=== PATIENT | female | born 1945 | race Two or more races ===

== ENCOUNTER → 2016-09-15 | Outpatient (CLI) | payer MEDICARE, OTHER ==
[2016-09-15 13:07] LABS: PROTHROMBIN TIME 25.9 SEC (11.4-15.4)
[2016-09-15 13:17] LABS: ALANINE AMINOTRANSFERASE 22 U/L (9-52); ALBUMIN 3.5 g/dL (3.5-5.0); ALKALINE PHOSPHATASE 72 U/L (38-126); ANION GAP 9 (5-19); ASPARTATE AMINO TRANSFERASE 18 U/L (14-36); BILIRUBIN,TOTAL 0.6 mg/dL (0.2-1.3); BLOOD UREA NITROGEN 13 mg/dL (7-20); CALCIUM 9.3 mg/dL (8.4-10.2); CARBON DIOXIDE 32 mmol/L (22-30); CHLORIDE 103 mmol/L (98-107); CHOLESTEROL 169.16 mg/dL (0-200); CREATININE RESULT 0.78 mg/dL (0.52-1.25); Direct HDL 58 mg/dL (>40); GLUCOSE 94 mg/dL (75-110); POTASSIUM 4.3 mmol/L (3.6-5.0); SODIUM 143.5 mmol/L (137-145); TOTAL PROTEIN 6.6 g/dL (6.3-8.2); TRIGLYCERIDES 85 mg/dL (<150)
[2016-09-15 13:29] LABS: DIRECT LDL 88 mg/dL (<100)
== END ==
LOC: OD 11:41
PROVIDERS: ATTEND Specialist
DX: Z79.01 Long term (current) use of anticoagulants (principal); E78.4 Other hyperlipidemia; Z79.899 Other long term (current) drug therapy
CPT/HCPCS: 36415; 80053; 80061; 85610

== ENCOUNTER → 2016-09-22 | Outpatient (CLI) | payer MEDICARE, OTHER | LOC: OD 16:51 | PROVIDERS: ATTEND Family Medicine | DX: M25.572 Pain in left ankle and joints of left foot (principal) ==

== ENCOUNTER → 2016-09-22 | Outpatient (CLI) | payer MEDICARE, OTHER ==
[2016-09-22 18:02] LABS: PROTHROMBIN TIME 31.8 SEC (11.4-15.4)
[2016-09-22 18:03] LABS: PARTIAL THROMBOPLASTIN TIME 45.9 SEC (23.5-35.8)
== END ==
LOC: OD 17:03
PROVIDERS: ATTEND Family Medicine
DX: Z79.01 Long term (current) use of anticoagulants (principal)
CPT/HCPCS: 36415; 85610; 85730

== ENCOUNTER 2016-09-26 12:17 | Emergency (ER) | payer MEDICARE, OTHER ==
--- NOTE | 2016-09-26 12:29 | ER Document Report ---
ED Medical Screen (RME) - General Stated Complaint: WEAKNESS Time seen by provider: 12:24 Mode of Arrival: Wheelchair Information source: Patient Notes: 71-year-old female complaining of swelling and pain to her left ankle that started Wednesday evening. She saw Dr. Wick who told her to go home and elevate and put ice on it. The pain then spread to her whole left side including her leg in the left side of her neck. Her left arm does not hurt. She is complaining of weakness all over her whole body not just the left side. The drooping of her right eyelid is normal. 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 TRAVEL OUTSIDE OF THE [place] IN LAST 30 DAYS: No - Related Data Allergies/Adverse Reactions: captopril [Captopril] Allergy (Severe, Verified 09/26/16 12:23) cough thimerosal [From Merthiolate] Allergy (Severe, Verified 09/26/16 12:23) severe rash Past Medical History - Past Medical History Cardiac Medical History: Reports: Hx Atrial Fibrillation - A flutter, Hx Congestive Heart Failure, Hx Hypercholesterolemia, Hx Heart Murmur - req SBE prophylaxis Denies: Hx Coronary Artery Disease, Hx Heart Attack, Hx Hypertension Pulmonary Medical History: Reports: Hx Asthma - COPD, Hx Bronchitis, Hx COPD Denies: Hx Pneumonia, Hx Tuberculosis Neurological Medical History: Denies: Hx Cerebrovascular Accident - QUESTIONABLE FOR STROKE, NEG CT SCAN 2009, Hx Seizures Endocrine Medical History: Reports: Hx Diabetes Mellitus Type 1, Hx Diabetes Mellitus Type 2 GI Medical History: Reports: Hx Hiatal Hernia. Denies: Hx Hepatitis, Hx Ulcer Musculoskeltal Medical History: Reports Hx Arthritis, Reports Hx Muscle Weakness - L. upper Skin Medical History: Reports Hx Cellulitis - (neck and shoulder) Infectious Medical History: Denies: Hx Hepatitis Past Surgical History: Reports: Hx Abdominal Surgery - hernia, bowel obstruction , Hx Bowel Surgery, Hx Breast Surgery, Hx Cardiac Catheterization, Hx Gynecologic Surgery - D&C, Hx Herniorrhaphy, Hx Hysterectomy, Hx Open Heart Surgery - CATHS, ABLATION, Hx Oral Surgery, Hx Orthopedic Surgery - R knee, R toe,R knee, Hx Tonsillectomy, Hx Tubal Ligation. Denies: Hx Mastectomy, Hx Pacemaker - Immunizations Hx Diphtheria, Pertussis, Tetanus Vaccination: Yes
[2016-09-26 13:41] LABS: ABSOLUTE EOSINOPHILS # (AUTO) 0.1 10^3/uL (0.0-0.6); ABSOLUTE LYMPHOCYTES (AUTO) 1.2 10^3/uL (0.5-4.7); ABSOLUTE MONOCYTES (AUTO) 0.7 10^3/uL (0.1-1.4); ABSOLUTE NEUT (AUTO) 3.9 10^3/uL (1.7-8.2); BASOPHILS % (AUTO) 0.8 % (0-2); HEMATOCRIT 37.2 % (36.0-47.0); HGB HCT DIFFERENCE -1.2; LYMPHOCYTES % (AUTO) 20.3 % (13-45); MEAN CORPUSCULAR HEMOGLOBIN 28.6 pg (27.0-33.4); MEAN CORPUSCULAR HGB CONC 32.4 g/dL (32.0-36.0); MEAN CORPUSCULAR VOLUME 88 fl (80-97); MONOCYTES % (AUTO) 11.4 % (3-13); RED BLOOD COUNT 4.22 10^6/uL (3.72-5.28); SEGMENTED NEUTROPHILS % (AUTO) 65.5 % (42-78); WHITE BLOOD COUNT 5.9 10^3/uL (4.0-10.5)
[2016-09-26 13:44] LABS: ALANINE AMINOTRANSFERASE 16 U/L (9-52); ALBUMIN 3.7 g/dL (3.5-5.0); ALKALINE PHOSPHATASE 82 U/L (38-126); ANION GAP 12 (5-19); ASPARTATE AMINO TRANSFERASE 23 U/L (14-36); BILIRUBIN,TOTAL 0.8 mg/dL (0.2-1.3); BLOOD UREA NITROGEN 10 mg/dL (7-20); CALCIUM 9.4 mg/dL (8.4-10.2); CARBON DIOXIDE 29 mmol/L (22-30); CHLORIDE 97 mmol/L (98-107); CREATININE RESULT 0.83 mg/dL (0.52-1.25); GLUCOSE 124 mg/dL (75-110); POTASSIUM 3.8 mmol/L (3.6-5.0); TOTAL PROTEIN 7.6 g/dL (6.3-8.2)
[2016-09-26 15:27] LABS: PROTHROMBIN TIME 42.3 SEC (11.4-15.4)
[2016-09-26 15:28] LABS: PARTIAL THROMBOPLASTIN TIME 70.5 SEC (23.5-35.8)
[2016-09-26 17:00] LABS: APPEARANCE,URINE CLEAR; BILIRUBIN,URINE NEGATIVE (NEGATIVE); GLUCOSE, URINE NEGATIVE (NEGATIVE); KETONES,URINE NEGATIVE (NEGATIVE); LEUKOCYTE ESTERASE,URINE NEGATIVE (NEGATIVE); NITRITE,URINE NEGATIVE (NEGATIVE); PROTEIN,URINE NEGATIVE (NEGATIVE); URINE SPECIFIC GRAVITY 1.009; UROBILINOGEN,URINE NEGATIVE mg/dL (<2.0)
--- NOTE | 2016-09-26 17:48 | ER Document Report ---
ED General - General Chief Complaint: Weakness Stated Complaint: WEAKNESS Mode of Arrival: Wheelchair TRAVEL OUTSIDE OF THE [place] IN LAST 30 DAYS: No - HPI Patient complains to provider of: left foot pain and swelling left-sided weakness Notes: Patient with left foot pain and swelling left-sided weakness ongoing for the last 2-4 days. Patient did recently see her PCP for these symptoms without any clear etiology. Patient denies any trauma or injury to her lower extremity patient states mostly the weakness seems to be and the whole entire's left side of her body and in her throat. Denies any nausea vomiting fevers chills painful swallowing difficulty swallowing. Patient does ambulated with a walker patient states no change in her ambulation denies any falls. 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 - Related Data Allergies/Adverse Reactions: captopril [Captopril] Allergy (Severe, Verified 09/26/16 12:23) cough thimerosal [From Merthiolate] Allergy (Severe, Verified 09/26/16 12:23) severe rash Past Medical History - General Information source: Patient - Social History Smoking Status: Never Smoker Chew tobacco use (# tins/day): No Frequency of alcohol use: None Drug Abuse: None Family History: Reviewed & Not Pertinent, Other Patient has suicidal ideation: No Patient has homicidal ideation: No - Past Medical History Cardiac Medical History: Reports: Hx Atrial Fibrillation - A flutter, Hx Congestive Heart Failure, Hx Hypercholesterolemia, Hx Heart Murmur - req SBE prophylaxis Denies: Hx Coronary Artery Disease, Hx Heart Attack, Hx Hypertension Pulmonary Medical History: Reports: Hx Asthma - COPD, Hx Bronchitis, Hx COPD Denies: Hx Pneumonia, Hx Tuberculosis Neurological Medical History: Denies: Hx Cerebrovascular Accident - QUESTIONABLE FOR STROKE, NEG CT SCAN 2009, Hx Seizures Endocrine Medical History: Reports: Hx Diabetes Mellitus Type 1, Hx Diabetes Mellitus Type 2 Renal/ Medical History: Denies: Hx Peritoneal Dialysis GI Medical History: Reports: Hx Hiatal Hernia. Denies: Hx Hepatitis, Hx Ulcer Musculoskeltal Medical History: Reports Hx Arthritis, Reports Hx Muscle Weakness - L. upper Skin Medical History: Reports Hx Cellulitis - (neck and shoulder) Infectious Medical History: Denies: Hx Hepatitis Past Surgical History: Reports: Hx Abdominal Surgery - hernia, bowel obstruction , Hx Bowel Surgery, Hx Breast Surgery, Hx Cardiac Catheterization, Hx Gynecologic Surgery - D&C, Hx Herniorrhaphy, Hx Hysterectomy, Hx Open Heart Surgery - CATHS, ABLATION, Hx Oral Surgery, Hx Orthopedic Surgery - R knee, R toe,R knee, Hx Tonsillectomy, Hx Tubal Ligation. Denies: Hx Mastectomy, Hx Pacemaker - Immunizations Hx Diphtheria, Pertussis, Tetanus Vaccination: Yes Hx Pneumococcal Vaccination: 09/06/10 Review of Systems - Review of Systems Constitutional: No symptoms reported EENT: No symptoms reported Cardiovascular: No symptoms reported Respiratory: No symptoms reported Gastrointestinal: No symptoms reported Genitourinary: No symptoms reported Female Genitourinary: No symptoms reported Musculoskeletal: Leg swelling, Other - Weakness Skin: No symptoms reported Hematologic/Lymphatic: No symptoms reported Neurological/Psychological: Other - Weakness Physical Exam - Vital signs Vitals: Temp Pulse Resp BP Pulse Ox 98.5 F 77 24 H 116/54 L 98 09/26/16 12:24 09/26/16 12:24 09/26/16 12:24 09/26/16 12:24 09/26/16 12:24 Interpretation: Normal - General General appearance: Appears well, Alert - HEENT Head: Normocephalic, Atraumatic Eyes: Normal Pupils: PERRL - Respiratory Respiratory status: No respiratory distress Chest status: Nontender Breath sounds: Normal Chest palpation: Normal - Cardiovascular Rhythm: Regular Heart sounds: Normal auscultation Murmur: No - Abdominal Inspection: Normal Distension: No distension Bowel sounds: Normal Tenderness: Nontender Organomegaly: No organomegaly - Back Back: Normal, Nontender - Extremities General upper extremity: Normal inspection, Nontender, Normal color, Normal ROM , Normal temperature General lower extremity: Nontender, Normal color, Normal ROM, Normal temperature , Normal weight bearing. No: Normal inspection - Patient has swelling left foot left leg greater than right pulses intact there is tenderness to palpation of the midfoot there is ecchymosis to the left lateral malleolus. Swelling does go to the calf there is some erythema but leg is not excessively warm not consistent with cellulitis, Onesimo's sign - Neurological Neuro grossly intact: Yes Cognition: Normal Orientation: AAOx4 Kim Coma Scale Eye Opening: Spontaneous [place] Coma Scale Verbal: Oriented [place] Coma Scale Motor: Obeys Commands [place] Coma Scale Total: 15 Speech: Normal Cranial nerves: Normal Motor strength normal: LUE, RUE, LLE, RLE Sensory: Normal - Psychological Associated symptoms: Normal affect, Normal mood - Skin Skin Temperature: Warm Skin Moisture: Dry Skin Color: Normal Course - Re-evaluation Re-evalutation: 09/26/16 22:33 X-ray shows possible cuboid fracture. This is consistent with the patient's tenderness on examination. Examination of the leg does not show signs of cellulitis. Unclear etiology is patient does have some ecchymosis to the lateral malleolus unaware of any trauma though. Patient's weakness that she is complaining about is inconsistent reexamination continuity director strength equal patient is able ambulate patient has no difficulty in swallowing there is no facial drooping. CT scan was performed as patient is on anticoagulation there is no signs of stroke or bleed. Discussed with family at length. Patient's lab work shows supratherapeutic Coumadin with no bleeding recommend patient hold her next Coumadin dose and resume regular dosing. Recommended patient follow-up with her PCP. Patient was placed in a postop shoe and discharged home. - Vital Signs Vital signs: Temp Pulse Resp BP Pulse Ox 98.2 F 78 22 H 126/60 H 99 09/26/16 18:10 09/26/16 18:10 09/26/16 18:10 09/26/16 18:10 09/26/16 18:10 - Laboratory Result Diagrams: 09/26/16 12:42 09/26/16 12:42 Laboratory results interpreted by me: 09/26/16 09/26/16 09/26/16 12:42 15:04 16:40 PT 42.3 H APTT 70.5 H Chloride 97 L Glucose 124 H Urine Blood SMALL H Procedures - Immobilization Left Foot Immobilizer type: Post-op shoe Performed by: PCT Post-Proc Neuro Vasc Exam: Normal Alignment checked and good: No Discharge - Discharge Clinical Impression: Weakness, Elevated INR Closed left cuboid fracture Qualifiers: Encounter type: initial encounter Fracture alignment: nondisplaced Qualified Code(s): S92.215A - Nondisplaced fracture of cuboid bone of left foot, initial encounter for closed fracture Condition: Good Disposition: HOME, SELF-CARE Instructions: Foot Fracture ([facility]), Post-Op Shoe ([facility]), Weakness ([facility]) Additional Instructions: Your CT of your head lab work showed no critical findings to explain her weakness. Elaborate does show that your INR is elevated. Please hold her dose of Coumadin tonight resume your regular Coumadin dosing tomorrow. I recommend following up with your physician in 3-5 days for repeat INR testing. Your x-ray her foot does show a cuboid fracture. Treatment at this time will involve placing you in a postop shoe or a hard sole shoe. Continue to take your Percocet pain medication at home as patient prescribed. Elevate your leg and place ice to aid in the swelling. Prescriptions: Oxycodone HCl/Acetaminophen [Percocet 5-325 mg Tablet] 1 - 2 tab PO Q4H PRN #15 tablet PRN Reason: Referrals: THONG HARRIS MD [Primary Care Provider] - Follow up in 3-5 days
[2016-09-26 19:02] VITALS: BP 126/60
== END 2016-09-26 18:10 | disposition home or self-care (01) ==
LOC: ER 12:17
DX: S92.215A Nondisplaced fracture of cuboid bone of left foot, initial encounter for closed fracture (principal); R53.1 Weakness; X58.XXXA Exposure to other specified factors, initial encounter
CPT/HCPCS: 36415; 70450; 80053; 81001; 84550; 85025; 85610; 85730; 99285

== ENCOUNTER → 2016-10-02 | Outpatient (CLI) | payer MEDICARE, OTHER ==
[2016-10-02 15:36] LABS: PROTHROMBIN TIME 35.9 SEC (11.4-15.4)
== END ==
LOC: OD 14:51
PROVIDERS: ATTEND Specialist
DX: I48.0 Paroxysmal atrial fibrillation (principal); Z79.01 Long term (current) use of anticoagulants
CPT/HCPCS: 36415; 85610

== ENCOUNTER → 2016-11-18 | Outpatient (CLI) | payer MEDICARE, OTHER ==
[2016-11-18 19:02] LABS: PROTHROMBIN TIME 37.5 SEC (11.4-15.4)
== END ==
LOC: OD 17:44
PROVIDERS: ATTEND Specialist
DX: I48.0 Paroxysmal atrial fibrillation (principal); Z79.01 Long term (current) use of anticoagulants
CPT/HCPCS: 36415; 85610

== ENCOUNTER → 2016-11-30 | Outpatient (CLI) | payer MEDICARE, OTHER | LOC: RAD 13:15 | PROVIDERS: ATTEND Surgery | DX: R22.2 Localized swelling, mass and lump, trunk (principal); L02.211 Cutaneous abscess of abdominal wall | CPT/HCPCS: 74177; 82565 ==

== ENCOUNTER → 2016-12-02 | Outpatient (CLI) | payer MEDICARE, OTHER ==
[2016-12-02 14:35] LABS: PARTIAL THROMBOPLASTIN TIME 30.2 SEC (23.5-35.8); PROTHROMBIN TIME 15.6 SEC (11.4-15.4)
== END ==
LOC: OD 13:56
PROVIDERS: ATTEND Physician Assistant
DX: Z79.01 Long term (current) use of anticoagulants (principal)
CPT/HCPCS: 36415; 85610; 85730

== ENCOUNTER 2016-12-17 21:22 | Observation (INO) | payer MEDICARE, OTHER ==
--- NOTE | 2016-12-17 21:38 | ER Document Report ---
ED Medical Screen (RME) - General Chief Complaint: General Weakness Stated Complaint: WEAKNESS Notes: 71-year-old female, reports reduced appetite, feeling dehydrated, lightheaded when she stands, intermittent abdominal pains, frequency of urination and feels like she cannot control when she is urinating. Denies back injury, fever, she states she feels generally weak but denies any new focal weaknesses. TRAVEL OUTSIDE OF THE [place] IN LAST 30 DAYS: No - Related Data Allergies/Adverse Reactions: captopril [Captopril] Allergy (Severe, Verified 09/26/16 12:23) cough thimerosal [From Merthiolate] Allergy (Severe, Verified 09/26/16 12:23) severe rash Past Medical History - Past Medical History Cardiac Medical History: Reports: Hx Atrial Fibrillation - A flutter, Hx Congestive Heart Failure, Hx Hypercholesterolemia, Hx Heart Murmur - req SBE prophylaxis Denies: Hx Coronary Artery Disease, Hx Heart Attack, Hx Hypertension Pulmonary Medical History: Reports: Hx Asthma - COPD, Hx Bronchitis, Hx COPD Denies: Hx Pneumonia, Hx Tuberculosis Neurological Medical History: Denies: Hx Cerebrovascular Accident - QUESTIONABLE FOR STROKE, NEG CT SCAN 2009, Hx Seizures Endocrine Medical History: Reports: Hx Diabetes Mellitus Type 1, Hx Diabetes Mellitus Type 2 Renal/ Medical History: Denies: Hx Peritoneal Dialysis GI Medical History: Reports: Hx Hiatal Hernia. Denies: Hx Hepatitis, Hx Ulcer Musculoskeltal Medical History: Reports Hx Arthritis, Reports Hx Muscle Weakness - L. upper Skin Medical History: Reports Hx Cellulitis - (neck and shoulder) Infectious Medical History: Denies: Hx Hepatitis Past Surgical History: Reports: Hx Abdominal Surgery - hernia, bowel obstruction , Hx Bowel Surgery, Hx Breast Surgery, Hx Cardiac Catheterization, Hx Gynecologic Surgery - D&C, Hx Herniorrhaphy, Hx Hysterectomy, Hx Open Heart Surgery - CATHS, ABLATION, Hx Oral Surgery, Hx Orthopedic Surgery - R knee, R toe,R knee, Hx Tonsillectomy, Hx Tubal Ligation. Denies: Hx Mastectomy, Hx Pacemaker - Immunizations Hx Diphtheria, Pertussis, Tetanus Vaccination: Yes Physical Exam - Abdominal Tenderness: Tender - Very mild generalized tenderness with no guarding or rigidity
[2016-12-17 22:44] LABS: APPEARANCE,URINE CLOUDY; BILIRUBIN,URINE NEGATIVE (NEGATIVE); GLUCOSE, URINE NEGATIVE (NEGATIVE); KETONES,URINE NEGATIVE (NEGATIVE); LEUKOCYTE ESTERASE,URINE LARGE (NEGATIVE); NITRITE,URINE NEGATIVE (NEGATIVE); PROTEIN,URINE 30 mg/dL (NEGATIVE); URINE SPECIFIC GRAVITY 1.006; UROBILINOGEN,URINE NEGATIVE mg/dL (<2.0)
[2016-12-17 22:55] LABS: ALANINE AMINOTRANSFERASE 32 U/L (9-52); ALBUMIN 3.5 g/dL (3.5-5.0); ALKALINE PHOSPHATASE 101 U/L (38-126); ANION GAP 15 (5-19); ASPARTATE AMINO TRANSFERASE 23 U/L (14-36); BILIRUBIN,DIRECT 0.3 mg/dL (0.0-0.4); BILIRUBIN,TOTAL 0.9 mg/dL (0.2-1.3); BLOOD UREA NITROGEN 23 mg/dL (7-20); CALCIUM 8.8 mg/dL (8.4-10.2); CARBON DIOXIDE 24 mmol/L (22-30); CHLORIDE 98 mmol/L (98-107); CREATINE KINASE 115 U/L (30-135); CREATININE RESULT 1.15 mg/dL (0.52-1.25); GLUCOSE 149 mg/dL (75-110); POTASSIUM 3.3 mmol/L (3.6-5.0); SODIUM 137.1 mmol/L (137-145); TOTAL PROTEIN 6.9 g/dL (6.3-8.2)
[2016-12-17] MEDS ORDERED: NORMAL SALINE 1000 ML 500 ML IV ONE (22:56)
--- NOTE | 2016-12-17 22:59 | ER Document Report ---
ED General - General Chief Complaint: General Weakness Stated Complaint: WEAKNESS Time seen by provider: 22:50 Notes: Patient is a 71-year-old female that comes emergency department for chief complaint of several days of worsening weakness, reduced appetite, intermittent abdominal pains, urinary frequency, and feeling weak and lightheaded when she stands. She denies headache. She denies fever, chest pain, shortness of breath. She denies any focal new weakness. Past medical history multiple comorbidities including CVA with right-sided deficit, hypertension, CHF, atrial fibrillation with Coumadin use, type II diabetes. TRAVEL OUTSIDE OF THE [place] IN LAST 30 DAYS: No - Related Data Allergies/Adverse Reactions: captopril [Captopril] Allergy (Severe, Verified 09/26/16 12:23) cough thimerosal [From Merthiolate] Allergy (Severe, Verified 09/26/16 12:23) severe rash Past Medical History - General Information source: Patient - Social History Smoking Status: Never Smoker Frequency of alcohol use: None Drug Abuse: None Lives with: Alone Family History: Reviewed & Not Pertinent, Other Patient has suicidal ideation: No Patient has homicidal ideation: No - Past Medical History Cardiac Medical History: Reports: Hx Atrial Fibrillation - A flutter, Hx Congestive Heart Failure, Hx Hypercholesterolemia, Hx Heart Murmur - req SBE prophylaxis Denies: Hx Coronary Artery Disease, Hx Heart Attack, Hx Hypertension Pulmonary Medical History: Reports: Hx Asthma - COPD, Hx Bronchitis, Hx COPD Denies: Hx Pneumonia, Hx Tuberculosis Neurological Medical History: Denies: Hx Cerebrovascular Accident - QUESTIONABLE FOR STROKE, NEG CT SCAN 2009, Hx Seizures Endocrine Medical History: Reports: Hx Diabetes Mellitus Type 2 Renal/ Medical History: Denies: Hx Peritoneal Dialysis GI Medical History: Reports: Hx Hiatal Hernia. Denies: Hx Hepatitis, Hx Ulcer Musculoskeltal Medical History: Reports Hx Arthritis, Reports Hx Muscle Weakness - L. upper Skin Medical History: Reports Hx Cellulitis - (neck and shoulder) Infectious Medical History: Denies: Hx Hepatitis Past Surgical History: Reports: Hx Abdominal Surgery - hernia, bowel obstruction , Hx Bowel Surgery, Hx Breast Surgery, Hx Cardiac Catheterization, Hx Gynecologic Surgery - D&C, Hx Herniorrhaphy, Hx Hysterectomy, Hx Open Heart Surgery - CATHS, ABLATION, Hx Oral Surgery, Hx Orthopedic Surgery - R knee, R toe,R knee, Hx Tonsillectomy, Hx Tubal Ligation. Denies: Hx Mastectomy, Hx Pacemaker - Immunizations Hx Diphtheria, Pertussis, Tetanus Vaccination: Yes Hx Pneumococcal Vaccination: 09/06/10 Review of Systems - Review of Systems Constitutional: See HPI EENT: No symptoms reported Cardiovascular: See HPI Respiratory: No symptoms reported Gastrointestinal: No symptoms reported Genitourinary: See HPI Female Genitourinary: No symptoms reported Musculoskeletal: No symptoms reported Skin: No symptoms reported Hematologic/Lymphatic: No symptoms reported Neurological/Psychological: No symptoms reported Physical Exam - Vital signs Vitals: Temp Pulse BP 99.7 F 78 139/64 H 12/17/16 21:28 12/17/16 21:28 12/17/16 21:28 Interpretation: Normal - General General appearance: Other - patient appears to be tired, but is not in distress. Patient ambulates with a cane slowly - HEENT Head: Normocephalic, Atraumatic Eyes: Normal Conjunctiva: Normal Extraocular movements intact: Yes Eyelashes: Normal Pupils: PERRL Sinus: Normal Nasal: Normal Mouth/Lips: Normal Mucous membranes: Normal Pharynx: Normal Neck: Normal - Respiratory Respiratory status: No respiratory distress Chest status: Nontender Breath sounds: Normal. No: Decreased air movement, Wheezing Chest palpation: Normal - Cardiovascular Rhythm: Regular Heart sounds: Normal auscultation Murmur: No - Abdominal Inspection: Normal Distension: No distension Bowel sounds: Normal Tenderness: Nontender. No: Tender, Guarding Organomegaly: No organomegaly - Back Back: Normal, Nontender - Extremities General upper extremity: Normal inspection, Nontender, Normal color, Normal ROM , Normal temperature General lower extremity: Normal inspection, Nontender, Normal color, Normal ROM , Normal temperature, Normal weight bearing. No: Onesimo's sign - Neurological Neuro grossly intact: Yes Cognition: Normal Orientation: AAOx4 [place] Coma Scale Eye Opening: Spontaneous [place] Coma Scale Verbal: Oriented [place] Coma Scale Motor: Obeys Commands Kim Coma Scale Total: 15 Speech: Normal Cranial nerves: Normal. 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 Urine culture placed, patient given a dose of Rocephin. No fever, no hypotension or tachycardia. No CVA tenderness or noted abdominal tenderness on examination. On reevaluation patient states that she told me incorrectly, she states that she actually has been having chest pain, she states that specifically today when she was getting up and moving around she would have a discomfort across the front of her chest which would then resolve when she rested. Patient denies any current chest pain or chest pain within the last several hours. Aspirin was given additionally. Patient had a negative cardiac catheterization 2 years ago, denies having a heart attack. EKG showing sinus rhythm with no T- wave inversions or ST segment changes in consecutive leads. No acute abnormalities noted. Cardiac enzymes initially negative. Patient discussed with Dr. Max. Discussed with Dr. Wick, patient will be admitted to the hospital, patient is very agreeable with this and states that she definitely did not want to go home. - Vital Signs Vital signs: Temp Pulse Resp BP Pulse Ox 99.7 F 78 22 H 114/41 L 97 12/17/16 21:28 12/17/16 21:28 12/18/16 04:01 12/18/16 04:01 12/18/16 04:01 - Laboratory Result Diagrams: 12/18/16 00:21 12/17/16 22:14 Laboratory results interpreted by me: 12/17/16 12/17/16 12/18/16 22:14 22:14 00:21 Hgb 11.2 L Hct 32.8 L RDW 14.8 H Seg Neutrophils % 80.7 H Lymphocytes % 10.4 L PT Potassium 3.3 L BUN 23 H Est GFR ( Amer) 57 L Est GFR (Non-Af Amer) 47 L Glucose 149 H Urine Protein 30 H Urine Blood MODERATE H Ur Leukocyte Esterase LARGE H 12/18/16 00:21 Hgb Hct RDW Seg Neutrophils % Lymphocytes % PT 36.5 H Potassium BUN Est GFR ( Amer) Est GFR (Non-Af Amer) Glucose Urine Protein Urine Blood Ur Leukocyte Esterase Discharge - Discharge Clinical Impression: Generalized weakness Chest pain Qualifiers: Chest pain type: unspecified Qualified Code(s): R07.9 - Chest pain, unspecified Urinary tract infection Qualifiers: Urinary tract infection type: site unspecified Hematuria presence: without hematuria Qualified Code(s): N39.0 - Urinary tract infection, site not specified Condition: Stable Disposition: ADMITTED INPATIENT Admitting Provider: Wick Unit Admitted: Telemetry
[2016-12-17] MEDS ORDERED: CEFTRIAXONE 1 GM/D5W RTU 50 ML IV ONE (23:28)
[2016-12-18 00:39] LABS: ABSOLUTE MONOCYTES (AUTO) 0.8 10^3/uL (0.1-1.4); ABSOLUTE NEUT (AUTO) 7.8 10^3/uL (1.7-8.2); BASOPHILS % (AUTO) 0.4 % (0-2); EOSINOPHILS % (AUTO) 0.3 % (0-6); HEMATOCRIT 32.8 % (36.0-47.0); HEMOGLOBIN 11.2 g/dL (12.0-15.5); HGB HCT DIFFERENCE 0.8; LYMPHOCYTES % (AUTO) 10.4 % (13-45); MEAN CORPUSCULAR HEMOGLOBIN 29.2 pg (27.0-33.4); MEAN CORPUSCULAR HGB CONC 34.2 g/dL (32.0-36.0); MEAN CORPUSCULAR VOLUME 85 fl (80-97); MONOCYTES % (AUTO) 8.2 % (3-13); RED BLOOD COUNT 3.84 10^6/uL (3.72-5.28); RED CELL DISTRIBUTION WIDTH 14.8 % (11.5-14.0); SEGMENTED NEUTROPHILS % (AUTO) 80.7 % (42-78); WHITE BLOOD COUNT 9.7 10^3/uL (4.0-10.5)
[2016-12-18 00:43] LABS: PROTHROMBIN TIME 36.5 SEC (11.4-15.4)
[2016-12-18 01:13] LABS: CREATINE KINASE MB 1.36 ng/mL (<4.55); TROPONIN I < 0.012 ng/mL
[2016-12-18] MEDS ORDERED: ASPIRIN 81 MG TABLET, CHEWABLE PO ONE (01:50)
[2016-12-18] MEDS ORDERED: POTASSIUM CHLORIDE 10 MEQ TABLET.SA PO ONE (03:01)
[2016-12-18] MEDS ORDERED: DEXTROSE 50%-WATER SYRINGE 25 GM/50 ML DOSE IV PRN (05:54)
[2016-12-18] MEDS ORDERED: DEXTROSE 40% GEL 15 GM TUBE PO PRN ×3 (05:54→07:36)
[2016-12-18] MEDS ORDERED: DEXTROSE 40% GEL 15 GM TUBE X 2 PO PRN (05:54)
[2016-12-18] MEDS ORDERED: INSULIN LISPRO 100 UNIT/ML 3 ML VIAL SUBCUT PRN (05:54)
[2016-12-18] MEDS ORDERED: DEXTROSE 50%-WATER SYRINGE 12.5 GM/25 ML DOSE IV PRN (05:54)
[2016-12-18] MEDS ORDERED: GLUCAGON,HUMAN RECOMB 1 MG INJ IM PRN ×2 (05:54→07:36)
[2016-12-18] MEDS ORDERED: DEXTROSE 50%-WATER 25 GM/50 ML DISP.SYRIN IV PRN ×2 (07:36)
--- NOTE | 2016-12-18 07:39 | EKG REPORT ---
SEVERITY:- BORDERLINE ECG - SINUS RHYTHM BORDERLINE T ABNORMALITIES, ANTERIOR LEADS : Confirmed by: Srikanth Valencia MD 18-Dec-2016 07:39:07
[2016-12-18 10:25] LABS: CREATINE KINASE MB 1.32 ng/mL (<4.55)
[2016-12-18 10:28] LABS: TROPONIN I < 0.012 ng/mL
--- NOTE | 2016-12-18 11:19 | PDOC H&P ---
History of Present Illness Admission Date/PCP: 12/18/16 05:33 THONG HARRIS MD Patient complains of: Weakness and the chest pain History of Present Illness: LAM PETIT is a 71 year old female This is a 71-year-old female with a multiple medical problems including the history of the hypertension hyperlipidemia type 2 diabetes mellitus and history of the coronary artery disease and history of the cerebrovascular accident with the history of the fibromyalgia the patient's and the multiple other abdominal wall issues with a chronic wound came to the emergency department with the complaint of generalized weakness and not feeling well. Patient also complains of chest pain which is ongoing problems more left and right both side. Patient have a cardiac cath was done 2 years back and was stable and patient also see her Dr. Bernal for his coronary artery disease and A. fib. Patient also noticed that her Coumadin level is very up and down since last several months and so many dose was changed her Dr. gonzalez office In the ER workup patient's EKG and a cardiac enzyme was all stable and patient' s potassium was low and possible urinary tract infections Patient was given IV Rocephin 1 g and replace the potassiums Patient's currently denied any chest pain denied any shortness of breath. Patient INR is 3.47 Past Medical History Cardiac Medical History: Reports: Atrial Fibrillation - A flutter, Congestive Heart Failure, Hyperlipidema, Heart Murmur - req SBE prophylaxis Denies: Coronary Artery Disease, Myocardial Infarction, Hypertension Pulmonary Medical History: Reports: Asthma - COPD, Bronchitis, Chronic Obstructive Pulmonary Disease (COPD), Sleep Apnea Denies: Pneumonia, Tuberculosis Neurological Medical History: Reports: Ischemic CVA Denies: Seizures Endocrine Medical History: Reports: Diabetes Mellitus Type 2 Renal/ Medical History: Reports: Chronic Kidney Disease Malignancy Medical History: Reports: Cervical Cancer GI Medical History: Reports: Hiatal Hernia Denies: Hepatitis GI History Note: Anemia and currently see a Dr. Pierce for that Musculoskeltal Medical History: Reports: Arthritis Psychiatric Medical History: Reports: Depression, General Anxiety Disorder Psychiatric History Note: Fibromyalgia Hematology: Reports: Anemia - hx of Denies: Hemophilia, Sickle Cell Disease Past Surgical History Past Surgical History: Reports: 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, Cardiac Catheterization, Herniorrhaphy, Hysterectomy, Orthopedic Surgery - R knee, R toe ,R knee, Tonsillectomy, Tubal Ligation Denies: Mastectomy, Pacemaker Social History Lives with: Alone Smoking Status: Former Smoker Number of Years Smokin Last Time Smoked: 1991 Frequency of Alcohol Use: None Hx Recreational Drug Use: No Hx Prescription Drug Abuse: No - Advance Directive Resuscitation Status: Full Code Family History Family History: Reviewed & Not Pertinent, Other Parental Family History Reviewed: Yes Children Family History Reviewed: Yes Sibling(s) Family History Reviewed.: Yes Medication/Allergy Home Medications: Albuterol Sulfate [Proair HFA] 1 puff IH Q4HP PRN 12/18/16 Alprazolam [Xanax 0.25 mg Tablet] 0.25 mg PO DAILYP PRN 12/18/16 Atorvastatin Calcium [Lipitor 10 mg Tablet] 10 mg PO DAILY 12/18/16 Benazepril HCl [Lotensin 10 mg Tablet] 10 mg PO DAILY 12/18/16 Duloxetine HCl [Cymbalta] 60 mg PO DAILY 12/18/16 Escitalopram Oxalate [Lexapro] 5 mg PO QHS 12/18/16 Fluticasone Propionate [Flonase Nasal [place] 50 Mcg/[place] 16 gm] 2 spray NASL BID 12/18/16 Fluticasone/Salmeterol [Advair 250-50 Diskus 14 Dose/Diskus] 1 puff IH BID 12/18 Furosemide [Lasix] 20 mg PO DAILY 12/18/16 Hydrochlorothiazide 25 mg PO DAILY 12/18/16 Levothyroxine Sodium [Synthroid] 125 mcg PO DAILY 12/18/16 Lubiprostone [Amitiza 24 Mcg Capsule] 24 mcg PO BIDBS 12/18/16 Metoprolol Succinate [Toprol Xl 25 mg Tab.sr] 37.5 mg PO DAILY 12/18/16 Montelukast Sodium [Singulair 10 mg Tablet] 10 mg PO QPM 12/18/16 Oxycodone HCl/Acetaminophen [Percocet 5-325 mg Tablet] 1 tab PO BIDP PRN Polyethylene Glycol 3350 [Miralax Powder 17 gm/Packet] 17 gm PO QHS 12/18/16 Sitagliptin Phosphate [Januvia] 100 mg PO DAILY 12/18/16 Tiotropium [place] [Spiriva Handihaler 18 mcg/dose (30 Dose)] 1 cap IH DAILY Warfarin Sodium [Coumadin 5 mg Tablet] 5 mg PO QHS 12/18/16 Allergies/Adverse Reactions: captopril [Captopril] Allergy (Severe, Verified 09/26/16 12:23) cough thimerosal [From Merthiolate] Allergy (Severe, Verified 09/26/16 12:23) severe rash Review of Systems Constitutional: PRESENT: anorexia, fatigue, weakness. ABSENT: chills, fever(s) , headache(s), weight gain, weight loss Eyes: ABSENT: visual disturbances Ears: ABSENT: hearing changes Cardiovascular: PRESENT: chest pain. ABSENT: dyspnea on exertion, edema, orthropnea, palpitations Respiratory: ABSENT: cough, hemoptysis Gastrointestinal: PRESENT: abdominal pain. ABSENT: constipation, diarrhea, hematemesis, hematochezia, nausea, vomiting Genitourinary: ABSENT: dysuria, hematuria Musculoskeletal: ABSENT: joint swelling Integumentary: ABSENT: rash, wounds Neurological: ABSENT: abnormal gait, abnormal speech, confusion, dizziness, focal weakness, syncope Psychiatric: ABSENT: anxiety, depression, homidical ideation, suicidal ideation Endocrine: ABSENT: cold intolerance, heat intolerance, menstrual abnormalities, polydipsia, polyuria Hematologic/Lymphatic: ABSENT: easy bleeding, easy bruising, lymphadenopathy Physical Exam Vital Signs: Temp Pulse Resp BP Pulse Ox 99.8 F 85 18 135/56 H 100 12/18/16 08:22 12/18/16 08:22 12/18/16 08:22 12/18/16 08:22 12/18/16 08:22 Intake & Output 12/17/16 12/18/16 12/19/16 06:59 06:59 06:59 Intake Total 120 Balance 120 Weight 88.6 kg General appearance: PRESENT: no acute distress, well-developed, well-nourished Head exam: PRESENT: atraumatic, normocephalic Eye exam: PRESENT: conjunctiva pink, EOMI, PERRLA. ABSENT: scleral icterus Ear exam: PRESENT: normal external ear exam Mouth exam: PRESENT: moist, tongue midline Neck exam: PRESENT: full ROM. ABSENT: carotid bruit, JVD, lymphadenopathy, thyromegaly Respiratory exam: PRESENT: clear to auscultation michele Cardiovascular exam: PRESENT: RRR. ABSENT: diastolic murmur, rubs, systolic murmur Pulses: PRESENT: normal dorsalis pedis pul, +2 pedal pulses bilateral Vascular exam: PRESENT: normal capillary refill GI/Abdominal exam: PRESENT: normal bowel sounds, soft. ABSENT: distended, guarding, mass, organolmegaly, rebound, tenderness Rectal exam: PRESENT: deferred Neurological exam: PRESENT: alert, awake, oriented to person, oriented to place , oriented to time, oriented to situation, CN II-XII grossly intact. ABSENT: motor sensory deficit Psychiatric exam: PRESENT: appropriate affect, normal mood. ABSENT: homicidal ideation, suicidal ideation Skin exam: PRESENT: dry, intact, warm. ABSENT: cyanosis, rash Results Laboratory Results: 12/18/16 12/18/16 09:30 09:30 Creatine Kinase 91 CK-MB (CK-2) 1.32 Troponin I < 0.012 Impressions: Chest X-Ray 12/17/16 21:40 IMPRESSION: HEART ENLARGED WITHOUT FAILURE. NO OTHER SIGNIFICANT RADIOGRAPHIC FINDING IN THE CHEST. Assessment & Plan - Diagnosis (1) Chest pain Qualifiers: Chest pain type: unspecified Qualified Code(s): R07.9 - Chest pain, unspecified Is this a current diagnosis for this admission?: YesPlan: Patient initial EKG and cardiac enzyme is negative most likely a noncardiac but with the significant comorbidity will check the patient's undercar specialist for further evaluations (2) Urinary tract infection Qualifiers: Urinary tract infection type: site unspecified Hematuria presence: without hematuria Qualified Code(s): N39.0 - Urinary tract infection, site not specified Is this a current diagnosis for this admission?: YesPlan: Start the patient on IV Rocephin patient also have a history of the urinary incontinent and patient used to see the Dr. Lowe the urologist regularly (3) Coronary artery disease Qualifiers: Coronary Disease-Associated Artery/Lesion type: unspecified vessel or lesion type Is this a current diagnosis for this admission?: YesPlan: Follow with the cardiology (4) Hyperlipidemia Qualifiers: Hyperlipidemia type: unspecified Qualified Code(s): E78.5 - Hyperlipidemia, unspecified Is this a current diagnosis for this admission?: YesPlan: Stable (5) Sleep apnea Qualifiers: Sleep apnea type: unspecified type Qualified Code(s): G47.30 - Sleep apnea, unspecified Is this a current diagnosis for this admission?: YesPlan: Uses CPAP machine daily (6) Depression Qualifiers: Depression Type: other depression Qualified Code(s): F32.89 - Other specified depressive episodes Is this a current diagnosis for this admission?: YesPlan: Continues to current medications (7) Generalized weakness Is this a current diagnosis for this admission?: YesPlan: With multifactorial will get the CT of the head and continues to current other medications replace the potassium and continues to IV antibiotic until the cultures come back (8) Hypertension Qualifiers: Hypertension type: unspecified secondary hypertension Qualified Code (s): I15.9 - Secondary hypertension, unspecified; I15 - Secondary hypertension Is this a current diagnosis for this admission?: YesPlan: Currently stable (9) Chronic atrial fibrillation Is this a current diagnosis for this admission?: YesPlan: Check the PT/INR daily while in the hospital and patients follow Dr. Alexander's office regularly - Time Time Spent: 50 to 70 Minutes Medications reviewed and adjusted accordingly: Yes Anticipated discharge: Home Within: within 48 hours - Inpatient Certification Medical Necessity: Need Close Monitoring Due to Risk of Patient Decompensation, Need for IV Antibiotics Post Hospital Care: [employer] Director Documentation - Plan Summary Plan Summary: We will get the CT of the head and continues to current other medications consult the cardiology and the physical therapy. If everything looks stable patients can discharge home with the p.o. antibiotic
[2016-12-18] MEDS ORDERED: ALBUTEROL SULFATE HFA (90 MCG/PUFF) 8 GM MDI (1 MDI/ER DISP) IH PRN (11:20)
[2016-12-18] MEDS ORDERED: OXYCODONE-ACETAMINOPHEN 5-325 MG TABLET PO PRN (11:20)
[2016-12-18] MEDS ORDERED: ALPRAZOLAM 0.25 MG TABLET PO PRN (11:20)
[2016-12-18] MEDS ORDERED: ALBUTEROL SULFATE HFA (90 MCG/PUFF) 200 PUFF/8.5 GM MDI IH PRN (11:32)
[2016-12-18] MEDS: INSULIN REG, HUMAN 100 UNIT/ML 3 ML VIAL (PYX) SUBCUT PRN ×2 (12:57→21:27)
[2016-12-18] MEDS ORDERED: LEVOTHYROXINE SODIUM 0.025 MG TABLET PO ONE (13:00)
[2016-12-18] MEDS ORDERED: LEVOTHYROXINE SODIUM 0.1 MG TABLET PO ONE (13:00)
[2016-12-18 16:52] LABS: CREATINE KINASE MB 0.74 ng/mL (<4.55)
[2016-12-18 16:58] LABS: TROPONIN I < 0.012 ng/mL
[2016-12-18] MEDS ORDERED: ACETAMINOPHEN 325 MG TABLET PO PRN (17:04)
[2016-12-18] MEDS: FLUTICASONE NASAL SPRAY 50 MCG/SPRY 120 SPRAY/16 GM NASL SCH (17:12)
[2016-12-18] MEDS: FLUTICASONE/SALMETEROL DISKUS 250-50 MCG/DOSE IH SCH (17:12)
[2016-12-18] MEDS: LUBIPROSTONE 24 MCG CAPSULE PO SCH (17:12)
[2016-12-18] MEDS: MONTELUKAST SODIUM 10 MG TABLET PO SCH (17:12)
[2016-12-18] MEDS: ESCITALOPRAM OXALATE 10 MG TABLET PO SCH (21:28)
[2016-12-18] MEDS: CEFTRIAXONE 1 GM/D5W RTU 1 GM/50 ML RTUPB IV SCH (21:28)
[2016-12-18] MEDS: POLYETHYLENE GLYCOL 3350 POWDER 17 GM/1 PACKET PO SCH (21:28)
[2016-12-18] MEDS ORDERED: (PENDING PHARMACY ID) (Warfarin Sodium 5 MG) PO SCH (22:00)
[2016-12-18] MEDS ORDERED: (PENDING PHARMACY ID) (Escitalopram Oxalate [Lexapro] 5 MG) PO SCH (22:00)
[2016-12-18 23:27] LABS: CREATINE KINASE MB 0.57 ng/mL (<4.55)
[2016-12-18 23:31] LABS: TROPONIN I < 0.012 ng/mL
[2016-12-19] MEDS: FLUTICASONE/SALMETEROL DISKUS 250-50 MCG/DOSE IH SCH ×2 (06:04→17:36)
[2016-12-19 06:53] LABS: ANION GAP 11 (5-19); BLOOD UREA NITROGEN 17 mg/dL (7-20); CALCIUM 8.7 mg/dL (8.4-10.2); CARBON DIOXIDE 25 mmol/L (22-30); CHLORIDE 106 mmol/L (98-107); CREATININE RESULT 0.98 mg/dL (0.52-1.25); GLUCOSE 153 mg/dL (75-110); POTASSIUM 3.7 mmol/L (3.6-5.0); PROTHROMBIN TIME 32.2 SEC (11.4-15.4); SODIUM 142.2 mmol/L (137-145)
[2016-12-19 07:19] LABS: ABSOLUTE BASOPHILS # (AUTO) 0.1 10^3/uL (0.0-0.2); ABSOLUTE EOSINOPHILS # (AUTO) 0.1 10^3/uL (0.0-0.6); ABSOLUTE MONOCYTES (AUTO) 0.4 10^3/uL (0.1-1.4); ABSOLUTE NEUT (AUTO) 3.5 10^3/uL (1.7-8.2); BASOPHILS % (AUTO) 1.1 % (0-2); EOSINOPHILS % (AUTO) 1.8 % (0-6); HEMATOCRIT 32.5 % (36.0-47.0); HGB HCT DIFFERENCE 0.5; LYMPHOCYTES % (AUTO) 19.6 % (13-45); MEAN CORPUSCULAR HEMOGLOBIN 28.7 pg (27.0-33.4); MEAN CORPUSCULAR HGB CONC 33.8 g/dL (32.0-36.0); MEAN CORPUSCULAR VOLUME 85 fl (80-97); MONOCYTES % (AUTO) 8.6 % (3-13); RED BLOOD COUNT 3.84 10^6/uL (3.72-5.28); RED CELL DISTRIBUTION WIDTH 14.9 % (11.5-14.0); SEGMENTED NEUTROPHILS % (AUTO) 68.9 % (42-78)
[2016-12-19] MEDS ORDERED: (PENDING PHARMACY ID) (Levothyroxine Sodium [Synthroid] 125 MCG) PO SCH (10:00)
[2016-12-19] MEDS: SITAGLIPTIN PHOSPHATE 50 MG TABLET PO SCH (10:06)
[2016-12-19] MEDS: ATORVASTATIN CALCIUM 10 MG TABLET PO SCH (10:07)
[2016-12-19] MEDS: FUROSEMIDE 20 MG TABLET PO SCH (10:07)
[2016-12-19] MEDS: LEVOTHYROXINE SODIUM 0.025 MG TABLET PO SCH (10:07)
[2016-12-19] MEDS: BENAZEPRIL HCL 10 MG TABLET PO SCH (10:08)
[2016-12-19] MEDS: LEVOTHYROXINE SODIUM 0.1 MG TABLET PO SCH (10:08)
[2016-12-19] MEDS: DULOXETINE HCL 30 MG CAPSULE.DR PO SCH (10:08)
[2016-12-19] MEDS: FLUTICASONE NASAL SPRAY 50 MCG/SPRY 120 SPRAY/16 GM NASL SCH ×2 (10:08→17:37)
[2016-12-19] MEDS: LUBIPROSTONE 24 MCG CAPSULE PO SCH ×2 (10:09→16:35)
[2016-12-19] MEDS: TIOTROPIUM BROMIDE DPI 5 CAP/KIT (18 MCG/CAP) IH SCH (10:09)
[2016-12-19] MEDS: METOPROLOL SUCCINATE 25 MG TAB.SR.24H PO SCH (10:10)
[2016-12-19] MEDS: INSULIN REG, HUMAN 100 UNIT/ML 3 ML VIAL (PYX) SUBCUT PRN (16:37)
--- NOTE | 2016-12-19 16:58 | PDOC PROGRESS REPORT ---
Subjective Progress Note for:: 12/19/16 Subjective:: Patient was admitted yesterday by Dr. Wick because of chest pain, UTI and generalized fatigue. He was seen by the bedside Physical Exam Vital Signs: Temp Pulse Resp BP Pulse Ox 95.8 F L 67 18 124/55 L 98 12/19/16 11:48 12/19/16 14:00 12/19/16 11:48 12/19/16 11:48 12/19/16 11:48 Intake & Output 12/18/16 12/19/16 12/20/16 06:59 06:59 06:59 Intake Total 120 1160 Output Total 200 Balance 120 960 Weight 88.6 kg General appearance: PRESENT: no acute distress, well-developed, well-nourished Head exam: PRESENT: atraumatic, normocephalic Eye exam: PRESENT: conjunctiva pink, EOMI, PERRLA Ear exam: PRESENT: normal external ear exam Mouth exam: PRESENT: moist, tongue midline Neck exam: PRESENT: full ROM Respiratory exam: PRESENT: clear to auscultation michele Cardiovascular exam: PRESENT: RRR, +S1, +S2 Vascular exam: PRESENT: normal capillary refill GI/Abdominal exam: PRESENT: normal bowel sounds, soft Rectal exam: PRESENT: deferred Neurological exam: PRESENT: alert, awake, oriented to person, oriented to place , oriented to time, oriented to situation, CN II-XII grossly intact Psychiatric exam: PRESENT: appropriate affect, normal mood Skin exam: PRESENT: dry, intact, warm Results Laboratory Results: 12/19/16 06:10 12/19/16 06:10 12/19/16 12/19/16 06:10 06:10 WBC 5.0 RBC 3.84 Hgb 11.0 L Hct 32.5 L MCV 85 MCH 28.7 MCHC 33.8 RDW 14.9 H Plt Count 259 Seg Neutrophils % 68.9 Lymphocytes % 19.6 Monocytes % 8.6 Eosinophils % 1.8 Basophils % 1.1 Absolute Neutrophils 3.5 Absolute Lymphocytes 1.0 Absolute Monocytes 0.4 Absolute Eosinophils 0.1 Absolute Basophils 0.1 Sodium 142.2 Potassium 3.7 Chloride 106 Carbon Dioxide 25 Anion Gap 11 BUN 17 Creatinine 0.98 Est GFR ( Amer) > 60 Est GFR (Non-Af Amer) 56 L Glucose 153 H Calcium 8.7 12/18/16 12/18/16 12/18/16 09:30 09:30 16:00 Creatine Kinase 91 66 CK-MB (CK-2) 1.32 Troponin I < 0.012 12/18/16 12/18/16 12/18/16 16:00 22:51 22:51 Creatine Kinase 56 CK-MB (CK-2) 0.74 0.57 Troponin I < 0.012 < 0.012 Impressions: Chest X-Ray 12/17/16 21:40 IMPRESSION: HEART ENLARGED WITHOUT FAILURE. NO OTHER SIGNIFICANT RADIOGRAPHIC FINDING IN THE CHEST. Head CT 12/18/16 00:00 IMPRESSION: NO ACUTE INTRACRANIAL PROCESS. NO SIGNIFICANT CHANGE FROM PRIOR STUDY. Assessment & Plan - Diagnosis (1) Chest pain Qualifiers: Chest pain type: unspecified Qualified Code(s): R07.9 - Chest pain, unspecified Is this a current diagnosis for this admission?: Yes (2) Chronic atrial fibrillation Is this a current diagnosis for this admission?: Yes (3) Coronary artery disease Qualifiers: Coronary Disease-Associated Artery/Lesion type: unspecified vessel or lesion type Is this a current diagnosis for this admission?: Yes (4) Depression Qualifiers: Depression Type: other depression Qualified Code(s): F32.89 - Other specified depressive episodes Is this a current diagnosis for this admission?: Yes (5) Generalized weakness Is this a current diagnosis for this admission?: Yes (6) Hyperlipidemia Qualifiers: Hyperlipidemia type: unspecified Qualified Code(s): E78.5 - Hyperlipidemia, unspecified Is this a current diagnosis for this admission?: Yes (7) Hypertension Qualifiers: Hypertension type: unspecified secondary hypertension Qualified Code (s): I15.9 - Secondary hypertension, unspecified; I15 - Secondary hypertension Is this a current diagnosis for this admission?: Yes (8) Sleep apnea Qualifiers: Sleep apnea type: unspecified type Qualified Code(s): G47.30 - Sleep apnea, unspecified Is this a current diagnosis for this admission?: Yes
[2016-12-19] MEDS: MONTELUKAST SODIUM 10 MG TABLET PO SCH (17:36)
[2016-12-19] MEDS: WARFARIN SODIUM 5 MG TABLET PO SCH (21:58)
[2016-12-19] MEDS: CEFTRIAXONE 1 GM/D5W RTU 1 GM/50 ML RTUPB IV SCH (21:59)
[2016-12-19] MEDS: ESCITALOPRAM OXALATE 10 MG TABLET PO SCH (21:59)
[2016-12-19] MEDS ORDERED: (PENDING PHARMACY ID) (Warfarin Sodium 5 MG) PO SCH (22:00)
[2016-12-19] MEDS: POLYETHYLENE GLYCOL 3350 POWDER 17 GM/1 PACKET PO SCH (22:16)
[2016-12-20 05:07] LABS: PROTHROMBIN TIME 28.8 SEC (11.4-15.4)
[2016-12-20] MEDS: FLUTICASONE/SALMETEROL DISKUS 250-50 MCG/DOSE IH SCH ×2 (05:27→17:38)
[2016-12-20 05:31] LABS: ANION GAP 13 (5-19); BLOOD UREA NITROGEN 19 mg/dL (7-20); CALCIUM 8.5 mg/dL (8.4-10.2); CARBON DIOXIDE 24 mmol/L (22-30); CHLORIDE 103 mmol/L (98-107); CREATININE RESULT 1.02 mg/dL (0.52-1.25); GLUCOSE 125 mg/dL (75-110); POTASSIUM 3.5 mmol/L (3.6-5.0); SODIUM 139.9 mmol/L (137-145)
[2016-12-20] MEDS: METOPROLOL SUCCINATE 25 MG TAB.SR.24H PO SCH (10:19)
[2016-12-20] MEDS: TIOTROPIUM BROMIDE DPI 5 CAP/KIT (18 MCG/CAP) IH SCH (10:19)
[2016-12-20] MEDS: LUBIPROSTONE 24 MCG CAPSULE PO SCH ×2 (10:19→17:38)
[2016-12-20] MEDS: BENAZEPRIL HCL 10 MG TABLET PO SCH (10:20)
[2016-12-20] MEDS: DULOXETINE HCL 30 MG CAPSULE.DR PO SCH (10:20)
[2016-12-20] MEDS: LEVOTHYROXINE SODIUM 0.025 MG TABLET PO SCH (10:20)
[2016-12-20] MEDS: FUROSEMIDE 20 MG TABLET PO SCH (10:20)
[2016-12-20] MEDS: LEVOTHYROXINE SODIUM 0.1 MG TABLET PO SCH (10:20)
[2016-12-20] MEDS: SITAGLIPTIN PHOSPHATE 50 MG TABLET PO SCH (10:20)
[2016-12-20] MEDS: ATORVASTATIN CALCIUM 10 MG TABLET PO SCH (10:20)
[2016-12-20] MEDS: FLUTICASONE NASAL SPRAY 50 MCG/SPRY 120 SPRAY/16 GM NASL SCH ×2 (10:21→17:38)
[2016-12-20] MEDS: MONTELUKAST SODIUM 10 MG TABLET PO SCH (17:38)
[2016-12-20] MEDS: CEFTRIAXONE 1 GM/D5W RTU 1 GM/50 ML RTUPB IV SCH (22:29)
[2016-12-20] MEDS: ESCITALOPRAM OXALATE 10 MG TABLET PO SCH (22:29)
[2016-12-20] MEDS: WARFARIN SODIUM 5 MG TABLET PO SCH (22:42)
[2016-12-20] MEDS: POLYETHYLENE GLYCOL 3350 POWDER 17 GM/1 PACKET PO SCH (22:42)
[2016-12-21] MEDS: FLUTICASONE/SALMETEROL DISKUS 250-50 MCG/DOSE IH SCH (05:35)
[2016-12-21 06:23] LABS: PROTHROMBIN TIME 37.3 SEC (11.4-15.4)
[2016-12-21 06:40] LABS: ANION GAP 11 (5-19); BLOOD UREA NITROGEN 15 mg/dL (7-20); CALCIUM 8.6 mg/dL (8.4-10.2); CARBON DIOXIDE 26 mmol/L (22-30); CHLORIDE 107 mmol/L (98-107); CREATININE RESULT 0.97 mg/dL (0.52-1.25); GLUCOSE 143 mg/dL (75-110); POTASSIUM 3.6 mmol/L (3.6-5.0); SODIUM 144.2 mmol/L (137-145)
--- NOTE | 2016-12-21 08:01 | PDOC DISCHARGE SUMMARY ---
General - Admit/Disc Date/PCP Admission Date/Primary Care Provider: 12/18/16 05:33 THONG HARRIS MD Discharge Date: 12/21/16 - Discharge Diagnosis (1) Chest pain Is this a current diagnosis for this admission?: YesSummary: Assessment discussed with the Dr. Gama and seen by Dr. Gama suggest is a noncardiac chest pain and follow as outpatient (2) Urinary tract infection Is this a current diagnosis for this admission?: YesSummary: Start the patient on by mouth Keflex (3) Coronary artery disease Is this a current diagnosis for this admission?: YesSummary: Currently stable (4) Hyperlipidemia Is this a current diagnosis for this admission?: YesSummary: Continues the current medications (5) Sleep apnea Is this a current diagnosis for this admission?: YesSummary: Continues to use a CPAP machine (6) Depression Is this a current diagnosis for this admission?: YesSummary: Follow with the psych (7) Generalized weakness Is this a current diagnosis for this admission?: YesSummary: Is likely from underlying urinary tract infections currently all stable (8) Hypertension Is this a current diagnosis for this admission?: YesSummary: Is currently running low and we'll hold the hydrochlorothiazide and the lisinopril (9) Chronic atrial fibrillation Is this a current diagnosis for this admission?: YesSummary: Patient's follow with the Dr. Gama the Coumadin and discuss the patient and Dr. Gama about the INR level in the dose - Additional Information Resuscitation Status: Full Code Discharge Diet: Diabetic Discharge Activity: Activity As Tolerated Home Medications: Albuterol Sulfate [Proair HFA] 1 puff IH Q4HP PRN 12/18/16 Alprazolam [Xanax 0.25 mg Tablet] 0.25 mg PO DAILYP PRN 12/18/16 Atorvastatin Calcium [Lipitor 10 mg Tablet] 10 mg PO DAILY 12/18/16 Duloxetine HCl [Cymbalta] 60 mg PO DAILY 12/18/16 Escitalopram Oxalate [Lexapro] 5 mg PO QHS 12/18/16 Fluticasone Propionate [Flonase Nasal [place] 50 Mcg/[place] 16 gm] 2 spray NASL BID 12/18/16 Fluticasone/Salmeterol [Advair 250-50 Diskus 14 Dose/Diskus] 1 puff IH BID 12/18 Furosemide [Lasix] 20 mg PO DAILY 12/18/16 Levothyroxine Sodium [Synthroid] 125 mcg PO DAILY 12/18/16 Lubiprostone [Amitiza 24 Mcg Capsule] 24 mcg PO BIDBS 12/18/16 Metoprolol Succinate [Toprol Xl 25 mg Tab.sr] 37.5 mg PO DAILY 12/18/16 Montelukast Sodium [Singulair 10 mg Tablet] 10 mg PO QPM 12/18/16 Oxycodone HCl/Acetaminophen [Percocet 5-325 mg Tablet] 1 tab PO BIDP PRN Polyethylene Glycol 3350 [Miralax Powder 17 gm/Packet] 17 gm PO QHS 12/18/16 Sitagliptin Phosphate [Januvia] 100 mg PO DAILY 12/18/16 Tiotropium [place] [Spiriva [place] 18 mcg/dose (30 Dose)] 1 cap IH DAILY Warfarin Sodium [Coumadin 5 mg Tablet] 5 mg PO QHS 12/18/16 Cephalexin Monohydrate [Keflex 500 mg Capsule] 500 mg PO BID #14 capsule History of Present Illness History of Present Illness: LAM PETIT is a 71 year old female This is a 71-year-old female with a multiple medical problems including the history of the hypertension hyperlipidemia type 2 diabetes mellitus and history of the coronary artery disease and history of the cerebrovascular accident with the history of the fibromyalgia the patient's and the multiple other abdominal wall issues with a chronic wound came to the emergency department with the complaint of generalized weakness and not feeling well. Patient also complains of chest pain which is ongoing problems more left and right both side. Patient have a cardiac cath was done 2 years back and was stable and patient also see her Dr. Persaud for his coronary artery disease and A. fib. Patient also noticed that her Coumadin level is very up and down since last several months and so many dose was changed her Dr. gonzalez office In the ER workup patient's EKG and a cardiac enzyme was all stable and patient' s potassium was low and possible urinary tract infections Patient was given IV Rocephin 1 g and replace the potassiums Patient's currently denied any chest pain denied any shortness of breath. Patient INR is 3.47 Hospital Course Hospital Course: This is a 71-year-old female with the morning comorbidity presents in the emergency department of the generalized weakness and the chest pain and patient initial workup was all stable except patient was hypokalemic and the patient's had uti. Patient will start on IV Rocephin replace potassium Patient is doing very well in physical therapy was also ordered Since walk with the walker without any problems pain the patient's all culture sensitivity back insensate with the Rocephin and patient was put on Keflex on discharge Patient's blood pressure was running in the lower site and we'll hold the hydrochlorothiazide and benazepril discharge Patient seen by Dr. Gama and suggest a noncardiac chest pain Patient also see Dr. PERSAUD for the Coumadin and discuss with pain follow out patient's adjust the dose Discussed with the patient about the physical therapy and home health Physical Exam Vital Signs: Temp Pulse Resp BP Pulse Ox 98.4 F 90 19 100/45 L 98 12/20/16 23:12 12/21/16 02:00 12/20/16 23:12 12/20/16 23:12 12/20/16 23:12 Intake & Output 12/20/16 12/21/16 12/22/16 06:59 06:59 06:59 Intake Total 1150 1530 Output Total 600 Balance 1150 930 Weight 91.8 kg General appearance: PRESENT: no acute distress, well-developed, well-nourished Head exam: PRESENT: atraumatic, normocephalic Eye exam: PRESENT: conjunctiva pink, EOMI, PERRLA. ABSENT: scleral icterus Ear exam: PRESENT: normal external ear exam Mouth exam: PRESENT: moist, tongue midline Neck exam: PRESENT: full ROM. ABSENT: carotid bruit, JVD, lymphadenopathy, thyromegaly Respiratory exam: PRESENT: clear to auscultation michele Cardiovascular exam: PRESENT: RRR. ABSENT: diastolic murmur, rubs, systolic murmur Pulses: PRESENT: normal dorsalis pedis pul, +2 pedal pulses bilateral Vascular exam: PRESENT: normal capillary refill GI/Abdominal exam: PRESENT: normal bowel sounds, soft. ABSENT: distended, guarding, mass, organolmegaly, rebound, tenderness Rectal exam: PRESENT: deferred Neurological exam: PRESENT: alert, awake, oriented to person, oriented to place , oriented to time, oriented to situation, CN II-XII grossly intact. ABSENT: motor sensory deficit Psychiatric exam: PRESENT: appropriate affect, normal mood. ABSENT: homicidal ideation, suicidal ideation Skin exam: PRESENT: dry, intact, warm. ABSENT: cyanosis, rash Results Laboratory Results: 12/19/16 06:10 12/21/16 06:05 12/21/16 06:05 Sodium 144.2 Potassium 3.6 Chloride 107 Carbon Dioxide 26 Anion Gap 11 BUN 15 Creatinine 0.97 Est GFR ( Amer) > 60 Est GFR (Non-Af Amer) 57 L Glucose 143 H Calcium 8.6 12/18/16 12/18/16 12/18/16 09:30 09:30 16:00 Creatine Kinase 91 66 CK-MB (CK-2) 1.32 Troponin I < 0.012 12/18/16 12/18/16 12/18/16 16:00 22:51 22:51 Creatine Kinase 56 CK-MB (CK-2) 0.74 0.57 Troponin I < 0.012 < 0.012 Impressions: Chest X-Ray 12/17/16 21:40 IMPRESSION: HEART ENLARGED WITHOUT FAILURE. NO OTHER SIGNIFICANT RADIOGRAPHIC FINDING IN THE CHEST. Head CT 12/18/16 00:00 IMPRESSION: NO ACUTE INTRACRANIAL PROCESS. NO SIGNIFICANT CHANGE FROM PRIOR STUDY. Plan Time Spent: Less than 30 Minutes - Discussed with the patient about the or the CT report and ordered other tests reports and the patient is feeling much better. Patient's cleared by Dr. Gama and patient's walk with the walker and doing much better Patient's desire to go home and was discharged home with the home health Discuss about changing the medications
[2016-12-21 08:15] VITALS: BP 107/51
[2016-12-21] MEDS: LUBIPROSTONE 24 MCG CAPSULE PO SCH (09:58)
[2016-12-21] MEDS: SITAGLIPTIN PHOSPHATE 50 MG TABLET PO SCH (09:58)
[2016-12-21] MEDS: LEVOTHYROXINE SODIUM 0.025 MG TABLET PO SCH (09:58)
[2016-12-21] MEDS: FLUTICASONE NASAL SPRAY 50 MCG/SPRY 120 SPRAY/16 GM NASL SCH (09:59)
[2016-12-21] MEDS: ATORVASTATIN CALCIUM 10 MG TABLET PO SCH (09:59)
[2016-12-21] MEDS: LEVOTHYROXINE SODIUM 0.1 MG TABLET PO SCH (09:59)
[2016-12-21] MEDS: DULOXETINE HCL 30 MG CAPSULE.DR PO SCH (09:59)
[2016-12-21] MEDS: TIOTROPIUM BROMIDE DPI 5 CAP/KIT (18 MCG/CAP) IH SCH (10:04)
[2016-12-21] MEDS: BENAZEPRIL HCL 10 MG TABLET PO SCH (10:04)
[2016-12-21] MEDS: METOPROLOL SUCCINATE 25 MG TAB.SR.24H PO SCH (10:04)
[2016-12-21] MEDS: FUROSEMIDE 20 MG TABLET PO SCH (10:04)
== END 2016-12-21 14:08 | disposition home health service (06) ==
LOC: ER 21:22 → EH 12-18 03:22 → UNDOADMIN 12-18 03:22 → 5 12-18 05:30 → EH 12-18 05:30 → 5 12-18 05:33 → INTOOBSV 12-18 05:33 → EH 12-18 05:33
PROVIDERS: ADMIT Family Medicine; ATTEND Family Medicine
DX: R07.89 Other chest pain (principal); N39.0 Urinary tract infection, site not specified; I25.10 Atherosclerotic heart disease of native coronary artery without angina pectoris; E78.5 Hyperlipidemia, unspecified; G47.30 Sleep apnea, unspecified; R53.1 Weakness; I48.2 Chronic atrial fibrillation; E87.6 Hypokalemia; I48.91 Unspecified atrial fibrillation; J44.9 Chronic obstructive pulmonary disease, unspecified; E11.22 Type 2 diabetes mellitus with diabetic chronic kidney disease; N18.9 Chronic kidney disease, unspecified; M79.7 Fibromyalgia; I15.9 Secondary hypertension, unspecified; F32.89 Other specified depressive episodes; I69.398 Other sequelae of cerebral infarction; I50.9 Heart failure, unspecified; Z79.899 Other long term (current) drug therapy; Z79.51 Long term (current) use of inhaled steroids; Z79.891 Long term (current) use of opiate analgesic; Z79.01 Long term (current) use of anticoagulants; Z85.41 Personal history of malignant neoplasm of cervix uteri; Z89.422 Acquired absence of other left toe(s); Z87.891 Personal history of nicotine dependence
CPT/HCPCS: 93005; 99285; 96365; 36415 ×4; 87086; 82553; 82962 ×4; 82550 ×2; 83735; 84443; 85025 ×2; 85610 ×4; 87088; 80048 ×3; 80053; 81001; 84484; 87186; 71010; 70450; 93010; 97162; G0378 ×4; A9270 ×39; J3490 ×4; J7030; J0696 ×3; G8978; G8979; J1815

== ENCOUNTER → 2016-12-31 | Outpatient (CLI) | payer MEDICARE, OTHER ==
[2016-12-31 13:14] LABS: PROTHROMBIN TIME 31.9 SEC (11.4-15.4)
== END ==
LOC: OD 12:04
PROVIDERS: ATTEND Specialist
DX: I48.0 Paroxysmal atrial fibrillation (principal); Z79.01 Long term (current) use of anticoagulants
CPT/HCPCS: 36415; 85610

== ENCOUNTER → 2017-01-12 | Outpatient (CLI) | payer MEDICARE, OTHER ==
[2017-01-12 16:55] LABS: ALANINE AMINOTRANSFERASE 17 U/L (9-52); ALBUMIN 3.7 g/dL (3.5-5.0); ALKALINE PHOSPHATASE 77 U/L (38-126); ANION GAP 10 (5-19); ASPARTATE AMINO TRANSFERASE 25 U/L (14-36); BILIRUBIN,DIRECT 0.5 mg/dL (0.0-0.4); BILIRUBIN,TOTAL 0.6 mg/dL (0.2-1.3); BLOOD UREA NITROGEN 14 mg/dL (7-20); CALCIUM 9.4 mg/dL (8.4-10.2); CARBON DIOXIDE 29 mmol/L (22-30); CHLORIDE 104 mmol/L (98-107); CREATININE RESULT 1.07 mg/dL (0.52-1.25); GLUCOSE 92 mg/dL (75-110); POTASSIUM 4.3 mmol/L (3.6-5.0); SODIUM 142.9 mmol/L (137-145); TOTAL PROTEIN 7.9 g/dL (6.3-8.2)
[2017-01-12 16:58] LABS: PROTHROMBIN TIME 29.4 SEC (11.4-15.4)
== END ==
LOC: OD 15:00
PROVIDERS: ATTEND Internal Medicine
DX: I25.118 Atherosclerotic heart disease of native coronary artery with other forms of angina pectoris (principal); I10 Essential (primary) hypertension; I35.0 Nonrheumatic aortic (valve) stenosis; I48.0 Paroxysmal atrial fibrillation; Z79.01 Long term (current) use of anticoagulants; E11.9 Type 2 diabetes mellitus without complications; G45.9 Transient cerebral ischemic attack, unspecified; R07.2 Precordial pain; Z79.899 Other long term (current) drug therapy
CPT/HCPCS: 36415; 80053; 85610

== ENCOUNTER → 2017-01-28 | Outpatient (CLI) | payer MEDICARE, OTHER ==
[2017-01-28 12:49] LABS: PROTHROMBIN TIME 30.6 SEC (11.4-15.4)
== END ==
LOC: OD 12:00
PROVIDERS: ATTEND Specialist
DX: I48.0 Paroxysmal atrial fibrillation (principal); Z79.01 Long term (current) use of anticoagulants
CPT/HCPCS: 36415; 85610

== ENCOUNTER → 2017-03-02 | Outpatient (CLI) | payer MEDICARE, OTHER ==
[2017-03-02 13:43] LABS: PROTHROMBIN TIME 30.2 SEC (11.4-15.4)
[2017-03-02 14:04] LABS: CHOLESTEROL 215.24 mg/dL (0-200); Direct HDL 57 mg/dL (>40); TRIGLYCERIDES 126 mg/dL (<150)
[2017-03-02 14:18] LABS: DIRECT LDL 116 mg/dL (<100)
== END ==
LOC: OD 12:17
PROVIDERS: ATTEND Internal Medicine
DX: Z79.01 Long term (current) use of anticoagulants (principal); I48.0 Paroxysmal atrial fibrillation; E11.9 Type 2 diabetes mellitus without complications; E78.4 Other hyperlipidemia; I35.0 Nonrheumatic aortic (valve) stenosis; I10 Essential (primary) hypertension; R07.2 Precordial pain; E78.5 Hyperlipidemia, unspecified; Z86.73 Personal history of transient ischemic attack (TIA), and cerebral infarction without residual deficits
CPT/HCPCS: 36415; 80061; 85610

== ENCOUNTER → 2017-03-25 | Outpatient (CLI) | payer MEDICARE, OTHER ==
[2017-03-25 18:39] LABS: PROTHROMBIN TIME 16.3 SEC (11.4-15.4)
[2017-03-25 18:40] LABS: PARTIAL THROMBOPLASTIN TIME 37.9 SEC (23.5-35.8)
== END ==
LOC: OD 17:47
PROVIDERS: ATTEND Physician Assistant
DX: Z79.01 Long term (current) use of anticoagulants (principal)
CPT/HCPCS: 85610; 85730

== ENCOUNTER → 2017-03-29 | Outpatient (CLI) | payer MEDICARE, OTHER ==
[2017-03-29 10:50] LABS: PARTIAL THROMBOPLASTIN TIME 33.4 SEC (23.5-35.8); PROTHROMBIN TIME 15.6 SEC (11.4-15.4)
== END ==
LOC: OD 09:43
PROVIDERS: ATTEND Student in an Organized Health Care Education/Training Program
DX: Z51.81 Encounter for therapeutic drug level monitoring (principal); Z79.01 Long term (current) use of anticoagulants
CPT/HCPCS: 36415; 85610; 85730

== ENCOUNTER → 2017-04-06 | Outpatient (CLI) | payer MEDICARE, OTHER ==
--- NOTE | 2017-04-06 14:02 | RADIOLOGY REPORT (SQ) ---
EXAM DESCRIPTION: U/S ABDOMEN LIMITED W/O DOP COMPLETED DATE/TIME: 04/06/2017 1:27 pm REASON FOR STUDY: LOCALIZED SWELLING, MASS AND LUMP, TRUNK COMPARISON: None. TECHNIQUE: Sonographic images of the soft tissues of the abdominal wall. LIMITATIONS: None. FINDINGS: Complex fluid collection in the soft tissues measuring 1.8 x 3.3 x 3 3.3 cm. IMPRESSION: COMPLEX FLUID COLLECTION IN THE SOFT TISSUES OF THE ABDOMINAL WALL. THIS CORRESPONDS WI TH A KNOWN HEMATOMA. COMMENT: The patient was scheduled for ultrasound-guided aspiration but is currently taking aspirin and Coumadin which were not discontinued. The patient will be rescheduled after the medications have been withheld for an appropriate time. TECHNICAL DOCUMENTATION: JOB ID: [id number] [employer]- All Rights Reserved
== END ==
LOC: RAD 09:23 → EDSTATUS 14:07
PROVIDERS: ATTEND Surgery
DX: R22.2 Localized swelling, mass and lump, trunk (principal)
CPT/HCPCS: 76705

== ENCOUNTER → 2017-04-12 | Day surgery (SDC) | payer MEDICARE, OTHER ==
--- NOTE | 2017-04-12 12:44 | RADIOLOGY REPORT (SQ) ---
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 TECHNIQUE: CT scan of the abdomen performed without intravenous contrast and without oral contrast. Images reviewed with lung, soft tissue, and bone windows. Reconstructed coronal and sagittal MPR im ages reviewed. All images stored on PACS. All CT scanners at this facility use dose modulation, iterative reconstruction, and/or weight based d osing when appropriate to reduce radiation dose to as low as reasonably achievable (ALARA). [facility]: Dose Right [facility]: CareDose [facility]: Dose Right [facility]: Teradose 4D [facility]: Smart [employer] RADIATION DOSE: Up-to-date CT equipment and radiation dose reduction techniques were employed. CTDIv ol: 17.3 mGy. DLP: 543 mGy-cm.mGy. LIMITATIONS: None. FINDINGS: LOWER CHEST: No significant findings. Calcified granuloma in the left lung. No nodules o r infiltrates. NONCONTRASTED LIVER, SPLEEN, ADRENALS: Evaluation limited by lack of IV contrast. No identified sign ificant masses. PANCREAS: No masses. No peripancreatic inflammatory changes. GALLBLADDER: Gallstones. No inflammatory changes to suggest cholecystitis. RIGHT KIDNEY AND URETER: No suspicious masses. Assessment limited by lack of IV contrast. No signif icant calcifications. No hydronephrosis or hydroureter. LEFT KIDNEY AND URETER: No suspicious masses. Assessment limited by lack of IV contrast. No signifi cant calcifications. No hydronephrosis or hydroureter. AORTA AND RETROPERITONEUM: No aneurysm. No retroperitoneal masses or adenopathy. BOWEL AND PERITONEAL CAVITY: No obvious masses or inflammatory changes. No free fluid. APPENDIX: Not visualized. ABDOMINAL WALL: Surgical changes in the anterior abdominal wall. Again seen is increased irregular d ensity in the abdominal wall mesh as well is in the anterior subcutaneous tissues. No discrete fluid collections to be amenable to percutaneous drainage. BONES: No significant findings. OTHER: No other significant finding. IMPRESSION: 1. SURGICAL CHANGES IN THE ANTERIOR ABDOMINAL WALL. IRREGULAR INCREASED DENSITY SECONDARY TO CHRONIC HEMATOMA WITH NO DISCRETE FLUID COLLECTION AMENABLE TO PERCUTANEOUS DRAINAGE. 2. GALLSTONES. 3. NO OTHER SIGNIFICANT OR ACUTE ABDOMINAL PROCESS. TECHNICAL DOCUMENTATION: JOB ID: [id number] Quality ID # [id number]: Final reports with documentation of one or more dose reduction techniques (e.g., Au tomated exposure control, adjustment of the mA and/or kV according to patient size, use of iterative reconstruction technique) 2010 [employer]- All Rights Reserved
--- NOTE | 2017-04-12 14:24 | RADIOLOGY REPORT (SQ) ---
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 LIMITATIONS: none PROCEDURE: The procedure was explained to the patient. Possible complications include bleeding and infection. The patient asked that we proceed with the procedure. Initial ultrasound scanning demonstrated a large predominantly hypoechoic and anechoic fluid collecti on in the subcutaneous tissues of the anterior abdominal wall. This contains scattered internal echo es. Using appropriate sterile technique and lidocaine as local anesthesia, the aspiration needle was adva nced into the apparent fluid collection. Numerous attempts at aspiration were unsuccessful. Only a few mL of thin bloody fluid could be aspirated. The needle was positioned in multiple areas, confirm ed on sonography to be within what appears to be fluid collection, but no fluid could be aspirated. IMPRESSION: Unable to aspirate fluid from the hypoechoic area in the anterior abdominal wall. This suggests that this is a large hematoma containing thick internal clot without sufficient liquefaction for successful aspiration. COMMENT: Patient medication list reviewed:Yes- Quality ID# [id number]:Eligible professional attests to docu menting in the medical record they obtained, updated, or reviewed the patient's current medications. TECHNICAL DOCUMENTATION: JOB ID: [id number] [employer]- All Rights Reserved
== END ==
LOC: EDSTATUS 10:30 → RAD 10:35
PROVIDERS: ATTEND Surgery
DX: R22.2 Localized swelling, mass and lump, trunk (principal); C53.9 Malignant neoplasm of cervix uteri, unspecified; L02.211 Cutaneous abscess of abdominal wall
CPT/HCPCS: 10022; 74150

== ENCOUNTER → 2017-04-27 | Outpatient (CLI) | payer MEDICARE, OTHER ==
[2017-04-27 16:20] LABS: PROTHROMBIN TIME 19.8 SEC (11.4-15.4)
== END ==
LOC: OD 15:25
PROVIDERS: ATTEND Specialist
DX: I48.0 Paroxysmal atrial fibrillation (principal); Z79.01 Long term (current) use of anticoagulants
CPT/HCPCS: 36415; 85610

== ENCOUNTER → 2017-04-27 | Outpatient (CLI) | payer MEDICARE, OTHER ==
--- NOTE | 2017-04-28 22:00 | WOMENS IMAGING REPORT ---
EXAM DESCRIPTION: 3D SCREENING MAMMO BILAT COMPLETED DATE/TIME: 04/27/2017 3:15 pm REASON FOR STUDY: ROUTINE SCREENING; Z12.31 COMPARISON: Multiple since 2008 TECHNIQUE: Standard craniocaudal and mediolateral oblique views of each breast recorded using digita l acquisition and breast tomosynthesis. LIMITATIONS: None. FINDINGS: Findings present which are benign by mammographic criteria. No suspicious masses, calcifi cations or architectural distortion. Pertinent benign findings: Stable benign calcifications bilaterally Read with the assistance of CAD. .[facility] - R2 Cenova Version 1.3 .[facility] - R2 Cenova Version 1.3 .[facility] - R2 Cenova Version 2.4 .[facility] - R2 Cenova Version 2.4 .[facility] - R2 Bro[employer] Version 9.2 Benign mammographic findings may include one or more of the following: Smooth masses, popcorn/rim/co arse calcifications, asymmetries, post-procedure changes, and lesions with long-standing stability. IMPRESSION: BENIGN MAMMOGRAPHIC FINDINGS. BIRADS 2 BREAST DENSITY: b. There are scattered areas of fibroglandular density. BIRAD: 2 BENIGN FINDING(S) RECOMMENDATION: RECOMMENDATION: ROUTINE SCREENING Please continue yearly bilateral screening tomosynthesis in April 2018 COMMENT: The patient has been notified of the results by letter per SA requirements. Additional no tification policies are in place for contacting patient with suspicious or incomplete findings. Quality ID #[id number]: The [employer] recommends an annual screening mammogram for women aged 40 years or over. This facility utilizes a reminder system to ensure that all patients receive reminder letters, and/or direct phone calls for appointments. This includes reminders for routine scr eening mammograms, diagnostic mammograms, or other Breast Imaging Interventions when appropriate. Th is patient will be placed in the appropriate reminder system. The [employer] (ACR) has developed recommendations for screening MRI of the breast s in certain patient populations, to be used in conjunction with mammography. Breast MRI surveillanc e may be appropriate for women with more than 20% lifetime risk of developing breast cancer as deter mined by genetic testing, significant family history of the disease, or history of mantle radiation f or Hodgkins Disease. ACR Practice Guidelines 2008. DBT Technology DBT is a type of tomographic mammography. With conventional mammography, overlapping breast tissue ma y make lesions difficult to detect, even with good compression. DBT uses an x-ray tube that rotates a round the breast, taking images at different angles. These images are then combined to create thin sl ices of the breast that the radiologist can view as a 3D reconstruction. The Hologic unit can perform full-field digital mammograms (2D imaging); or DBT (3D imaging); or both, in a combination mode that quickly performs both the mammogram and the tomosynthesis scan while the breast is still compressed. PQRS 6045F: Fluoroscopic imaging is not utilized for breast tomosynthesis. TECHNICAL DOCUMENTATION: FINDING NUMBER: (1) ASSESSMENT: (1) JOB ID: [id number] [employer]- All Rights Reserved
== END ==
LOC: WI 14:49
PROVIDERS: ATTEND Family Medicine
DX: Z12.31 Encounter for screening mammogram for malignant neoplasm of breast (principal)
CPT/HCPCS: 77063; G0202; 77067

== ENCOUNTER → 2017-05-12 | Outpatient (CLI) | payer MEDICARE, OTHER | LOC: OD 15:45 | PROVIDERS: ATTEND Specialist | DX: I48.0 Paroxysmal atrial fibrillation (principal); Z79.01 Long term (current) use of anticoagulants | CPT/HCPCS: 36415; 85610 ==

== ENCOUNTER 2017-05-13 19:04 | Inpatient (IN) | payer MEDICARE, OTHER ==
--- NOTE | 2017-05-13 20:30 | ER Document Report ---
ED Medical Screen (RME) - General Chief Complaint: Abdominal Swelling Stated Complaint: ABDOMINAL WALL PAIN Time Seen by Provider: 05/13/17 20:28 Notes: Patient states she has had multiple abdominal surgeries secondary to ventral wall hernias and bowel obstructions. She states that they have been complicated by seromas. She states roughly 4 days ago, on Wednesday, she noticed that her abdomen began swelling. It is now painful and red. She states she has been nauseous but not vomited. She has had bowel movements. She states she has had decreased appetite. But no fevers. TRAVEL OUTSIDE OF THE [place] IN LAST 30 DAYS: No - Related Data Allergies/Adverse Reactions: captopril [Captopril] Allergy (Severe, Verified 09/26/16 12:23) cough thimerosal [From Merthiolate] Allergy (Severe, Verified 09/26/16 12:23) severe rash Past Medical History - Past Medical History Cardiac Medical History: Reports: Hx Atrial Fibrillation - A flutter, Hx Congestive Heart Failure, Hx Hypercholesterolemia, Hx Heart Murmur - req SBE prophylaxis Denies: Hx Coronary Artery Disease, Hx Heart Attack, Hx Hypertension Pulmonary Medical History: Reports: Hx Asthma - COPD, Hx Bronchitis, Hx COPD, Hx Sleep Apnea Denies: Hx Pneumonia, Hx Tuberculosis Neurological Medical History: Denies: Hx Cerebrovascular Accident - QUESTIONABLE FOR STROKE, NEG CT SCAN 2009, Hx Seizures Endocrine Medical History: Reports: Hx Diabetes Mellitus Type 1, Hx Diabetes Mellitus Type 2 Renal/ Medical History: Denies: Hx Peritoneal Dialysis Malignancy Medical History: Reports: Hx Cervical Cancer GI Medical History: Reports: Hx Hiatal Hernia. Denies: Hx Hepatitis, Hx Ulcer Musculoskeltal Medical History: Reports Hx Arthritis, Reports Hx Muscle Weakness - L. upper Skin Medical History: Reports Hx Cellulitis - (neck and shoulder) Psychiatric Medical History: Reports: Hx Depression Infectious Medical History: Denies: Hx Hepatitis Past Surgical History: Reports: Hx Abdominal Surgery - hernia, bowel obstruction , Hx Bowel Surgery, Hx Breast Surgery, Hx Cardiac Catheterization, Hx Gynecologic Surgery - D&C, Hx Herniorrhaphy, Hx Hysterectomy, Hx Open Heart Surgery - CATHS, ABLATION, Hx Oral Surgery, Hx Orthopedic Surgery - R knee, R toe,R knee, Hx Tonsillectomy, Hx Tubal Ligation. Denies: Hx Mastectomy, Hx Pacemaker - Immunizations Hx Diphtheria, Pertussis, Tetanus Vaccination: Yes Physical Exam - Vital signs Vitals: Temp Pulse Resp BP Pulse Ox 99.7 F 77 20 127/53 H 96 05/13/17 19:58 05/13/17 19:58 05/13/17 19:58 05/13/17 19:58 05/13/17 19:58 Course - Vital Signs Vital signs: Temp Pulse Resp BP Pulse Ox 99.7 F 77 20 127/53 H 96 05/13/17 19:58 05/13/17 19:58 05/13/17 19:58 05/13/17 19:58 05/13/17 19:58
[2017-05-13 21:16] LABS: ABSOLUTE EOSINOPHILS # (AUTO) 0.2 10^3/uL (0.0-0.6); ABSOLUTE LYMPHOCYTES (AUTO) 1.3 10^3/uL (0.5-4.7); ABSOLUTE MONOCYTES (AUTO) 0.5 10^3/uL (0.1-1.4); ABSOLUTE NEUT (AUTO) 4.7 10^3/uL (1.7-8.2); BASOPHILS % (AUTO) 0.6 % (0-2); EOSINOPHILS % (AUTO) 2.8 % (0-6); HEMATOCRIT 32.5 % (36.0-47.0); HEMOGLOBIN 10.6 g/dL (12.0-15.5); HGB HCT DIFFERENCE -0.7; LYMPHOCYTES % (AUTO) 19.3 % (13-45); MEAN CORPUSCULAR HEMOGLOBIN 28.4 pg (27.0-33.4); MEAN CORPUSCULAR HGB CONC 32.5 g/dL (32.0-36.0); MEAN CORPUSCULAR VOLUME 87 fl (80-97); MONOCYTES % (AUTO) 7.7 % (3-13); RED BLOOD COUNT 3.73 10^6/uL (3.72-5.28); RED CELL DISTRIBUTION WIDTH 15.9 % (11.5-14.0); SEGMENTED NEUTROPHILS % (AUTO) 69.6 % (42-78); WHITE BLOOD COUNT 6.8 10^3/uL (4.0-10.5)
[2017-05-13 21:37] LABS: ALANINE AMINOTRANSFERASE 27 U/L (9-52); ALBUMIN 3.9 g/dL (3.5-5.0); ALKALINE PHOSPHATASE 78 U/L (38-126); ANION GAP 12 (5-19); ASPARTATE AMINO TRANSFERASE 18 U/L (14-36); BILIRUBIN,DIRECT 0.5 mg/dL (0.0-0.4); BILIRUBIN,TOTAL 0.6 mg/dL (0.2-1.3); BLOOD UREA NITROGEN 16 mg/dL (7-20); CALCIUM 9.5 mg/dL (8.4-10.2); CARBON DIOXIDE 27 mmol/L (22-30); CHLORIDE 100 mmol/L (98-107); CREATININE RESULT 1.02 mg/dL (0.52-1.25); GLUCOSE 116 mg/dL (75-110); POTASSIUM 3.9 mmol/L (3.6-5.0); SODIUM 139.1 mmol/L (137-145); TOTAL PROTEIN 7.5 g/dL (6.3-8.2)
[2017-05-13 21:41] LABS: APPEARANCE,URINE CLOUDY; BILIRUBIN,URINE NEGATIVE (NEGATIVE); GLUCOSE, URINE NEGATIVE (NEGATIVE); KETONES,URINE NEGATIVE (NEGATIVE); LEUKOCYTE ESTERASE,URINE NEGATIVE (NEGATIVE); NITRITE,URINE NEGATIVE (NEGATIVE); PROTEIN,URINE NEGATIVE (NEGATIVE); URINE SPECIFIC GRAVITY 1.013; UROBILINOGEN,URINE NEGATIVE mg/dL (<2.0)
--- NOTE | 2017-05-13 22:45 | RADIOLOGY REPORT (SQ) ---
"EXAM DESCRIPTION: CT ABD/PELVIS WITH IV ONLY COMPLETED DATE/TIME: 05/13/2017 10:30 pm REASON FOR STUDY: Hx SBO, tender red swelling suprapubic area COMPARISON: 04/12/2017. TECHNIQUE: CT scan of the abdomen and pelvis performed using helical scanning technique with dynamic intravenous contrast injection. No oral contrast. Images reviewed with lung, soft tissue, and bone windows. Reconstructed coronal and sagittal MPR images reviewed. Delayed images for evaluation of the urinary system also acquired. All images stored on PACS. All CT scanners at this facility use dose modulation, iterative reconstruction, and/or weight based d osing when appropriate to reduce radiation dose to as low as reasonably achievable (ALARA). [facility]: Dose Right [facility]: CareDose [facility]: Dose Right [facility]: Teradose 4D [facility]: [employer] | [employer]pay CONTRAST TYPE AND DOSE: contrast/concentration: Isovue 370.00 mg/ml; Total Contrast Delivered: 100.0 ml; Total Saline Delivered: 40.0 ml RENAL FUNCTION: BUN 16 creatinine 1.02. RADIATION DOSE: Up-to-date CT equipment and radiation dose reduction techniques were employed. CTDIv ol: 19.1 - 20.0 mGy. DLP: 1872 mGy-cm.. LIMITATIONS: None. FINDINGS: LOWER CHEST: No significant findings. No nodules or infiltrates. LIVER: Normal size. No masses. No dilated ducts. SPLEEN: Normal size. No focal lesions. PANCREAS: No masses. No significant calcifications. No adjacent inflammation or peripancreatic fluid collections. Pancreatic duct not dilated. GALLBLADDER: Gallstones. No inflammatory changes to suggest cholecystitis. ADRENAL GLANDS: No significant masses or asymmetry. RIGHT KIDNEY AND URETER: No solid masses. No significant calcifications. No hydronephrosis or hyd roureter. LEFT KIDNEY AND URETER: No solid masses. No significant calcifications. No hydronephrosis or hydr oureter. AORTA AND VESSELS: No aneurysm. No dissection. Renal arteries, SMA, celiac without stenosis. RETROPERITONEUM: No retroperitoneal adenopathy, hemorrhage or masses. BOWEL AND PERITONEAL CAVITY: No masses or inflammatory changes. No free fluid or peritoneal masses. APPENDIX: Surgically absent. PELVIS: No mass. No free fluid. Normal bladder. ABDOMINAL WALL: Mesh in the anterior abdominal wall. Chronic inflammatory changes. Developing fluid collection in the subcutaneous tissues external to the mesh, measuring 1-2 cm in thickness. BONES: No significant or acute findings. OTHER: No other significant finding. IMPRESSION: 1. MESH IN THE ANTERIOR ABDOMINAL WALL WITH CHRONIC INFLAMMATORY CHANGES. DEVELOPING FLUID COLLECTIO N IN THE SUBCUTANEOUS TISSUES EXTERNAL TO THE MESH, POSSIBLY DEVELOPING ABSCESS. 2. GALLSTONES. 3. NO OTHER SIGNIFICANT OR ACUTE FINDING IN THE ABDOMEN OR PELVIS ON CT SCAN WITH IV CONTRAST. TECHNICAL DOCUMENTATION: JOB ID: [id number] Quality ID # [id number]: Final reports with documentation of one or more dose reduction techniques (e.g., Au tomated exposure control, adjustment of the mA and/or kV according to patient size, use of iterative reconstruction technique) 2010 [employer]- All Rights Reserved"
--- NOTE | 2017-05-13 23:36 | ER Document Report ---
ED GI/ - General TRAVEL OUTSIDE OF THE [place]. IN LAST 30 DAYS: No <ИВАН BUCK - Last Filed: 05/13/17 23:30> <ANDREI TURNER - Last Filed: 05/14/17 01:50> - General Chief Complaint: Abdominal Swelling Stated Complaint: ABDOMINAL WALL PAIN Time Seen by Provider: 05/13/17 20:28 Notes: Patient is complaining of pain in the lower mid abdomen, suprapubic region that began Wednesday. Also began developing redness in this area on Wednesday as well. Patient is concerned she may have a bowel obstruction and she has had several of them in the past. She has had ventral wall hernias that were repaired and mesh was inserted. Her most recent surgery was in the year 2009. She has had 4 surgeries with 3 of them including insertion of the mesh. Her history is also complicated by the fact that she has had the development of the seromas several times. Patient has had a lot of problems with her abdominal wall and pain since she fell back in the spring and landed on her arm between her body and the ground. She ended up with a hematoma at one time. She thinks she has been running a low-grade fever. Her appetite has been decreased. Past medical history: Appendectomy, hysterectomy, bowel obstruction and hernia repair. She has gallstones but is not had her gallbladder removed. (ИВАН BUCK) - Related Data Allergies/Adverse Reactions: captopril [Captopril] Allergy (Severe, Verified 09/26/16 12:23) cough thimerosal [From Merthiolate] Allergy (Severe, Verified 09/26/16 12:23) severe rash Past Medical History - Social History Smoking Status: Never Smoker Chew tobacco use (# tins/day): No Frequency of alcohol use: None Drug Abuse: None Family History: Reviewed & Not Pertinent, Other Patient has suicidal ideation: No Patient has homicidal ideation: No - Past Medical History Cardiac Medical History: Reports: Hx Atrial Fibrillation - A flutter, Hx Congestive Heart Failure, Hx Hypercholesterolemia, Hx Heart Murmur - req SBE prophylaxis Pulmonary Medical History: Reports: Hx Asthma - COPD, Hx Bronchitis, Hx COPD, Hx Sleep Apnea Endocrine Medical History: Reports: Hx Diabetes Mellitus Type 1, Hx Diabetes Mellitus Type 2 Malignancy Medical History: Reports: Hx Cervical Cancer GI Medical History: Reports: Hx Hiatal Hernia Musculoskeltal Medical History: Reports Hx Arthritis, Reports Hx Muscle Weakness - L. upper Skin Medical History: Reports Hx Cellulitis - (neck and shoulder) Psychiatric Medical History: Reports: Hx Depression Infectious Medical History: Denies: Hx Hepatitis Past Surgical History: Reports: Hx Abdominal Surgery - hernia, bowel obstruction , Hx Bowel Surgery, Hx Breast Surgery, Hx Cardiac Catheterization, Hx Gynecologic Surgery - D&C, Hx Herniorrhaphy, Hx Hysterectomy, Hx Open Heart Surgery - CATHS, ABLATION, Hx Oral Surgery, Hx Orthopedic Surgery - R knee, R toe,R knee, Hx Tonsillectomy, Hx Tubal Ligation - Immunizations Hx Diphtheria, Pertussis, Tetanus Vaccination: Yes Hx Pneumococcal Vaccination: 09/06/10 <ИВАН BUCK - Last Filed: 05/13/17 23:30> Review of Systems <ИВАН BUCK - Last Filed: 05/13/17 23:30> <ANDREI TURNER - Last Filed: 05/14/17 01:50> - Review of Systems Notes: REVIEW OF SYSTEMS: CONSTITUTIONAL : Think she may have had some fever. EENT: Denies eye, ear, nose or mouth or throat pain or other symptoms. CARDIOVASCULAR: Denies chest pain. RESPIRATORY: Denies cough, chest congestion, or shortness of breath. GASTROINTESTINAL: See HPI. GENITOURINARY: Denies difficulty or painful urinating, urinary frequency, blood in urine. MUSCULOSKELETAL: Denies back or neck pain. Denies joint pain or swelling. SKIN: Denies rash or skin lesions. NEUROLOGICAL: Denies LOC or altered mental status. Denies headache. Denies sensory loss or motor deficits. ALL OTHER SYSTEMS REVIEWED AND NEGATIVE. (ИВАН BUCK) Physical Exam - Vital signs Interpretation: Normal <ИВАН BUCK - Last Filed: 05/13/17 23:30> <ANDREI TURNER - Last Filed: 05/14/17 01:50> - Vital signs Vitals: Temp Pulse Resp BP Pulse Ox 99.7 F 77 20 127/53 H 96 05/13/17 19:58 05/13/17 19:58 05/13/17 19:58 05/13/17 19:58 05/13/17 19:58 - Notes Notes: PHYSICAL EXAMINATION: GENERAL: Well-appearing, in no acute distress. Vital signs are normal. HEAD: Atraumatic, normocephalic. ENT: oropharynx clear without exudates. Moist mucous membranes. NECK: Normal range of motion, supple. LUNGS: Breath sounds clear and equal bilaterally. HEART: Regular rate and rhythm without murmurs. ABDOMEN: Soft, nontender above the umbilicus. No guarding or rebound. In the lower portion of the abdomen, in the suprapubic region, there is soft tissue swelling with very firm hard tender erythematous enlargement covering the entire suprapubic region. I do not feel any actual fluctuance. BACK: No tenderness throughout entire back. EXTREMITIES: Normal range of motion without pain. NEUROLOGICAL: Normal speech, normal gait. Normal sensory, motor, and reflex exams. Awake, alert, and oriented x3. Cranial nerves normal. PSYCH: Normal mood, normal affect. SKIN: Warm, dry, no rashes. (ИВАН BUCK) Course - Laboratory Result Diagrams: 05/13/17 20:43 05/13/17 20:43 - Diagnostic Test Radiology reviewed: Image reviewed, Reports reviewed - CT scan shows developing fluid in the swollen area suggesting accumulating abscess. - EKG Interpretation by Fl EKG shows normal: Sinus rhythm Rate: Normal Rhythm: NSR <ИВАН BUCK - Last Filed: 05/13/17 23:30> - Laboratory Result Diagrams: 05/13/17 20:43 05/13/17 20:43 <ANDREI TURNER - Last Filed: 05/14/17 01:50> - Re-evaluation Re-evalutation: 05/13/17 23:[address] Sherman, surgeon refrigeration tech to evaluate the patient. (ИВАН BUCK) - Vital Signs Vital signs: Temp Pulse Resp BP Pulse Ox 99.7 F 77 20 127/53 H 96 05/13/17 19:58 05/13/17 19:58 05/13/17 19:58 05/13/17 19:58 05/13/17 19:58 - Laboratory Laboratory results interpreted by me: 05/13/17 05/13/17 05/13/17 20:43 20:43 20:43 Hgb 10.6 L Hct 32.5 L RDW 15.9 H Est GFR (Non-Af Amer) 54 L Glucose 116 H Direct Bilirubin 0.5 H Urine Blood SMALL H - EKG Interpretation by Me Additional EKG results interpreted by me: 05/13/17 23:[address] changes. (ИВАН BUCK) Discharge <ИВАН BUCK - Last Filed: 05/13/17 23:30> - Discharge Admitting Provider: Surgicalist Unit Admitted: [facility] <ANDREI TURNER - Last Filed: 05/14/17 01:50> - Discharge Clinical Impression: Abdominal wall abscess Condition: Stable Disposition: ADMITTED INPATIENT
[2017-05-14 02:06] LABS: PROTHROMBIN TIME 27.9 SEC (11.4-15.4)
[2017-05-14] MEDS ORDERED: ONDANSETRON HCL INJ/PF 4 MG/2 ML SDV IV PRN ×2 (02:51→17:57)
[2017-05-14] MEDS: CLINDAMYCIN 900 MG/D5W RTU 50 ML IV SCH ×4 (03:29→20:36)
[2017-05-14] MEDS: DEXTROSE 5%-NORMAL SALINE 1,000 ML IV PRN (03:30)
[2017-05-14] MEDS: MORPHINE SULFATE 10 MG/ML INJ IV PRN ×2 (04:38→20:34)
--- NOTE | 2017-05-14 07:58 | EKG REPORT ---
SEVERITY:- BORDERLINE ECG - SINUS RHYTHM BORDERLINE T ABNORMALITIES, ANTERIOR LEADS : Confirmed by: Srikanth Valencia MD 14-May-2017 07:57:35
--- NOTE | 2017-05-14 09:01 | PDOC PROGRESS REPORT ---
Subjective Progress Note for:: 05/14/17 Subjective:: Patient was admitted overnight for infection involving abdominal wall, specifically cellulitis possible subcutaneous abscess. 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 She has had multiple abdominal wall repairs with mesh. She was using BiPAP we entered the room Physical Exam Vital Signs: Temp Pulse Resp BP Pulse Ox 98.2 F 73 20 95/43 L 96 05/14/17 07:28 05/14/17 07:28 05/14/17 07:28 05/14/17 07:28 05/14/17 07:28 Intake & Output 05/13/17 05/14/17 05/15/17 06:59 06:59 06:59 Intake Total 250 Output Total 0 Balance 250 Weight 94.3 kg General appearance: PRESENT: no acute distress Cardiovascular exam: PRESENT: other - Multiple scars consistent with previous surgery. No open wounds. There is a large irregular geographic region of erythema and edema involving the anterior abdominal wall primarily to the right of the umbilicus. It is tender and appears hostile Results Impressions: Abdomen/Pelvis CT 05/13/17 21:30 IMPRESSION: 1. MESH IN THE ANTERIOR ABDOMINAL WALL WITH CHRONIC INFLAMMATORY CHANGES. DEVELOPING FLUID COLLECTION IN THE SUBCUTANEOUS TISSUES EXTERNAL TO THE MESH, POSSIBLY DEVELOPING ABSCESS. 2. GALLSTONES. 3. NO OTHER SIGNIFICANT OR ACUTE FINDING IN THE ABDOMEN OR PELVIS ON CT SCAN WITH IV CONTRAST. Assessment & Plan - Diagnosis (1) Abdominal wall abscess Is this a current diagnosis for this admission?: Yes Plan: Chronic persistent, but worsening abdominal wall infection based on clinical history. No evidence of sepsis clinically. CT scan findings consistent with increased inflammation compared to last month. Plan: 1. I reviewed the imaging studies with Dr. De Los Santos, radiologist. We feel that a limited, intraoperative abdominal wall drainage procedure would provide more control, and more effectiveness in terms of breaking up loculations, and directed drain placement. I do not believe this involves the peritoneal cavity. 2. Naturally patient has multiple comorbidities including a very strong cardiac history. Cardiology has been consulted. 3. We will continue to hold Coumadin; check coags this morning.
[2017-05-14] MEDS ORDERED: NORMAL SALINE 250 ML IV PRN ×2 (09:06)
[2017-05-14] MEDS ORDERED: LIDOCAINE 1% INJ-PF (10 MG/ML) 30 ML SDV ONE (09:30)
[2017-05-14 09:41] LABS: PROTHROMBIN TIME 28.2 SEC (11.4-15.4)
--- NOTE | 2017-05-14 11:08 | PDOC CONSULTATION ---
Consultation Consult Date: 05/14/17 Attending physician:: BRITTNEY SHABAZZ Consult reason:: Preop clearance History of Present Illness Admission Date/PCP: 05/14/17 03:16 Patient complains of: Abdominal discomfort History of Present Illness: LAM PETIT is a 71 year old female with complaints of pain in the lower mid abdomen, suprapubic region that began Wednesday. Also began developing redness in this area on Wednesday as well. Patient is concerned she may have a bowel obstruction and she has had several of them in the past. She has had ventral wall hernias that were repaired and mesh was inserted. Her most recent surgery was in the year 2009. She has had 4 surgeries with 3 of them including insertion of the mesh. Her history is also complicated by the fact that she has had the development of the seromas several times. Patient has had a lot of problems with her abdominal wall and pain since she fell back in the spring and landed on her arm between her body and the ground. She ended up with a hematoma at one time. She thinks she has been running a low-grade fever. Her appetite has been decreased. Patient was evaluated by surgeon today and she is in need for surgery. Patient did admit to having some chest pains over the weekend. She did have a stress test last year which was negative. Patient describes having multiple previous heart catheterization with last one approximately 8 years ago without any significant finding or stent placement. Patient also describes history of atrial fibrillation with ablation in the past. Currently she is on chronic anticoagulation with chronic Coumadin therapy. Past Medical History Cardiac Medical History: Reports: Atrial Fibrillation - A flutter, Congestive Heart Failure, Hyperlipidema, Heart Murmur - req SBE prophylaxis Denies: Coronary Artery Disease, Myocardial Infarction, Hypertension Pulmonary Medical History: Reports: Asthma - COPD, Bronchitis, Chronic Obstructive Pulmonary Disease (COPD), Sleep Apnea Denies: Pneumonia, Tuberculosis Neurological Medical History: Denies: Seizures Endocrine Medical History: Reports: Diabetes Mellitus Type 1, Diabetes Mellitus Type 2 Malignancy Medical History: Reports: Cervical Cancer GI Medical History: Reports: Hiatal Hernia Denies: Hepatitis Musculoskeltal Medical History: Reports: Arthritis Psychiatric Medical History: Reports: Depression Hematology: Reports: Anemia - hx of Denies: Hemophilia, Sickle Cell Disease Past Surgical History Past Surgical History: Reports: 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, Cardiac Catheterization, Herniorrhaphy, Hysterectomy, Orthopedic Surgery - R knee, R toe ,R knee, Tonsillectomy, Tubal Ligation, Other - Ablation for atrial fibrillation Denies: Mastectomy, Pacemaker Social History Information Source: Patient Smoking Status: Former Smoker Number of Years Smokin Last Time Smoked: 09/06/1991 Frequency of Alcohol Use: Rare Hx Recreational Drug Use: No Hx Prescription Drug Abuse: No - Advance Directive Resuscitation Status: Full Code Surrogate healthcare decision maker:: is the surrogate decision-maker Family History Family History: Hypertension, Other Parental Family History Reviewed: Yes Children Family History Reviewed: Yes Sibling(s) Family History Reviewed.: Yes Medication/Allergy Home Medications: Benazepril HCl [Lotensin 10 Mg Tablet] 10 mg PO DAILY 05/14/17 Cyclosporine [Restasis Droperette] 1 each OU Q12 05/14/17 Duloxetine HCl [Cymbalta] 60 mg PO DAILY 05/14/17 Escitalopram Oxalate [Lexapro] 5 mg PO QHS 05/14/17 Furosemide [Lasix 20 mg Tablet] 20 mg PO DAILY 05/14/17 Levothyroxine Sodium [Synthroid] 125 mcg PO QAM 05/14/17 Lubiprostone [Amitiza 24 Mcg Capsule] 24 mcg PO BID 05/14/17 Metoprolol Succinate [Toprol Xl 25 mg Tab.sr] 37.5 mg PO DAILY 05/14/17 Montelukast Sodium [Singulair 10 mg Tablet] 10 mg PO QPM 05/14/17 Oxycodone HCl/Acetaminophen [Percocet 5-325 mg Tablet] 1 tab PO BIDP PRN Potassium Chloride 20 meq PO DAILY 05/14/17 Sitagliptin Phosphate [Januvia] 100 mg PO DAILY 05/14/17 Trazodone HCl [Desyrel 50 mg Tablet] 25 mg PO HSP PRN 05/14/17 Warfarin Sodium [Coumadin] 5 mg PO QHS 05/14/17 Allergies/Adverse Reactions: captopril [Captopril] Allergy (Severe, Verified 09/26/16 12:23) cough thimerosal [From Merthiolate] Allergy (Severe, Verified 09/26/16 12:23) severe rash Physical Exam Vital Signs: Temp Pulse Resp BP Pulse Ox 98.2 F 73 20 95/43 L 96 05/14/17 07:28 05/14/17 07:28 05/14/17 07:28 05/14/17 07:28 05/14/17 07:28 Intake & Output 05/13/17 05/14/17 05/15/17 06:59 06:59 06:59 Intake Total 250 Output Total 0 Balance 250 Weight 94.3 kg Exam: GENERAL: well-nourished and in no acute distress. Alert and oriented x3 HEAD: Atraumatic, normocephalic. EYES: Pupils equal round and reactive to light, extraocular movements intact, sclera anicteric, conjunctiva are normal. ENT: TMs normal, nares patent, oropharynx clear without exudates. Moist mucous membranes. No oral ulcerations or bleeding gums noted NECK: supple without lymphadenopathy. Trachea is central. No cervical or axillary lymphadenopathy noted. Carotids are 2+, JVD WNL LUNGS: Respiration seems nonlabored, no significant accessory muscle action noted. Breath sounds clear to auscultation bilaterally and equal noted. No wheezes rales or rhonchi noted. No significant dullness noted on percussion. CHEST: Palpation of the chest wall shows no significant chest wall tenderness. No other significant abnormalities noted. HEART: [place] [employer], No PSH, 1/6 EZ aortic area, 1/6 mackenzie systolic murmur mitral area, no rubs, no gallops. ABDOMEN: Multiple scars consistent with previous surgery. No open wounds. There is a large irregular geographic region of erythema and edema involving the anterior abdominal wall primarily to the right of the umbilicus. normoactive bowel sounds. No guarding, no rebound. No rigidity noted . No masses appreciated. EXTREMITIES: Pedal pulses are 1-2+, no calf tenderness noted. No clubbing or cyanosis.trace to 1+ pedal edema noted NEUROLOGICAL: Focused neurological exam showed no significant neurologic deficit. Normal speech, no focal weakness appreciated. PSYCH: Normal mood, normal affect. Judgment and insight within normal limits. SKIN: No significant ecchymosis, rash, ulcerations or signs of pruritus noted. MUSCULOSKELETAL EXAM: No significant joint swelling noted. Results EKG Comments: NSR, No acute no ST-T wave changes noted. Impressions: Abdomen/Pelvis CT 05/13/17 21:30 IMPRESSION: 1. MESH IN THE ANTERIOR ABDOMINAL WALL WITH CHRONIC INFLAMMATORY CHANGES. DEVELOPING FLUID COLLECTION IN THE SUBCUTANEOUS TISSUES EXTERNAL TO THE MESH, POSSIBLY DEVELOPING ABSCESS. 2. GALLSTONES. 3. NO OTHER SIGNIFICANT OR ACUTE FINDING IN THE ABDOMEN OR PELVIS ON CT SCAN WITH IV CONTRAST. Assessment & Plan - Diagnosis (1) Preoperative cardiovascular examination Is this a current diagnosis for this admission?: Yes (2) Abdominal wall abscess Is this a current diagnosis for this admission?: Yes (3) Coronary artery disease Qualifiers: Coronary Disease-Associated Artery/Lesion type: unspecified vessel or lesion type Is this a current diagnosis for this admission?: Yes (4) Hypertension Qualifiers: Hypertension type: unspecified secondary hypertension Qualified Code(s): I15.9 - Secondary hypertension, unspecified Is this a current diagnosis for this admission?: Yes (5) Sleep apnea Qualifiers: Sleep apnea type: unspecified type Qualified Code(s): G47.30 - Sleep apnea , unspecified Is this a current diagnosis for this admission?: Yes (6) Paroxysmal atrial fibrillation Is this a current diagnosis for this admission?: Yes Plan: Patient currently in sinus rhythm. Agree with reversing Coumadin with FFP. Coumadin can be resumed whenever feasible from surgical standpoint. - Notes Notes: Preop cardiovascular examination. Patient currently in sinus rhythm, no clinical CHF. Patient cleared for surgery which seems needed. Agree with reversing Coumadin effect with FFP. Restart chronic Coumadin therapy when feasible. Abdominal wall abscess: Agree with surgeon's approach. Coronary artery disease: Symptomatically stable. Last stress test was negative. 2D echo shows normal LVEF. Hypertension: Currently stable. Sleep apnea syndrome: Recommend nightly CPAP therapy or whenever taking naps. - Time Time Spent: 30 to 50 Minutes - CODE STATUS was discussed, patient remains full code. Surrogate decision-maker unchanged. Multiple medical problems were addressed. More than 50% of the time spent coordinating care, discussing management plans with involved caregivers. Management plans discussed with involved personnels. Medical decision making was of moderate to high complexity , patient's has multiple comorbidities. Medications reviewed and adjusted accordingly: Yes
--- NOTE | 2017-05-14 12:02 | HISTORY AND PHYSICAL E ---
History and Physical NAME: ALM PETIT : 1945 AGE: 71Y ADMITTED: 05/14/2017 ROOM: 305 CONTINUATION: REVIEW OF SYSTEMS: Complaining of neck pains and lumbar pains, and for this he is being given epidural injections under Pain Management. He has a history of shortness of breath and takes Albuterol. Also, has occasional chest pains and takes NitroQuick under the tongue. She has panic situations and takes Xanax. Has inability to control her bladder and stool at times and takes Amitiza for this. Has severe eye syndrome and takes Restasis eye drops. She has insomnia and takes trazodone. She denies any lymph node enlargement. No seizures. Has some cough for the past 2 weeks and recently became productive of whitish phlegm. She also has easy fatigue-ability due to fibromyalgia and takes Cymbalta for this. Abdominal pains since 6 days ago after the trauma. She claims she has chills and fever. The rest of the systems reviewed and are negative. ALLERGIES: CAPTOPRIL. FAMILY HISTORY: Strong for malignancy both parents. PHYSICAL EXAM: GENERAL: Well-developed, slightly overweight 71-year-old female, alert and oriented, complaining of abdominal pain. HEENT: PERRLA. Her mouth has dry mucus. NECK: Quite supple. No adenopathy. LUNGS: Clear. HEART: Regular sinus rhythm. ABDOMEN: Has a prominent swelling with erythema along the right paraumbilical area that is very tender. She has a midline scar. Umbilicus has been removed. EXTREMITIES: No edema. IMAGING STUDIES: CT scan of the abdomen revealed mesh in the anterior abdominal wall with chronic inflammatory changes. Developing fluid collection in the subcutaneous tissues external to the mesh, possibly developing abscess. LABORATORY DATA: Her white count is 6.8, hemoglobin of 10.6. Platelet count is 385. Chemistry: BNP is normal. Glucose is 116. Liver functions tests normal. Urine is normal. IMPRESSION: 1. Diabetes mellitus. 2. Abdominal wall abscess. Abscess appears to be over mesh. 3. Atrial fibrillation and CHF on Coumadin. 4. COPD. 5. Fibromyalgia and hypothyroidism. 6. Arthritis of the spines, cervical and lumbar. 7. Hypertension, on metoprolol and furosemide. PLAN: 1. Correct her coagulation. May need to stop the Coumadin. 2. Keep n.p.o. 3. Hydrate. 4. Will have hospitalist manage her medications. 5. We will ask Dr. Bernal for a Cardiology consultation. 6. Start IV antibiotics. DICTATING PHYSICIAN: PALMIRA ALEGRIA M.D. [id number] PHY#: [id number] ID: [id number] JOB#: [id number] ACCT: [id number] cc:PALMIRA ALEGRIA M.D. >
--- NOTE | 2017-05-14 12:03 | HISTORY AND PHYSICAL E ---
History and Physical NAME: LAM PETIT : 1945 AGE: 71Y ADMITTED: 05/13/2017 ROOM: 305 CHIEF COMPLAINT: Abdominal pains. HISTORY OF PRESENT ILLNESS: This is a 71-year-old female who bumped her abdomen on a chair about 5 days ago. This gradually got bigger and red, and she went to the emergency room on 05/13/17 evening. She had a CT scan of the abdomen which showed mesh in the anterior abdominal wall with chronic inflammatory changes. Developing fluid collection in the subcutaneous tissues external to the mesh, possibly developing abscess. Patient has been on Coumadin for atrial fibrillation. PAST MEDICAL HISTORY: 1. History of diabetes mellitus on Januvia. 2. History of arthritis and gets injection to the back by Pain Management at the [facility]. 3. History of COPD. She used to smoke a pack a day for 30 years but has stopped 25 years ago. 4. History of congestive heart failure in 1999, twice in 2000, and on 09/07/2008. She is under the care of Dr. Bernal, her cra. 5. Atrial fibrillation diagnosed in 2007 and 2008, and takes Coumadin for this. 6. History of hypothyroidism, on levothyroxine. 7. History of hypertension, and takes metoprolol for this. 8. Asthma, COPD, and takes Advair Diskus inhaler. Also takes Singulair. 9. Hypercholesterolemia, and takes Lipitor 10 mg daily. 10. Fibromyalgia and depression, and takes Cymbalta. 11. History of PTSD, and takes Lexapro. 12. Insomnia, and takes trazodone. 13. For her diabetes, she takes Januvia 100 mg in a.m. 14. Inflammatory bowel disease and bladder incontinence, and takes Amitiza. 15. Severe eye syndrome, and puts Restasis eye drops. ALLERGIES: SINUSITIS AND RHINITIS AND TAKES ZYRTEC 10 MG Q.A.M. WELL FLUTICASONE SPRAY PER NOSTRIL ONCE A DAY. INCOMPLETE DICTATION DICTATING PHYSICIAN: PALMIRA ALEGRIA M.D. [id number] PHY#: [id number] ID: [id number] JOB#: [id number] ACCT: [id number] cc:PALMIRA ALEGRIA M.D. >
--- NOTE | 2017-05-14 15:01 | PDOC CONSULTATION ---
Consultation Consult Date: 05/14/17 Attending physician:: PALMIRA ALEGRIA Consult reason:: Medication management and coagulopathy History of Present Illness Admission Date/PCP: 05/14/17 03:16 Patient complains of: Abscess in the abdomen History of Present Illness: LAM PETIT is a 71 year old female with complaints of pain in the lower mid abdomen, suprapubic region that began Wednesday. Also began developing redness in this area on Wednesday as well. Patient is concerned she may have a bowel obstruction and she has had several of them in the past. She has had ventral wall hernias that were repaired and mesh was inserted. Her most recent surgery was in the year 2009. She has had 4 surgeries with 3 of them including insertion of the mesh. Her history is also complicated by the fact that she has had the development of the seromas several times. Patient has had a lot of problems with her abdominal wall and pain since she fell back in the spring and landed on her arm between her body and the ground. She ended up with a hematoma at one time. She thinks she has been running a low-grade fever. Her appetite has been decreased. Patient was evaluated by surgeon today and she is in need for surgery. Patient did admit to having some chest pains over the weekend. She did have a stress test last year which was negative. Patient describes having multiple previous heart catheterization with last one approximately 8 years ago without any significant finding or stent placement. Patient also describes history of atrial fibrillation with ablation in the past. Currently she is on chronic anticoagulation with chronic Coumadin therapy. She has been dealing with serous drainage on the abdominal wall for several years when she had bowel surgery from obstruction. She was at the wound [facility] at one point. This has been recently discontinued but she still have some small drainage up until she started to develop above complaints. Past Medical History Cardiac Medical History: Reports: Atrial Fibrillation - A flutter, Congestive Heart Failure, Hyperlipidema, Heart Murmur - req SBE prophylaxis Denies: Coronary Artery Disease, Myocardial Infarction, Hypertension Pulmonary Medical History: Reports: Asthma - COPD, Bronchitis, Chronic Obstructive Pulmonary Disease (COPD), Sleep Apnea Denies: Pneumonia, Tuberculosis Neurological Medical History: Denies: Seizures Endocrine Medical History: Reports: Diabetes Mellitus Type 1, Diabetes Mellitus Type 2 Malignancy Medical History: Reports: Cervical Cancer GI Medical History: Reports: Hiatal Hernia Denies: Hepatitis Musculoskeltal Medical History: Reports: Arthritis Psychiatric Medical History: Reports: Depression Hematology: Reports: Anemia - hx of Denies: Hemophilia, Sickle Cell Disease Past Surgical History Past Surgical History: Reports: 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, Cardiac Catheterization, Herniorrhaphy, Hysterectomy, Orthopedic Surgery - R knee, R toe ,R knee, Tonsillectomy, Tubal Ligation, Other - Ablation for atrial fibrillation Denies: Mastectomy, Pacemaker Social History Information Source: Patient Smoking Status: Former Smoker Number of Years Smokin Last Time Smoked: 09/06/1991 Frequency of Alcohol Use: Rare Hx Recreational Drug Use: No Drugs: None Hx Prescription Drug Abuse: No - Advance Directive Resuscitation Status: Full Code Family History Family History: Hypertension, Other Parental Family History Reviewed: Yes Children Family History Reviewed: Yes Sibling(s) Family History Reviewed.: Yes Medication/Allergy Home Medications: Benazepril HCl [Lotensin 10 Mg Tablet] 10 mg PO DAILY 05/14/17 Cyclosporine [Restasis Droperette] 1 each OU Q12 05/14/17 Duloxetine HCl [Cymbalta] 60 mg PO DAILY 05/14/17 Escitalopram Oxalate [Lexapro] 5 mg PO QHS 05/14/17 Furosemide [Lasix 20 mg Tablet] 20 mg PO DAILY 05/14/17 Levothyroxine Sodium [Synthroid] 125 mcg PO QAM 05/14/17 Lubiprostone [Amitiza 24 Mcg Capsule] 24 mcg PO BID 05/14/17 Metoprolol Succinate [Toprol Xl 25 mg Tab.sr] 37.5 mg PO DAILY 05/14/17 Montelukast Sodium [Singulair 10 mg Tablet] 10 mg PO QPM 05/14/17 Oxycodone HCl/Acetaminophen [Percocet 5-325 mg Tablet] 1 tab PO BIDP PRN Potassium Chloride 20 meq PO DAILY 05/14/17 Sitagliptin Phosphate [Januvia] 100 mg PO DAILY 05/14/17 Trazodone HCl [Desyrel 50 mg Tablet] 25 mg PO HSP PRN 05/14/17 Warfarin Sodium [Coumadin] 5 mg PO QHS 05/14/17 Allergies/Adverse Reactions: captopril [Captopril] Allergy (Severe, Verified 09/26/16 12:23) cough thimerosal [From Merthiolate] Allergy (Severe, Verified 09/26/16 12:23) severe rash Review of Systems Constitutional: PRESENT: fever(s). ABSENT: chills, headache(s), weight gain, weight loss Eyes: ABSENT: visual disturbances Ears: ABSENT: hearing changes Nose, Mouth, and Throat: ABSENT: mouth pain, sore throat Cardiovascular: PRESENT: edema - Chronic in the lower extremities. ABSENT: chest pain, dyspnea on exertion, orthropnea, palpitations Respiratory: ABSENT: cough, dyspnea, hemoptysis, sputum Gastrointestinal: PRESENT: abdominal pain - Mainly on the lower right, nausea - Occasional, other - Hematoma noted on the lower right. ABSENT: constipation, diarrhea, hematemesis, hematochezia, melena, vomiting Genitourinary: ABSENT: dysuria, hematuria Musculoskeletal: ABSENT: joint swelling Integumentary: PRESENT: rash - Lower abdomen. ABSENT: pruritus, wounds Neurological: ABSENT: abnormal gait, abnormal speech, confusion, dizziness, focal weakness, syncope Psychiatric: ABSENT: anxiety, depression, homidical ideation, suicidal ideation Endocrine: ABSENT: cold intolerance, heat intolerance, polydipsia, polyphagia, polyuria Hematologic/Lymphatic: PRESENT: easy bleeding - Due to warfarin, easy bruising - Due to warfarin Physical Exam Vital Signs: Temp Pulse Resp BP Pulse Ox 98.8 F 65 12 109/53 L 99 05/14/17 14:20 05/14/17 14:20 05/14/17 14:20 05/14/17 14:20 05/14/17 14:20 Intake & Output 05/13/17 05/14/17 05/15/17 06:59 06:59 06:59 Intake Total 250 451 Output Total 0 Balance 250 451 Weight 94.3 kg General appearance: PRESENT: no acute distress, cooperative, morbidly obese Head exam: PRESENT: atraumatic, normocephalic Eye exam: PRESENT: conjunctiva pink, EOMI, PERRLA. ABSENT: scleral icterus Ear exam: PRESENT: normal external ear exam. ABSENT: drainage Mouth exam: PRESENT: moist, neck supple, tongue midline Throat exam: ABSENT: post pharyngeal erythema, tonsillar erythema Neck exam: ABSENT: carotid bruit, JVD, lymphadenopathy, thyromegaly Respiratory exam: PRESENT: clear to auscultation michele. ABSENT: rales, rhonchi, wheezes Cardiovascular exam: PRESENT: RRR, systolic murmur - Left sternal border. ABSENT: diastolic murmur, gallop, rubs Pulses: PRESENT: normal dorsalis pedis pul Vascular exam: PRESENT: normal capillary refill GI/Abdominal exam: PRESENT: guarding - Mild, mass - Abscess and mass with ecchymosis, normal bowel sounds, soft, tenderness - Right lower quadrant. ABSENT: distended - Obese Rectal exam: PRESENT: deferred Extremities exam: PRESENT: full ROM, +1 edema. ABSENT: calf tenderness, clubbing Neurological exam: PRESENT: alert, awake, oriented to person, oriented to place , oriented to time, oriented to situation Psychiatric exam: PRESENT: appropriate affect, normal mood. ABSENT: homicidal ideation, suicidal ideation Skin exam: PRESENT: dry, warm, other - Ecchymosis noted in the lower abdominal wall. ABSENT: cyanosis, rash Results Laboratory Results: 05/14/17 09:30 Blood Type AB POSITIVE Impressions: Abdomen/Pelvis CT 05/13/17 21:30 IMPRESSION: 1. MESH IN THE ANTERIOR ABDOMINAL WALL WITH CHRONIC INFLAMMATORY CHANGES. DEVELOPING FLUID COLLECTION IN THE SUBCUTANEOUS TISSUES EXTERNAL TO THE MESH, POSSIBLY DEVELOPING ABSCESS. 2. GALLSTONES. 3. NO OTHER SIGNIFICANT OR ACUTE FINDING IN THE ABDOMEN OR PELVIS ON CT SCAN WITH IV CONTRAST. Assessment & Plan - Diagnosis (1) Abdominal wall abscess Is this a current diagnosis for this admission?: Yes (2) Chronic atrial fibrillation Is this a current diagnosis for this admission?: Yes (3) Coronary artery disease Qualifiers: Coronary Disease-Associated Artery/Lesion type: unspecified vessel or lesion type [place] vs. transplanted heart: [place] heart Associated angina: without angina Qualified Code(s): I25.10 - Atherosclerotic heart disease of [place] coronary artery without angina pectoris Is this a current diagnosis for this admission?: Yes (4) Depression Qualifiers: Depression Type: other depression Qualified Code(s): F32.89 - Other specified depressive episodes Is this a current diagnosis for this admission?: Yes (5) Hyperlipidemia Qualifiers: Hyperlipidemia type: unspecified Qualified Code(s): E78.5 - Hyperlipidemia , unspecified Is this a current diagnosis for this admission?: Yes (6) Hypertension Qualifiers: Hypertension type: unspecified secondary hypertension Qualified Code(s): I15.9 - Secondary hypertension, unspecified Is this a current diagnosis for this admission?: Yes (7) Sleep apnea Qualifiers: Sleep apnea type: unspecified type Qualified Code(s): G47.30 - Sleep apnea , unspecified Is this a current diagnosis for this admission?: Yes - Time Time Spent: 30 to 50 Minutes - Plan Summary Plan Summary: Agree with administration of FFP. Okay to hold Coumadin, we will resume when okay with surgery postoperatively. We will continue home medications except diuretics and potassium, monitor hematocrit as well as INR and electrolytes. Continue current antibiotics. Thank you so much for this consultation, we will follow the patient with you.
[2017-05-14 16:45] LABS: PROTHROMBIN TIME 22.9 SEC (11.4-15.4)
[2017-05-14 16:46] LABS: PARTIAL THROMBOPLASTIN TIME 55.4 SEC (23.5-35.8)
[2017-05-14] MEDS ORDERED: PROPOFOL INJ 200 MG/20 ML VIAL IV ONE (17:02)
[2017-05-14] MEDS ORDERED: MIDAZOLAM 2 MG/2 ML INJ ONE (17:02)
[2017-05-14] MEDS: MONTELUKAST SODIUM 10 MG TABLET PO SCH (17:46)
[2017-05-14] MEDS: LUBIPROSTONE 24 MCG CAPSULE PO SCH (17:46)
--- NOTE | 2017-05-14 17:49 | Operative Report ---
Operative Report DATE OF SURGERY: 05/14/17 PREOPERATIVE DIAGNOSIS: Abdominal wall abscess POSTOPERATIVE DIAGNOSIS: Same OPERATION: 1. Drainage of abdominal wall abscess with limited debridement. 2. Placement of large Malecot drain into abdominal wall. 3. Use of intraoperative ultrasonography SURGEON: BRITTNEY SHABAZZ ANESTHESIA: LMAC TISSUE REMOVED OR ALTERED: Pus and debris COMPLICATIONS: None ESTIMATED BLOOD LOSS: Minimal 20 cc INTRAOPERATIVE FINDINGS: See below PROCEDURE: Patient was taken to the preop holding her to the main operating room where LMAC anesthesia was induced. Arms were abducted, abdomen exposed, prepped and draped sterile fashion. Surgical plan surgical timeout conducted; appropriate level of LMAC anesthesia was induced. The abdominal wall was scanned with a variable frequency linear transducer. Findings were significant for large areas of hypoechogenicity consistent with fluid. Skin was anesthetized 1% lidocaine with epinephrine. A small 3 cm transverse incision was made thickness through the skin and subcutaneous tissue into the subcutaneous pocket. We immediately got out approximately 200 cc of dorian pus. This was sent for culture and sensitivity. Using my index finger, loculations were broken up in a circumferential fashion from this access point. Of note we did not penetrate the abdominal wall fascia. The patient was anticoagulated, had received 2 units of FFP preop, and felt the safest maneuver was to avoid any further eruption of tissue. The evacuation of the pus was felt to be very. We irrigated the subcutaneous pocket out with multiple liters of saline then placed a large 32 Malecot drain with its nose cut off into the abscess cavity. Is secured to the skin at 2 sites with 2-0 Prolene suture. We experimented with the irrigation and aspiration and it works satisfactorily with some leakage around the tube but we felt that this was acceptable. The drain was hooked to a drainage bag. Hemostasis was excellent throughout the operation. Minimal cautery was used to obtain some subcutaneous bleeders. Estimated blood loss was 20 cc. Patient taught procedure well, taken to recovery room in stable condition.
[2017-05-14] MEDS ORDERED: MEPERIDINE HCL/PF INJ 25 MG/1 ML DISP.SYRIN IV PRN (17:57)
[2017-05-14] MEDS ORDERED: DIPHENHYDRAMINE HCL 50 MG/ML VIAL IV PRN (17:57)
[2017-05-14] MEDS ORDERED: PROMETHAZINE HCL INJ 25 MG/1 ML VIAL IV PRN (17:57)
[2017-05-14] MEDS ORDERED: FENTANYL CITRATE INJ/PF 100 MCG/2 ML AMPUL IV PRN ×3 (17:57)
[2017-05-14] MEDS: FENTANYL CITRATE INJ/PF 100 MCG/2 ML AMPUL ONE ×2 (18:00→18:05)
[2017-05-14] MEDS ORDERED: DEXTROSE 40% GEL 15 GM TUBE PO PRN ×2 (20:51)
[2017-05-14] MEDS ORDERED: GLUCAGON,HUMAN RECOMB 1 MG INJ IM PRN (20:51)
[2017-05-14] MEDS ORDERED: DEXTROSE 50%-WATER 25 GM/50 ML DISP.SYRIN IV PRN ×2 (20:51)
[2017-05-14] MEDS ORDERED: (PENDING PHARMACY ID) (Escitalopram Oxalate [Lexapro] 5 MG) PO SCH (22:00)
[2017-05-14] MEDS: CYCLOSPORINE 0.05% OPH EMULSIO 0.4 ML DROPERETTE OU SCH (22:15)
[2017-05-14] MEDS: ESCITALOPRAM OXALATE 10 MG TABLET PO SCH (22:16)
[2017-05-14] MEDS: OXYCODONE-ACETAMINOPHEN 5-325 MG TABLET PO PRN (22:16)
[2017-05-15] MEDS: CLINDAMYCIN 900 MG/D5W RTU 50 ML IV SCH ×4 (02:33→20:48)
[2017-05-15 06:03] LABS: HEMATOCRIT 28.2 % (36.0-47.0); HEMOGLOBIN 9.3 g/dL (12.0-15.5); HGB HCT DIFFERENCE -0.3; MEAN CORPUSCULAR HEMOGLOBIN 28.5 pg (27.0-33.4); MEAN CORPUSCULAR VOLUME 87 fl (80-97); RED BLOOD COUNT 3.26 10^6/uL (3.72-5.28); RED CELL DISTRIBUTION WIDTH 15.5 % (11.5-14.0); WHITE BLOOD COUNT 5.1 10^3/uL (4.0-10.5)
[2017-05-15 06:09] LABS: PROTHROMBIN TIME 25.3 SEC (11.4-15.4)
[2017-05-15 06:17] LABS: ANION GAP 10 (5-19); BLOOD UREA NITROGEN 12 mg/dL (7-20); CARBON DIOXIDE 28 mmol/L (22-30); CHLORIDE 105 mmol/L (98-107); CREATININE RESULT 1.01 mg/dL (0.52-1.25); GLUCOSE 122 mg/dL (75-110); POTASSIUM 3.6 mmol/L (3.6-5.0); SODIUM 142.8 mmol/L (137-145)
[2017-05-15] MEDS: MORPHINE SULFATE 10 MG/ML INJ IV PRN ×2 (06:45→11:45)
[2017-05-15] MEDS ORDERED: (PENDING PHARMACY ID) (Levothyroxine Sodium [Synthroid] 125 MCG) PO SCH (08:00)
[2017-05-15] MEDS: LEVOTHYROXINE SODIUM 0.025 MG TABLET PO SCH (09:43)
[2017-05-15] MEDS: LEVOTHYROXINE SODIUM 0.1 MG TABLET PO SCH (09:44)
[2017-05-15] MEDS: DULOXETINE HCL 30 MG CAPSULE.DR PO SCH (09:44)
[2017-05-15] MEDS: METOPROLOL SUCCINATE 25 MG TAB.SR.24H PO SCH (09:45)
[2017-05-15] MEDS: LUBIPROSTONE 24 MCG CAPSULE PO SCH ×2 (09:47→19:53)
[2017-05-15] MEDS: BENAZEPRIL HCL 10 MG TABLET PO SCH (09:48)
[2017-05-15] MEDS: CYCLOSPORINE 0.05% OPH EMULSIO 0.4 ML DROPERETTE OU SCH ×2 (09:48→22:59)
--- NOTE | 2017-05-15 10:48 | PDOC PROGRESS REPORT ---
Subjective Progress Note for:: 05/15/17 Subjective:: Patient claims to be doing better from cardiac standpoint. She keeps having some intermittent chest pains but these are sharp and seems atypical. Patient has a chronic history of this. Patient did have surgical procedure on her abdominal wall yesterday and has some problem with drainage this morning but is being addressed by the surgeon. Cardiac gtz she is stable. Telemetry strip shows sinus rhythm without any sustained tachycardia or bradycardia arrhythmias. Physical Exam Vital Signs: Temp Pulse Resp BP Pulse Ox 98.9 F 76 16 129/57 H 95 05/15/17 08:15 05/15/17 08:15 05/15/17 08:15 05/15/17 08:15 05/15/17 08:15 Intake & Output 05/14/17 05/15/17 05/16/17 06:59 06:59 06:59 Intake Total 250 2851 Output Total 0 767 Balance 250 2084 Weight 94.3 kg Exam: GENERAL: well-nourished and in no acute distress. Alert and oriented x3 HEAD: Atraumatic, normocephalic. EYES: Pupils equal round and reactive to light, extraocular movements intact, sclera anicteric, conjunctiva are normal. ENT: TMs normal, nares patent, oropharynx clear without exudates. Moist mucous membranes. No oral ulcerations or bleeding gums noted NECK: supple without lymphadenopathy. Trachea is central. No cervical or axillary lymphadenopathy noted. Carotids are 2+, JVD WNL LUNGS: Respiration seems nonlabored, no significant accessory muscle action noted. Breath sounds clear to auscultation bilaterally and equal noted. No wheezes rales or rhonchi noted. No significant dullness noted on percussion. CHEST: Palpation of the chest wall shows no significant chest wall tenderness. No other significant abnormalities noted. 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 ABDOMEN: Soft, mild ecchymosis, redness and mild tenderness appreciated, normoactive bowel sounds. No guarding, no rebound. No rigidity noted . No masses appreciated. EXTREMITIES: Pedal pulses are 1-2+, no calf tenderness noted. No clubbing or cyanosis.trace to 1+ pedal edema noted NEUROLOGICAL: Focused neurological exam showed no significant neurologic deficit. Normal speech, no focal weakness appreciated. PSYCH: Normal mood, normal affect. Judgment and insight within normal limits. SKIN: No significant ecchymosis, rash, ulcerations or signs of pruritus noted. MUSCULOSKELETAL EXAM: No significant joint swelling noted. Results Laboratory Results: 05/15/17 05:09 05/15/17 05:09 05/14/17 05/15/17 05/15/17 09:30 05:09 05:09 WBC 5.1 RBC 3.26 L Hgb 9.3 L Hct 28.2 L MCV 87 MCH 28.5 MCHC 33.0 RDW 15.5 H Plt Count 325 Sodium 142.8 Potassium 3.6 Chloride 105 Carbon Dioxide 28 Anion Gap 10 BUN 12 Creatinine 1.01 Est GFR ( Amer) > 60 Est GFR (Non-Af Amer) 54 L Glucose 122 H Calcium 9.0 Blood Type AB POSITIVE EKG Comments: Currently maintaining sinus rhythm. Previous echocardiogram and nuclear stress test results were reviewed. Impressions: Abdomen/Pelvis CT 05/13/17 21:30 IMPRESSION: 1. MESH IN THE ANTERIOR ABDOMINAL WALL WITH CHRONIC INFLAMMATORY CHANGES. DEVELOPING FLUID COLLECTION IN THE SUBCUTANEOUS TISSUES EXTERNAL TO THE MESH, POSSIBLY DEVELOPING ABSCESS. 2. GALLSTONES. 3. NO OTHER SIGNIFICANT OR ACUTE FINDING IN THE ABDOMEN OR PELVIS ON CT SCAN WITH IV CONTRAST. Assessment & Plan - Diagnosis (1) Preoperative cardiovascular examination Is this a current diagnosis for this admission?: Yes (2) Abdominal wall abscess Is this a current diagnosis for this admission?: Yes (3) Coronary artery disease Qualifiers: Coronary Disease-Associated Artery/Lesion type: unspecified vessel or lesion type [place] vs. transplanted heart: [place] heart Associated angina: without angina Qualified Code(s): I25.10 - Atherosclerotic heart disease of [place] coronary artery without angina pectoris Is this a current diagnosis for this admission?: Yes (4) Hypertension Qualifiers: Hypertension type: unspecified secondary hypertension Qualified Code(s): I15.9 - Secondary hypertension, unspecified Is this a current diagnosis for this admission?: Yes (5) Sleep apnea Qualifiers: Sleep apnea type: unspecified type Qualified Code(s): G47.30 - Sleep apnea , unspecified Is this a current diagnosis for this admission?: Yes (6) Paroxysmal atrial fibrillation Is this a current diagnosis for this admission?: Yes - Notes Notes: Patient is postop day 1 patient currently in sinus rhythm, no clinical CHF. Consider restarting Coumadin. PT with INR currently in therapeutic range. Paroxysmal atrial fibrillation: Resume Coumadin when feasible from surgical standpoint. May consider a switch to newer oral anticoagulants. Abdominal wall abscess: Status post surgical intervention. Patient being followed by surgeon. Coronary artery disease: Symptomatically stable. Last stress test was negative. 2D echo shows normal LVEF. Patient to report any change in symptoms. Hypertension: Currently stable. Sleep apnea syndrome: Recommend nightly CPAP therapy or whenever taking naps. - Time Time with patient: 15-25 minutes - CODE STATUS was discussed, patient remains full code. Surrogate decision-maker patient spouse. Multiple medical problems were addressed. More than 50% of the time spent coordinating care, discussing management plans with involved caregivers. Management plans discussed with involved personnels. Medical decision making was of moderate to high complexity , patient's has multiple comorbidities. Medications reviewed and adjusted accordingly: Yes
--- NOTE | 2017-05-15 10:48 | PDOC PROGRESS REPORT ---
Subjective Progress Note for:: 05/15/17 Subjective:: The patient tolerated surgery however her drain developed clots and obstruction and has to be taken out and patient placed on dressing changes. She denies chills or fever, diarrhea, nausea or vomiting, shortness of breath. Tolerating oral intake well. Physical Exam Vital Signs: Temp Pulse Resp BP Pulse Ox 98.9 F 76 16 129/57 H 95 05/15/17 08:15 05/15/17 08:15 05/15/17 08:15 05/15/17 08:15 05/15/17 08:15 Intake & Output 05/14/17 05/15/17 05/16/17 06:59 06:59 06:59 Intake Total 250 2851 Output Total 0 767 Balance 250 2084 Weight 94.3 kg General appearance: PRESENT: no acute distress, cooperative Head exam: PRESENT: normocephalic Mouth exam: PRESENT: moist, neck supple Neck exam: ABSENT: JVD Respiratory exam: PRESENT: clear to auscultation michele Cardiovascular exam: PRESENT: irregular rhythm. ABSENT: gallop GI/Abdominal exam: PRESENT: hypoactive bowel sounds, soft Extremities exam: PRESENT: other - Trace edema bilateral Neurological exam: PRESENT: alert, awake, oriented to situation Skin exam: ABSENT: cyanosis Results Laboratory Results: 05/15/17 05:09 05/15/17 05:09 05/14/17 05/15/17 05/15/17 09:30 05:09 05:09 WBC 5.1 RBC 3.26 L Hgb 9.3 L Hct 28.2 L MCV 87 MCH 28.5 MCHC 33.0 RDW 15.5 H Plt Count 325 Sodium 142.8 Potassium 3.6 Chloride 105 Carbon Dioxide 28 Anion Gap 10 BUN 12 Creatinine 1.01 Est GFR ( Amer) > 60 Est GFR (Non-Af Amer) 54 L Glucose 122 H Calcium 9.0 Blood Type AB POSITIVE Impressions: Abdomen/Pelvis CT 05/13/17 21:30 IMPRESSION: 1. MESH IN THE ANTERIOR ABDOMINAL WALL WITH CHRONIC INFLAMMATORY CHANGES. DEVELOPING FLUID COLLECTION IN THE SUBCUTANEOUS TISSUES EXTERNAL TO THE MESH, POSSIBLY DEVELOPING ABSCESS. 2. GALLSTONES. 3. NO OTHER SIGNIFICANT OR ACUTE FINDING IN THE ABDOMEN OR PELVIS ON CT SCAN WITH IV CONTRAST. Assessment & Plan - Diagnosis (1) Abdominal wall abscess Is this a current diagnosis for this admission?: Yes (2) Chronic atrial fibrillation Is this a current diagnosis for this admission?: Yes (3) Coronary artery disease Qualifiers: Coronary Disease-Associated Artery/Lesion type: unspecified vessel or lesion type [place] vs. transplanted heart: [place] heart Associated angina: without angina Qualified Code(s): I25.10 - Atherosclerotic heart disease of [place] coronary artery without angina pectoris Is this a current diagnosis for this admission?: Yes (4) Depression Qualifiers: Depression Type: other depression Qualified Code(s): F32.89 - Other specified depressive episodes Is this a current diagnosis for this admission?: Yes (5) Hyperlipidemia Qualifiers: Hyperlipidemia type: unspecified Qualified Code(s): E78.5 - Hyperlipidemia , unspecified Is this a current diagnosis for this admission?: Yes (6) Hypertension Qualifiers: Hypertension type: unspecified secondary hypertension Qualified Code(s): I15.9 - Secondary hypertension, unspecified Is this a current diagnosis for this admission?: Yes (7) Sleep apnea Qualifiers: Sleep apnea type: unspecified type Qualified Code(s): G47.30 - Sleep apnea , unspecified Is this a current diagnosis for this admission?: Yes - Time Time Spent with patient: 15-24 minutes - Plan Summary Plan Summary: We will resume warfarin tonight. Monitor PT/INR. Monitor hematocrit as well. We will continue to follow. Continue other medications and supportive care.
--- NOTE | 2017-05-15 12:31 | PDOC PROGRESS REPORT ---
Subjective Progress Note for:: 05/15/17 Subjective:: Patient is postoperative day 1 status post limited abdominal wall incision with drainage of 200 cc of dorian pus. Microbiology pending. Patient remains on intravenous antibiotics. She is back on a diet and Coumadin resumed. She had no bleeding problems overnight. Physical Exam Vital Signs: Temp Pulse Resp BP Pulse Ox 98.4 F 66 16 117/46 L 96 05/15/17 11:39 05/15/17 11:39 05/15/17 11:39 05/15/17 11:39 05/15/17 11:39 Intake & Output 05/14/17 05/15/17 05/16/17 06:59 06:59 06:59 Intake Total 250 2851 Output Total 0 767 Balance 250 2084 Weight 94.3 kg GI/Abdominal exam: PRESENT: other - The abdominal wall dressing was removed. We made an attempt to irrigate the large Malecot drain going into the abscess cavity but was unsuccessful. Therefore the Malecot drain was removed. We sedated the patient lightly, irrigated the wound and underlying skin flaps in an attempt to evacuate any clot and this was marginally successful. Wound packed open with a portion of half-inch iodoform packing Results Laboratory Results: 05/15/17 05:09 05/15/17 05:09 05/14/17 05/15/17 05/15/17 09:30 05:09 05:09 WBC 5.1 RBC 3.26 L Hgb 9.3 L Hct 28.2 L MCV 87 MCH 28.5 MCHC 33.0 RDW 15.5 H Plt Count 325 Sodium 142.8 Potassium 3.6 Chloride 105 Carbon Dioxide 28 Anion Gap 10 BUN 12 Creatinine 1.01 Est GFR ( Amer) > 60 Est GFR (Non-Af Amer) 54 L Glucose 122 H Calcium 9.0 Blood Type AB POSITIVE Impressions: Abdomen/Pelvis CT 05/13/17 21:30 IMPRESSION: 1. MESH IN THE ANTERIOR ABDOMINAL WALL WITH CHRONIC INFLAMMATORY CHANGES. DEVELOPING FLUID COLLECTION IN THE SUBCUTANEOUS TISSUES EXTERNAL TO THE MESH, POSSIBLY DEVELOPING ABSCESS. 2. GALLSTONES. 3. NO OTHER SIGNIFICANT OR ACUTE FINDING IN THE ABDOMEN OR PELVIS ON CT SCAN WITH IV CONTRAST. Assessment & Plan - Diagnosis (1) Abdominal wall abscess Is this a current diagnosis for this admission?: Yes Plan: Patient is 1 day status post limited abdominal wall debridement, evacuation of 200 cc of pus. Patient tolerated procedure well. Unfortunately irrigation and drain system installed in the operating room unsuccessful because of the patient developed thrombus in her postoperative cavity. We have debrided some of that thrombus as much as she can tolerate at bedside. Plan: 1. Restored to iodoform packing of the superficial aspect of the wound cavity; we hope that the perimeter pockets will Their Own. 2. Continue Coumadin Anticoagulation Therapy for Her A. fib 3. Obtain a Discharge Planning Home Health Consult to Assist with wound care as patient lives alone.
[2017-05-15] MEDS: MONTELUKAST SODIUM 10 MG TABLET PO SCH (18:02)
[2017-05-15] MEDS: OXYCODONE-ACETAMINOPHEN 5-325 MG TABLET PO PRN (18:02)
[2017-05-15] MEDS: WARFARIN SODIUM 5 MG TABLET PO SCH (23:01)
[2017-05-15] MEDS: ESCITALOPRAM OXALATE 10 MG TABLET PO SCH (23:02)
[2017-05-16] MEDS: MORPHINE SULFATE 10 MG/ML INJ IV PRN (01:51)
[2017-05-16] MEDS: CLINDAMYCIN 900 MG/D5W RTU 50 ML IV SCH ×3 (03:15→15:00)
[2017-05-16] MEDS: DEXTROSE 5%-NORMAL SALINE 1,000 ML IV PRN (03:18)
[2017-05-16 05:05] LABS: HEMATOCRIT 28.2 % (36.0-47.0); HEMOGLOBIN 9.6 g/dL (12.0-15.5); HGB HCT DIFFERENCE 0.6; MEAN CORPUSCULAR HEMOGLOBIN 29.4 pg (27.0-33.4); MEAN CORPUSCULAR HGB CONC 34.2 g/dL (32.0-36.0); MEAN CORPUSCULAR VOLUME 86 fl (80-97); RED BLOOD COUNT 3.28 10^6/uL (3.72-5.28); RED CELL DISTRIBUTION WIDTH 15.7 % (11.5-14.0); WHITE BLOOD COUNT 4.7 10^3/uL (4.0-10.5)
[2017-05-16 05:15] LABS: PROTHROMBIN TIME 24.7 SEC (11.4-15.4)
[2017-05-16] MEDS: OXYCODONE-ACETAMINOPHEN 5-325 MG TABLET PO PRN ×2 (06:23→21:02)
--- NOTE | 2017-05-16 10:13 | PDOC PROGRESS REPORT ---
Subjective Progress Note for:: 05/16/17 Subjective:: Patient is postoperative day 2 status post abdominal wall debridement, with unsuccessful drainage system, now reverted to simple iodoform packing. Patient has no unique new complaints. Physical Exam Vital Signs: Temp Pulse Resp BP Pulse Ox 98.7 F 67 20 114/50 L 96 05/16/17 08:09 05/16/17 08:09 05/16/17 08:09 05/16/17 08:09 05/16/17 08:09 Intake & Output 05/15/17 05/16/17 05/17/17 06:59 06:59 06:59 Intake Total 2851 2967 Output Total 767 300 Balance 2084 2667 Weight 98.6 kg General appearance: PRESENT: no acute distress GI/Abdominal exam: PRESENT: other - Erythema and induration of abdominal wall essentially resolved. Some drainage from the packing site. Results Laboratory Results: 05/16/17 04:15 05/15/17 05:09 05/16/17 04:15 WBC 4.7 RBC 3.28 L Hgb 9.6 L Hct 28.2 L MCV 86 MCH 29.4 MCHC 34.2 RDW 15.7 H Plt Count 327 Impressions: Abdomen/Pelvis CT 05/13/17 21:30 IMPRESSION: 1. MESH IN THE ANTERIOR ABDOMINAL WALL WITH CHRONIC INFLAMMATORY CHANGES. DEVELOPING FLUID COLLECTION IN THE SUBCUTANEOUS TISSUES EXTERNAL TO THE MESH, POSSIBLY DEVELOPING ABSCESS. 2. GALLSTONES. 3. NO OTHER SIGNIFICANT OR ACUTE FINDING IN THE ABDOMEN OR PELVIS ON CT SCAN WITH IV CONTRAST. Assessment & Plan - Diagnosis (1) Abdominal wall abscess Is this a current diagnosis for this admission?: Yes Plan: Postoperative day 2 status post abdominal wall debridement, clinically improved by all parameters, cultures no growth so far, on IV clindamycin Recommendations: 1. Patient can safely switch to p.o. clindamycin. 2. Patient and/or family need to be instructed on wound care; I spent a fair amount of time talking with the patient about this dictation; she offered a lot of push back.. We will get home health involved as best we can. 3. Anticipate discharge home tomorrow with local wound care. I explained to the patient that long-term antibiotic therapy will put her at risk for Clostridium difficile infection.
[2017-05-16] MEDS: METOPROLOL SUCCINATE 25 MG TAB.SR.24H PO SCH (10:16)
[2017-05-16] MEDS: LEVOTHYROXINE SODIUM 0.025 MG TABLET PO SCH (10:16)
[2017-05-16] MEDS: DULOXETINE HCL 30 MG CAPSULE.DR PO SCH (10:17)
[2017-05-16] MEDS: LUBIPROSTONE 24 MCG CAPSULE PO SCH ×2 (10:17→18:39)
[2017-05-16] MEDS: LEVOTHYROXINE SODIUM 0.1 MG TABLET PO SCH (10:17)
[2017-05-16] MEDS: BENAZEPRIL HCL 10 MG TABLET PO SCH (10:17)
[2017-05-16] MEDS: CYCLOSPORINE 0.05% OPH EMULSIO 0.4 ML DROPERETTE OU SCH ×2 (10:18→21:03)
--- NOTE | 2017-05-16 10:35 | PDOC PROGRESS REPORT ---
Subjective Progress Note for:: 05/16/17 Subjective:: Patient reports that the hematoma is less but still has some clots remaining. No reported temperature spikes, respiratory distress, chills nor fever nor diarrhea. Some discomfort noted from the surgical site. Denies any chest pain at all. Physical Exam Vital Signs: Temp Pulse Resp BP Pulse Ox 98.7 F 67 20 114/50 L 96 05/16/17 08:09 05/16/17 08:09 05/16/17 08:09 05/16/17 08:09 05/16/17 08:09 Intake & Output 05/15/17 05/16/17 05/17/17 06:59 06:59 06:59 Intake Total 2851 2967 Output Total 767 300 Balance 2084 2667 Weight 98.6 kg General appearance: PRESENT: no acute distress, cooperative, obese Head exam: PRESENT: normocephalic Eye exam: PRESENT: EOMI Mouth exam: PRESENT: moist, neck supple Neck exam: ABSENT: JVD Respiratory exam: PRESENT: clear to auscultation michele Cardiovascular exam: PRESENT: irregular rhythm. ABSENT: gallop GI/Abdominal exam: PRESENT: soft, tenderness - Right lower quadrant area where surgical site is. Some drainage noted on the packing site.. ABSENT: distended Extremities exam: PRESENT: other - Trace lower extremity edema Neurological exam: PRESENT: alert, awake, oriented to situation Skin exam: PRESENT: dry, warm. ABSENT: cyanosis Results Laboratory Results: 05/16/17 04:15 05/15/17 05:09 05/16/17 04:15 WBC 4.7 RBC 3.28 L Hgb 9.6 L Hct 28.2 L MCV 86 MCH 29.4 MCHC 34.2 RDW 15.7 H Plt Count 327 Impressions: Abdomen/Pelvis CT 05/13/17 21:30 IMPRESSION: 1. MESH IN THE ANTERIOR ABDOMINAL WALL WITH CHRONIC INFLAMMATORY CHANGES. DEVELOPING FLUID COLLECTION IN THE SUBCUTANEOUS TISSUES EXTERNAL TO THE MESH, POSSIBLY DEVELOPING ABSCESS. 2. GALLSTONES. 3. NO OTHER SIGNIFICANT OR ACUTE FINDING IN THE ABDOMEN OR PELVIS ON CT SCAN WITH IV CONTRAST. Assessment & Plan - Diagnosis (1) Abdominal wall abscess Is this a current diagnosis for this admission?: Yes (2) Chronic atrial fibrillation Is this a current diagnosis for this admission?: Yes (3) Coronary artery disease Qualifiers: Coronary Disease-Associated Artery/Lesion type: unspecified vessel or lesion type [place] vs. transplanted heart: [place] heart Associated angina: without angina Qualified Code(s): I25.10 - Atherosclerotic heart disease of [place] coronary artery without angina pectoris Is this a current diagnosis for this admission?: Yes (4) Depression Qualifiers: Depression Type: other depression Qualified Code(s): F32.89 - Other specified depressive episodes Is this a current diagnosis for this admission?: Yes (5) Hyperlipidemia Qualifiers: Hyperlipidemia type: unspecified Qualified Code(s): E78.5 - Hyperlipidemia , unspecified Is this a current diagnosis for this admission?: Yes (6) Hypertension Qualifiers: Hypertension type: unspecified secondary hypertension Qualified Code(s): I15.9 - Secondary hypertension, unspecified Is this a current diagnosis for this admission?: Yes (7) Sleep apnea Qualifiers: Sleep apnea type: unspecified type Qualified Code(s): G47.30 - Sleep apnea , unspecified Is this a current diagnosis for this admission?: Yes - Time Time Spent with patient: 25-34 minutes - Plan Summary Plan Summary: Case discussed with surgical service. The patient will be managed conservatively with wound packing as placing a drain has failed. Continue home medications and warfarin. Recheck PT/INR in 3 days when discharged. Appointment with primary care physician in 1 week. We will sign off from her case. Please reconsult as as needed. Thank you so much for letting us participate in her care.
[2017-05-16] MEDS: MONTELUKAST SODIUM 10 MG TABLET PO SCH (18:38)
[2017-05-16] MEDS: CLINDAMYCIN HCL 150 MG CAPSULE PO SCH ×2 (18:39→23:24)
[2017-05-16] MEDS: ESCITALOPRAM OXALATE 10 MG TABLET PO SCH (21:03)
[2017-05-16] MEDS: WARFARIN SODIUM 5 MG TABLET PO SCH (21:03)
[2017-05-17] MEDS: CLINDAMYCIN HCL 150 MG CAPSULE PO SCH ×2 (05:59→11:32)
[2017-05-17] MEDS: LEVOTHYROXINE SODIUM 0.025 MG TABLET PO SCH (09:09)
[2017-05-17] MEDS: METOPROLOL SUCCINATE 25 MG TAB.SR.24H PO SCH (09:09)
[2017-05-17] MEDS: LEVOTHYROXINE SODIUM 0.1 MG TABLET PO SCH (09:09)
[2017-05-17] MEDS: LUBIPROSTONE 24 MCG CAPSULE PO SCH (09:10)
[2017-05-17] MEDS: DULOXETINE HCL 30 MG CAPSULE.DR PO SCH (09:10)
[2017-05-17] MEDS: BENAZEPRIL HCL 10 MG TABLET PO SCH (09:10)
[2017-05-17] MEDS: CYCLOSPORINE 0.05% OPH EMULSIO 0.4 ML DROPERETTE OU SCH (09:11)
--- NOTE | 2017-05-17 11:07 | DISCHARGE SUMMARY E ---
Discharge Summary NAME: LAM PETIT : 1945 AGE: 71Y ADMITTED: 05/14/2017 DISCHARGED: 05/17/2017 REASON FOR ADMISSION: Abdominal wall infection. SUMMARY OF HOSPITALIZATION: The patient is a 71-year-old -[place] Island[place] female with a long history of abdominal wall infection, seroma, and complications secondary to abdominal wall reconstruction. She is admitted to the surgicalist service for abdominal wall infection, recurrent. Please see her admission history and physical document for complete records. The patient was kept n.p.o. on IV fluids. The patient was seen by Dr. Chou and felt to require operative drainage. Her Coumadin was held, she was given 2 units of FFP, and taken to the operating room on 05/14/2017 where she underwent drainage of approximately 200 mL of dorian pus from the deep subcutaneous tissue pocket. She had a drain placed, but unfortunately postoperatively, this clogged. The drain was removed and she was converted to limited irrigation and packing with iodoform packing. Cellulitis improved with empiric antibiotic therapy given IV. Over the ensuing days, she was instructed on local wound care, but was somewhat reticent about performing the packing herself nor was a family member or friend available. Intravenous antibiotics were stopped, microbiology of the wound grew no infecting organisms and a gram stain was negative. By the third postoperative day, she was felt to be ready for discharge home. FINAL DIAGNOSIS: Status post drainage of abdominal wall abscess with packing by Dr. Chou. DISPOSITION: Patient can be discharged home to the care of her family, [facility]. She is to resume her preoperative medications, diet, and activity. DICTATING PHYSICIAN: BRITTNEY CHOU M.D. [id number] PHY#: [id number] ID: [id number] JOB#: [id number] ACCT: [id number] cc:Sanchez SMILEY M.D. >
--- NOTE | 2017-05-17 11:57 | PROGRESS NOTE E ---
Progress Note NAME: LAM PETIT : 1945 AGE: 71Y DATE: 05/17/2017 ROOM: 305 ADDENDUM OBJECTIVE: GENERAL: On examination, the patient is moderately obese. She is well groomed and in no acute distress. VITAL SIGNS: She is afebrile with a temperature of 97.8 degrees Fahrenheit, pulse of 68 beats per minute, blood pressure is 126/45, respirations are 20 per minute, and O2 saturations are 98% on room air. HEENT: Head is atraumatic, normocephalic. Eyes: Pupils are equal, round and regular, reactive to light and accommodation. Extraocular movements are normal. There is no conjunctival pallor. There is no scleral icterus. ENT is negative. NECK: Supple. There is no JVD. Carotids are equal. There is no bruit. There is no goiter. There is no lymphadenopathy. Trachea is center. LUNGS: Clear to auscultation and percussion. HEART: S1 and S2 is heard. There is no S3 gallop. There is no S4 gallop. There is a systolic murmur in the left sternal border in the apex. There is no rub. ABDOMEN: Soft, nontender. There is no hepatosplenomegaly. The dressing at the site of the abscess on the right lower abdomen is clean and dry. Bowel sounds are well heard. EXTREMITIES: Femorals are diminished. Leg pulses are diminished. There is no pedal edema. There is no DVT or cellulitis. There is no cyanosis or clubbing. Capillary refill is normal. CENTRAL NERVOUS SYSTEM: The patient is conscious, awake, alert and oriented x3 with no focal deficits. PSYCHIATRIC: The patient's judgment and insight are intact. Her affect is normal. The patient's 24 hour intake has been 1358 mL, output of 500 mL. The patient's blood glucose is 97. IMPRESSION: 1. ABDOMINAL WALL ABSCESS, STATUS POST INCISION AND DRAINAGE. 2. CORONARY ARTERY DISEASE WITH NO ANGINAL SYMPTOMS. 3. HYPERTENSION, WELL CONTROLLED. 4. HISTORY OF SLEEP APNEA, ON CPAP. 5. PAROXYSMAL ATRIAL FIBRILLATION, AT PRESENT REMAINS IN SINUS RHYTHM. 6. HYPOTHYROIDISM. RECOMMENDATIONS: The patient appears to be stable. Would recommend that patient be started back on anticoagulation as well, as soon as possible when safe from a surgical point of view. Continue benazepril, *------*, *------*, and levothyroxine. NOTE: Twenty-five minutes was spent on this patient with more than 50% of the time spent on direct patient care. Medications have been reviewed. We will sign off the case. Will discuss with her surgeon about restarting anticoagulation. DICTATING PHYSICIAN: JEF RODRIGUEZ M.D. [id number] NOA#: [id number] ID: [id number] JOB#: [id number] ACCT: [id number] cc: >
[2017-05-17 14:01] VITALS: BP 110/57
--- NOTE | 2017-05-18 13:51 | PROGRESS NOTE E ---
Progress Note NAME: LAM PETIT : 1945 AGE: 71Y DATE: 05/17/2017 ROOM: 305 SUBJECTIVE: The patient had an incision and drainage for abscess in the right abdominal wall. She states that there were 240 mL of pus removed. She has a packing in there. She denies any chest pain or discomfort. There is no PND, orthopnea, leg edema. Patient remains in sinus rhythm without any recurrence of atrial fibrillation. OBJECTIVE: GENERAL: On examination, the patient is moderately obese, but well groomed, in no acute distress. VITAL SIGNS: She is afebrile with a temperature of 97.8 degrees Fahrenheit, pulse is 68 beats per minute, blood pressure is 126/45, respirations are 20 per minute, O2 saturations are 98% on CPAP. END OF DICTATION DICTATING PHYSICIAN: JEF RODRIGUEZ M.D. [id number] PHY#: [id number] ID: [id number] JOB#: [id number] ACCT: [id number] cc: >
== END 2017-05-17 14:25 | disposition home health service (06) | DRG 581 ==
LOC: ER 19:04 → UNDOADMIN 05-14 01:59 → EH 05-14 01:59 → 3N 05-14 03:15 → EH 05-14 03:16
PROVIDERS: ADMIT Surgery; ATTEND Surgery
PROC: 30233K1 Transfusion of Nonautologous Frozen Plasma into Peripheral Vein, Percutaneous Approach (ICD-10-PCS; 2017-05-14)
PROC: 0W9F00Z Drainage of Abdominal Wall with Drainage Device, Open Approach (ICD-10-PCS; principal; 2017-05-14 15:45)
DX: L02.211 Cutaneous abscess of abdominal wall (principal); I48.2 Chronic atrial fibrillation; I50.9 Heart failure, unspecified; E78.5 Hyperlipidemia, unspecified; J44.9 Chronic obstructive pulmonary disease, unspecified; E11.9 Type 2 diabetes mellitus without complications; M19.90 Unspecified osteoarthritis, unspecified site; E03.9 Hypothyroidism, unspecified; I11.0 Hypertensive heart disease with heart failure; M79.7 Fibromyalgia; B96.89 Other specified bacterial agents as the cause of diseases classified elsewhere; G47.30 Sleep apnea, unspecified; E66.8 Other obesity; Z79.01 Long term (current) use of anticoagulants; Z89.422 Acquired absence of other left toe(s); Z87.891 Personal history of nicotine dependence; Z68.37 Body mass index [BMI] 37.0-37.9, adult
CPT/HCPCS: 36415; 36430; 74177; 800; 80048; 80053; 81001; 82962; 83036; 85025; 85027; 85610; 85730; 86900; 86901; 87040; 87070; 87075; 87077; 87205; 93005; 93010; 99285; A6266; C1729; J2250; J2270; J2704; J3010; J3490; P9017

== ENCOUNTER → 2017-05-24 | Outpatient (CLI) | payer MEDICARE, OTHER ==
[2017-05-24 11:54] LABS: PROTHROMBIN TIME 20.2 SEC (11.4-15.4)
== END ==
LOC: OD 10:10
PROVIDERS: ATTEND Specialist
DX: I48.0 Paroxysmal atrial fibrillation (principal); Z79.01 Long term (current) use of anticoagulants
CPT/HCPCS: 36415; 85610

== ENCOUNTER → 2017-06-07 | Outpatient (CLI) | payer MEDICARE, OTHER ==
[2017-06-07 18:44] LABS: PROTHROMBIN TIME 31.9 SEC (11.4-15.4)
== END ==
LOC: OD 17:51
PROVIDERS: ATTEND Specialist
DX: I48.0 Paroxysmal atrial fibrillation (principal); Z79.01 Long term (current) use of anticoagulants
CPT/HCPCS: 36415; 85610

== ENCOUNTER → 2017-06-14 | Outpatient (CLI) | payer MEDICARE, OTHER ==
--- NOTE | 2017-06-14 16:02 | RADIOLOGY REPORT (SQ) ---
EXAM DESCRIPTION: CT ABD/PELVIS ORAL ONLY COMPLETED DATE/TIME: 06/14/2017 2:27 pm REASON FOR STUDY: ABDOMINAL WALL HERNIA K43.9 VENTRAL HERNIA WITHOUT OBSTRUCTION OR GANGRENE COMPARISON: None. TECHNIQUE: CT scan of the abdomen and pelvis performed without intravenous or oral contrast. Images reviewed with lung, soft tissue, and bone windows. Reconstructed coronal and sagittal MPR images revi ewed. All images stored on PACS. All CT scanners at this facility use dose modulation, iterative reconstruction, and/or weight based d osing when appropriate to reduce radiation dose to as low as reasonably achievable (ALARA). [facility]: Dose Right [facility]: CareDose [facility]: Dose Right [facility]: Teradose 4D [facility]: [employer] RADIATION DOSE: Up-to-date CT equipment and radiation dose reduction techniques were employed. CTDIv ol: 20.0 mGy. DLP: 975 mGy-cm.mGy. LIMITATIONS: 11/30/2016 FINDINGS: LOWER CHEST: Calcified granuloma in the left base. NON-CONTRASTED LIVER, SPLEEN, ADRENALS: Evaluation limited by lack of IV contrast. No identified sign ificant masses. PANCREAS: No masses. No peripancreatic inflammatory changes. GALLBLADDER: Several small gallstones are present. There is no ductal dilatation. RIGHT KIDNEY AND URETER: No suspicious masses. Assessment limited by lack of IV contrast. No signif icant calcifications. No hydronephrosis or hydroureter. LEFT KIDNEY AND URETER: No suspicious masses. Assessment limited by lack of IV contrast. No signifi cant calcifications. No hydronephrosis or hydroureter. AORTA AND RETROPERITONEUM: No aneurysm. No retroperitoneal masses or adenopathy. BOWEL AND PERITONEAL CAVITY: The colon lies between the liver and the abdominal wall. No bowel mass is seen. No inflammatory changes are seen APPENDIX: Surgically absent. PELVIS, BLADDER, AND ABDOMINAL WALL:The urinary bladder is normal. The uterus is absent. There is n o adnexal mass or fluid collection. There is thickening of the anterior abdominal wall, particularly to the right of the midline at the level of the upper pelvis. This thickening extends across the mi dline to the left. There is slight stranding in the subcutaneous fat but there is improvement since the study of November 30. There may be some small defects midline fascia on 43. No large true ventral hernia is seen. The fascia is otherwise intact. The midline fascia does bulge anteriorly through mu ch of the abdomen. BONES: No significant findings. OTHER: No other significant finding. IMPRESSION: 1. No significant ventral hernia is seen as discussed above. The fascia generally abeba ins intact except for very limited area where the fascia becomes indistinct. There is evidence of we akness of the abdominal muscles as characterized by bulging of the midline fascia. 2. There is thickening of the anterior abdominal wall as described. This may represent residual rec tus hematoma or infection. The overall appearance is improved compared to the earlier study. COMMENT: Quality ID # [id number]: Final reports with documentation of one or more dose reduction techniques (e.g., Automated exposure control, adjustment of the mA and/or kV according to patient size, use of iterative reconstruction technique) TECHNICAL DOCUMENTATION: JOB ID: [id number] [employer]- All Rights Reserved
== END ==
LOC: RAD 14:11
PROVIDERS: ATTEND Surgery
DX: K43.9 Ventral hernia without obstruction or gangrene (principal)
CPT/HCPCS: 74176

== ENCOUNTER → 2017-07-05 | Outpatient (CLI) | payer MEDICARE, OTHER ==
[2017-07-05 18:29] LABS: ALANINE AMINOTRANSFERASE 32 U/L (9-52); ALBUMIN 4.4 g/dL (3.5-5.0); ALKALINE PHOSPHATASE 69 U/L (38-126); ANION GAP 12 (5-19); ASPARTATE AMINO TRANSFERASE 22 U/L (14-36); BILIRUBIN,DIRECT 0.3 mg/dL (0.0-0.4); BILIRUBIN,TOTAL 0.5 mg/dL (0.2-1.3); BLOOD UREA NITROGEN 16 mg/dL (7-20); CALCIUM 9.6 mg/dL (8.4-10.2); CARBON DIOXIDE 29 mmol/L (22-30); CHLORIDE 103 mmol/L (98-107); CREATININE RESULT 0.93 mg/dL (0.52-1.25); GLUCOSE 86 mg/dL (75-110); POTASSIUM 4.4 mmol/L (3.6-5.0); SODIUM 143.9 mmol/L (137-145); TOTAL PROTEIN 8.1 g/dL (6.3-8.2)
== END ==
LOC: OD 17:30
PROVIDERS: ATTEND Internal Medicine
DX: I25.118 Atherosclerotic heart disease of native coronary artery with other forms of angina pectoris (principal); I35.0 Nonrheumatic aortic (valve) stenosis; Z79.01 Long term (current) use of anticoagulants; E11.9 Type 2 diabetes mellitus without complications; E78.4 Other hyperlipidemia; G45.9 Transient cerebral ischemic attack, unspecified; I10 Essential (primary) hypertension; R07.2 Precordial pain; Z79.899 Other long term (current) drug therapy
CPT/HCPCS: 36415; 80053

== ENCOUNTER → 2017-07-15 | Outpatient (CLI) | payer MEDICARE, OTHER ==
[2017-07-15 17:54] LABS: PROTHROMBIN TIME 21.6 SEC (11.4-15.4)
[2017-07-15 19:01] LABS: FOLATE 7.68 ng/mL (>2.76)
== END ==
LOC: OD 16:41
PROVIDERS: ATTEND Specialist
DX: G62.9 Polyneuropathy, unspecified (principal); G72.9 Myopathy, unspecified; I48.0 Paroxysmal atrial fibrillation; Z79.01 Long term (current) use of anticoagulants; M54.89 Other dorsalgia
CPT/HCPCS: 36415; 82306; 82607; 82746; 83519; 84439; 84443; 84480; 85610

== ENCOUNTER 2017-07-26 02:47 | Emergency (ER) | payer MEDICARE, OTHER ==
--- NOTE | 2017-07-26 05:39 | ER Document Report ---
ED Medical Screen (RME) - General Chief Complaint: Abdominal Pain Stated Complaint: ABDOMINAL PAIN Time Seen by Provider: 07/26/17 05:32 Notes: 72-year-old female, chief complaint of right mid upper abdominal pain with what she believes is a hernia which has become harder and more red over the past day and a half. Patient reports multiple hernia repairs, she states she had an abdominal abscess drained in December, she is on Coumadin but she has been holding this in preparation for a sciatic nerve injection. She denies vomiting, fever, she has been having bowel movements. TRAVEL OUTSIDE OF THE [place] IN LAST 30 DAYS: No - Related Data Allergies/Adverse Reactions: captopril [Captopril] Allergy (Severe, Verified 09/26/16 12:23) cough thimerosal [From Merthiolate] Allergy (Severe, Verified 09/26/16 12:23) severe rash Past Medical History - Past Medical History Cardiac Medical History: Reports: Hx Atrial Fibrillation - A flutter, Hx Congestive Heart Failure, Hx Hypercholesterolemia, Hx Heart Murmur - req SBE prophylaxis Denies: Hx Coronary Artery Disease, Hx Heart Attack, Hx Hypertension Pulmonary Medical History: Reports: Hx Asthma - COPD, Hx Bronchitis, Hx COPD, Hx Sleep Apnea Denies: Hx Pneumonia, Hx Tuberculosis Neurological Medical History: Denies: Hx Cerebrovascular Accident - QUESTIONABLE FOR STROKE, NEG CT SCAN 2009, Hx Seizures Endocrine Medical History: Reports: Hx Diabetes Mellitus Type 1, Hx Diabetes Mellitus Type 2 Renal/ Medical History: Denies: Hx Peritoneal Dialysis Malignancy Medical History: Reports: Hx Cervical Cancer GI Medical History: Reports: Hx Hiatal Hernia. Denies: Hx Hepatitis, Hx Ulcer Musculoskeltal Medical History: Reports Hx Arthritis, Reports Hx Muscle Weakness - L. upper Skin Medical History: Reports Hx Cellulitis - (neck and shoulder) Psychiatric Medical History: Reports: Hx Depression Infectious Medical History: Denies: Hx Hepatitis Past Surgical History: Reports: Hx Abdominal Surgery - hernia, bowel obstruction , Hx Bowel Surgery, Hx Breast Surgery, Hx Cardiac Catheterization, Hx Gynecologic Surgery - D&C, Hx Herniorrhaphy, Hx Hysterectomy, Hx Open Heart Surgery - CATHS, ABLATION, Hx Oral Surgery, Hx Orthopedic Surgery - R knee, R toe,R knee, Hx Tonsillectomy, Hx Tubal Ligation, Other - Ablation for atrial fibrillation. Denies: Hx Mastectomy, Hx Pacemaker - Immunizations Hx Diphtheria, Pertussis, Tetanus Vaccination: Yes Physical Exam - Abdominal Tenderness: Tender - Right upper abdomen with what appears to be incarcerated hernia which is hard, red, and very tender to palpation. Course - Re-evaluation Re-evalutation: Right upper abdomen with what appears to be incarcerated hernia which is hard, red, and very tender to palpation. No fever, tachycardia, or hypotension. 07/26/17 05:[address] Chou, surgeon calibration checker, he will come evaluate the patient. Labs pending. - Laboratory Result Diagrams: 07/26/17 06:10 07/26/17 06:10 Laboratory results interpreted by me: 07/26/17 07/26/17 07/26/17 05:30 06:10 06:10 Hgb 11.0 L Hct 32.9 L RDW 14.4 H PT Glucose 137 H Urine Protein 30 H Urine Blood MODERATE H Urine Nitrite POSITIVE H Ur Leukocyte Esterase MODERATE H 07/26/17 06:10 Hgb Hct RDW PT 16.5 H Glucose Urine Protein Urine Blood Urine Nitrite Ur Leukocyte Esterase
--- NOTE | 2017-07-26 05:47 | ER Document Report ---
ED GI/ - General TRAVEL OUTSIDE OF THE [place] IN LAST 30 DAYS: No - General Chief Complaint: Abdominal Pain Stated Complaint: ABDOMINAL PAIN Time Seen by Provider: 07/26/17 05:32 Notes: 72-year-old female, chief complaint of right mid upper abdominal pain with what she believes is a hernia which has become harder and more red over the past day and a half. Patient reports multiple hernia repairs, she states she had an abdominal abscess drained in December, she is on Coumadin but she has been holding this in preparation for a sciatic nerve injection. She denies vomiting, fever, she has been having bowel movements. (GERHARD CORDERO) - Related Data Allergies/Adverse Reactions: captopril [Captopril] Allergy (Severe, Verified 09/26/16 12:23) cough thimerosal [From Merthiolate] Allergy (Severe, Verified 09/26/16 12:23) severe rash Past Medical History - Social History Smoking Status: Never Smoker Family History: Hypertension, Other Patient has suicidal ideation: No Patient has homicidal ideation: No - Past Medical History Cardiac Medical History: Reports: Hx Atrial Fibrillation - A flutter, Hx Congestive Heart Failure, Hx Hypercholesterolemia, Hx Heart Murmur - req SBE prophylaxis Denies: Hx Coronary Artery Disease, Hx Heart Attack, Hx Hypertension Pulmonary Medical History: Reports: Hx Asthma - COPD, Hx Bronchitis, Hx COPD, Hx Sleep Apnea Denies: Hx Pneumonia, Hx Tuberculosis Neurological Medical History: Denies: Hx Cerebrovascular Accident - QUESTIONABLE FOR STROKE, NEG CT SCAN 2009, Hx Seizures Endocrine Medical History: Reports: Hx Diabetes Mellitus Type 1, Hx Diabetes Mellitus Type 2 Renal/ Medical History: Denies: Hx Peritoneal Dialysis Malignancy Medical History: Reports: Hx Cervical Cancer GI Medical History: Reports: Hx Hiatal Hernia. Denies: Hx Hepatitis, Hx Ulcer Musculoskeltal Medical History: Reports Hx Arthritis, Reports Hx Muscle Weakness - L. upper Skin Medical History: Reports Hx Cellulitis - (neck and shoulder) Psychiatric Medical History: Reports: Hx Depression Infectious Medical History: Denies: Hx Hepatitis Past Surgical History: Reports: Hx Abdominal Surgery - hernia, bowel obstruction , Hx Bowel Surgery, Hx Breast Surgery, Hx Cardiac Catheterization, Hx Gynecologic Surgery - D&C, Hx Herniorrhaphy, Hx Hysterectomy, Hx Open Heart Surgery - CATHS, ABLATION, Hx Oral Surgery, Hx Orthopedic Surgery - R knee, R toe,R knee, Hx Tonsillectomy, Hx Tubal Ligation, Other - Ablation for atrial fibrillation. Denies: Hx Mastectomy, Hx Pacemaker - Immunizations Hx Diphtheria, Pertussis, Tetanus Vaccination: Yes Hx Pneumococcal Vaccination: 09/06/10 Physical Exam - Abdominal Tenderness: Tender - Hard, erythematous, and very tender right upper abdominal area consistent with hernia, remaining abdomen shows many scars but is otherwise unremarkable Course - Laboratory Result Diagrams: 07/26/17 06:10 07/26/17 06:10 - Re-evaluation Re-evalutation: 07/26/17 05:49 Gerhard Cordero, physicians unit assistant, informed me that the patient may have a incarcerated bowel. I did go evaluate the patient. Patient does have area very concerning for incarcerated hernia on the right side of her abdomen. I told him to immediately call the surgeon. He did speak with Dr. Chou who is going to come down to evaluate the patient. Blood work is being obtained at this time. (ANDREI TURNER) 07/26/17 05:40 Patient's examination is concerning for incarcerated hernia. Call Dr. Chou , surgeon field irrigation worker, he states he will come evaluate the patient. (GERHARD CORDERO)
[2017-07-26] MEDS ORDERED: NORMAL SALINE 1000 ML 1,000 ML IV ONE (06:20)
[2017-07-26 06:30] LABS: AMORPHOUS SEDIMENT,URINE TRACE /HPF; APPEARANCE,URINE SLIGHTLY-CLOUDY; BILIRUBIN,URINE NEGATIVE (NEGATIVE); GLUCOSE, URINE NEGATIVE (NEGATIVE); KETONES,URINE NEGATIVE (NEGATIVE); LEUKOCYTE ESTERASE,URINE MODERATE (NEGATIVE); NITRITE,URINE POSITIVE (NEGATIVE); PROTEIN,URINE 30 mg/dL (NEGATIVE); URINE SPECIFIC GRAVITY 1.011; UROBILINOGEN,URINE NEGATIVE mg/dL (<2.0)
--- NOTE | 2017-07-26 06:32 | PDOC CONSULTATION ---
Consultation Consult Date: 07/26/17 Attending physician:: MARIANNE CORDERO Consult reason:: Abdominal wall abscess History of Present Illness History of Present Illness: LAM PETIT is a 72 year old female is brought by ground rescue although she states she drove herself to the emergency room at [facility] complaining of a several day history of progressive abdominal swelling, redness, low-grade fever, poor appetite and general lethargy. SHe had a sciatic nerve injection planned today by [facility] but decided to come in this morning at approximately 2:00 AM to have her abscess evaluated. The patient is a long history of abdominal wall problems dating back to 2009. She has had abdominal wall reconstruction, multiple abdominal wall drainage procedures, most recently months ago by Dr. Chou at [facility]. Although pus was evacuated from the abdominal wall, her cultures grew no infecting organisms. She clinically improved with IV then oral antibiotics and dressing changes. Past Medical History Cardiac Medical History: Reports: Atrial Fibrillation - A flutter, Congestive Heart Failure, Hyperlipidema, Heart Murmur - req SBE prophylaxis Denies: Coronary Artery Disease, Myocardial Infarction, Hypertension Pulmonary Medical History: Reports: Asthma - COPD, Bronchitis, Chronic Obstructive Pulmonary Disease (COPD), Sleep Apnea Denies: Pneumonia, Tuberculosis Neurological Medical History: Denies: Seizures Endocrine Medical History: Reports: Diabetes Mellitus Type 1, Diabetes Mellitus Type 2 Malignancy Medical History: Reports: Cervical Cancer GI Medical History: Reports: Hiatal Hernia Denies: Hepatitis Musculoskeltal Medical History: Reports: Arthritis Psychiatric Medical History: Reports: Depression Hematology: Reports: Anemia - hx of Denies: Hemophilia, Sickle Cell Disease Past Surgical History Past Surgical History: Reports: 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, Cardiac Catheterization, Herniorrhaphy, Hysterectomy, Orthopedic Surgery - R knee, R toe ,R knee, Tonsillectomy, Tubal Ligation, Other - Ablation for atrial fibrillation Denies: Mastectomy, Pacemaker Social History Smoking Status: Never Smoker Frequency of Alcohol Use: Rare Hx Recreational Drug Use: No Drugs: None Hx Prescription Drug Abuse: No Past Social History Note: Patient lives by herself; reluctant to have home health involved in her care; oxygen to have family members involved in her care Family History Family History: Hypertension, Other Parental Family History Reviewed: Yes Children Family History Reviewed: Yes Sibling(s) Family History Reviewed.: Yes Medication/Allergy Home Medications: Benazepril HCl [Lotensin 10 mg Tablet] 10 mg PO DAILY 05/14/17 Cyclosporine [Restasis Droperette] 1 each OU Q12 05/14/17 Duloxetine HCl [Cymbalta] 60 mg PO DAILY 05/14/17 Escitalopram Oxalate [Lexapro] 5 mg PO QHS 05/14/17 Furosemide [Lasix 20 mg Tablet] 20 mg PO DAILY 05/14/17 Levothyroxine Sodium [Synthroid] 125 mcg PO QAM 05/14/17 Lubiprostone [Amitiza 24 Mcg Capsule] 24 mcg PO BID 05/14/17 Metoprolol Succinate [Toprol Xl 25 mg Tab.sr] 37.5 mg PO DAILY 05/14/17 Montelukast Sodium [Singulair 10 mg Tablet] 10 mg PO QPM 05/14/17 Oxycodone HCl/Acetaminophen [Percocet 5-325 mg Tablet] 1 tab PO BIDP PRN Potassium Chloride 20 meq PO DAILY 05/14/17 Sitagliptin Phosphate [Januvia] 100 mg PO DAILY 05/14/17 Trazodone HCl [Desyrel 50 mg Tablet] 25 mg PO HSP PRN 05/14/17 Warfarin Sodium [Coumadin] 5 mg PO QHS 05/14/17 Allergies/Adverse Reactions: captopril [Captopril] Allergy (Severe, Verified 09/26/16 12:23) cough thimerosal [From Merthiolate] Allergy (Severe, Verified 09/26/16 12:23) severe rash Review of Systems Constitutional: PRESENT: weakness, other - Decreased appetite Eyes: ABSENT: visual disturbances Ears: ABSENT: hearing changes Cardiovascular: PRESENT: other - Denies Respiratory: PRESENT: other - Denies Gastrointestinal: PRESENT: other - Decreased appetite; problems with constipation, chronic Musculoskeletal: PRESENT: other - Chronic pain issues Physical Exam Vital Signs: Intake & Output 07/24/17 07/25/17 07/26/17 06:59 06:59 06:59 Weight 169 kg General appearance: PRESENT: mild distress Head exam: PRESENT: normocephalic Eye exam: PRESENT: EOMI Ear exam: PRESENT: TM's normal bilaterally Respiratory exam: PRESENT: unlabored Cardiovascular exam: PRESENT: other - Slow, irregular Pulses: PRESENT: normal carotid pulses GI/Abdominal exam: PRESENT: other - Notable scars consistent with previous surgery; to the right of midline is a 8 x 12 erythematous tender somewhat fluctuant illness in the subcutaneous space. The infection does not come to ahead. Neurological exam: PRESENT: alert, altered, awake Psychiatric exam: PRESENT: appropriate affect Focused psych exam: PRESENT: other - Appropriate Skin exam: PRESENT: other - See above Assessment & Plan - Diagnosis (1) Abdominal wall abscess Is this a current diagnosis for this admission?: Yes Plan: Clinically based on physical examination this project internship. Likely recurrent abscess, historically sterile based on previous microbiologic analysis. Plan: 1. Await laboratory results 2. She may be amenable to bedside percutaneous ultrasound directed aspiration and drainage procedure however may require a visit to the operating room to execute this. 3. We have completed a surgical consultation; surgicalist of the day will follow up with patient this morning. (2) Chronic atrial fibrillation Is this a current diagnosis for this admission?: Yes Plan: Patient on metoprolol tartrate and Coumadin; the latter being held in anticipation of percutaneous injection therapy today which will be canceled due to normal wall infection (3) Anticoagulated Is this a current diagnosis for this admission?: Yes Plan: On Coumadin, but off last several days in anticipation of injection. We will check coags. - Time Time Spent: 30 to 50 Minutes Critical Time spent with patient: Less than 15 minutes Anticipated discharge: Home - Inpatient Certification Based on my medical assessment, after consideration of the patient's comorbidities, presenting symptoms, or acuity I expect that the services needed warrant INPATIENT care.: Yes I certify that my determination is in accordance with my understanding of Medicare's requirements for reasonable and necessary INPATIENT services [42 CFR 412.3e].: Yes Medical Necessity: Need For IV Fluids
[2017-07-26 06:33] LABS: ABSOLUTE EOSINOPHILS # (AUTO) 0.3 10^3/uL (0.0-0.6); ABSOLUTE LYMPHOCYTES (AUTO) 1.2 10^3/uL (0.5-4.7); ABSOLUTE MONOCYTES (AUTO) 0.6 10^3/uL (0.1-1.4); ABSOLUTE NEUT (AUTO) 4.6 10^3/uL (1.7-8.2); BASOPHILS % (AUTO) 0.6 % (0-2); HEMATOCRIT 32.9 % (36.0-47.0); HGB HCT DIFFERENCE 0.1; LYMPHOCYTES % (AUTO) 17.9 % (13-45); MEAN CORPUSCULAR HEMOGLOBIN 29.2 pg (27.0-33.4); MEAN CORPUSCULAR HGB CONC 33.5 g/dL (32.0-36.0); MEAN CORPUSCULAR VOLUME 87 fl (80-97); MONOCYTES % (AUTO) 8.4 % (3-13); RED BLOOD COUNT 3.78 10^6/uL (3.72-5.28); RED CELL DISTRIBUTION WIDTH 14.4 % (11.5-14.0); SEGMENTED NEUTROPHILS % (AUTO) 69.1 % (42-78); WHITE BLOOD COUNT 6.7 10^3/uL (4.0-10.5)
[2017-07-26 06:43] LABS: PROTHROMBIN TIME 16.5 SEC (11.4-15.4)
[2017-07-26] MEDS ORDERED: CLINDAMYCIN 300 MG/D5W RTU 300 MG/50 ML RTUPB IV ONE (06:44)
[2017-07-26] MEDS ORDERED: MORPHINE SULFATE 10 MG/ML INJ IV ONE (06:45)
[2017-07-26 06:47] LABS: ALANINE AMINOTRANSFERASE 36 U/L (9-52); ALBUMIN 3.8 g/dL (3.5-5.0); ALKALINE PHOSPHATASE 75 U/L (38-126); ANION GAP 12 (5-19); ASPARTATE AMINO TRANSFERASE 15 U/L (14-36); BILIRUBIN,DIRECT 0.4 mg/dL (0.0-0.4); BILIRUBIN,TOTAL 0.6 mg/dL (0.2-1.3); BLOOD UREA NITROGEN 14 mg/dL (7-20); CALCIUM 9.3 mg/dL (8.4-10.2); CARBON DIOXIDE 28 mmol/L (22-30); CHLORIDE 102 mmol/L (98-107); CREATININE RESULT 0.91 mg/dL (0.52-1.25); GLUCOSE 137 mg/dL (75-110); LIPASE 184.1 U/L (23-300); SODIUM 141.7 mmol/L (137-145); TOTAL PROTEIN 7.2 g/dL (6.3-8.2)
--- NOTE | 2017-07-26 09:55 | RADIOLOGY REPORT (SQ) ---
EXAM DESCRIPTION: CT ABD/PELVIS WITH IV ONLY COMPLETED DATE/TIME: 07/26/2017 9:41 am REASON FOR STUDY: abd mass Right COMPARISON: 06/14/2017 TECHNIQUE: CT scan of the abdomen and pelvis performed using helical scanning technique with dynamic intravenous contrast injection. No oral contrast. Images reviewed with lung, soft tissue, and bone windows. Reconstructed coronal and sagittal MPR images reviewed. Delayed images for evaluation of the urinary system also acquired. All images stored on PACS. All CT scanners at this facility use dose modulation, iterative reconstruction, and/or weight based d osing when appropriate to reduce radiation dose to as low as reasonably achievable (ALARA). [facility]: Dose Right [facility]: CareDose [facility]: Dose Right [facility]: Teradose 4D [facility]: [employer] CONTRAST TYPE AND DOSE: contrast/concentration: Isovue 370.00 mg/ml; Total Contrast Delivered: 100.0 ml; Total Saline Delivered: 52.9 ml RENAL FUNCTION: BUN 14 creatinine 0.9 RADIATION DOSE: Up-to-date CT equipment and radiation dose reduction techniques were employed. CTDIv ol: 20.0 - 21.6 mGy. DLP: 1889 mGy-cm.. LIMITATIONS: None. FINDINGS: LOWER CHEST: Cardiomegaly. LIVER: Normal size. No masses. No dilated ducts. SPLEEN: Normal size. No focal lesions. PANCREAS: No masses. No significant calcifications. No adjacent inflammation or peripancreatic fluid collections. Pancreatic duct not dilated. GALLBLADDER: Gallstones. No inflammatory changes to suggest cholecystitis. ADRENAL GLANDS: No significant masses or asymmetry. RIGHT KIDNEY AND URETER: No solid masses. No significant calcifications. No hydronephrosis or hyd roureter. LEFT KIDNEY AND URETER: No solid masses. No significant calcifications. No hydronephrosis or hydr oureter. AORTA AND VESSELS: No aneurysm. RETROPERITONEUM: No retroperitoneal adenopathy, hemorrhage or masses. BOWEL AND PERITONEAL CAVITY: No masses or inflammatory changes. No free fluid or peritoneal masses. APPENDIX: Normal. PELVIS: No mass. No free fluid. Normal bladder. ABDOMINAL WALL: Unchanged small anterior abdominal wall hernia. Chronic inflammatory changes associa mena with anterior abdominal wall hernia mesh. 2.4 x 7.1 cm superficial fluid collection. BONES: No acute findings. OTHER: No other significant finding. IMPRESSION: Chronic inflammatory changes associated with anterior abdominal wall mesh. Interval dev elopment of small superficial fluid collection. TECHNICAL DOCUMENTATION: JOB ID: [id number] Quality ID # [id number]: Final reports with documentation of one or more dose reduction techniques (e.g., Au tomated exposure control, adjustment of the mA and/or kV according to patient size, use of iterative reconstruction technique) 2010 [employer]- All Rights Reserved
[2017-07-26] MEDS ORDERED: HYDROMORPHONE HCL INJ/PF 2 MG/ML AMPULE IV ONE (11:05)
--- NOTE | 2017-07-26 11:17 | ER Document Report ---
ED General - General Chief Complaint: Abdominal Pain Stated Complaint: ABDOMINAL PAIN Time Seen by Provider: 07/26/17 05:32 Mode of Arrival: Ambulatory Information source: Patient Notes: 72-year-old female presents with complaints of an abscess to her abdomen. Patient admits that is tender to palpation. Patient has had previous abscess in the past, notes that she has also had multiple hernia repairs. Patient requests to be discharged so she can go on her flight tomorrow. Notes that her urologist placed a Villagran in her for comfort TRAVEL OUTSIDE OF THE [place] IN LAST 30 DAYS: No - HPI Onset: Last week Onset/Duration: Persistent, Worse Quality of pain: Achy Severity: Mild Pain Level: 1 Associated symptoms: Other Exacerbated by: Denies Relieved by: Denies Similar symptoms previously: Yes Recently seen / treated by doctor: No - Related Data Allergies/Adverse Reactions: captopril [Captopril] Allergy (Severe, Verified 09/26/16 12:23) cough thimerosal [From Merthiolate] Allergy (Severe, Verified 09/26/16 12:23) severe rash Past Medical History - Social History Smoking Status: Never Smoker Cigarette use (# per day): No Chew tobacco use (# tins/day): No Smoking Education Provided: No Family History: Hypertension, Other Patient has suicidal ideation: No Patient has homicidal ideation: No - Past Medical History Cardiac Medical History: Reports: Hx Atrial Fibrillation - A flutter, Hx Congestive Heart Failure, Hx Hypercholesterolemia, Hx Heart Murmur - req SBE prophylaxis Denies: Hx Coronary Artery Disease, Hx Heart Attack, Hx Hypertension Pulmonary Medical History: Reports: Hx Asthma - COPD, Hx Bronchitis, Hx COPD, Hx Sleep Apnea Denies: Hx Pneumonia, Hx Tuberculosis Neurological Medical History: Denies: Hx Cerebrovascular Accident - QUESTIONABLE FOR STROKE, NEG CT SCAN 2009, Hx Seizures Endocrine Medical History: Reports: Hx Diabetes Mellitus Type 1, Hx Diabetes Mellitus Type 2 Renal/ Medical History: Denies: Hx Peritoneal Dialysis Malignancy Medical History: Reports: Hx Cervical Cancer GI Medical History: Reports: Hx Hiatal Hernia. Denies: Hx Hepatitis, Hx Ulcer Musculoskeltal Medical History: Reports Hx Arthritis, Reports Hx Muscle Weakness - L. upper Skin Medical History: Reports Hx Cellulitis - (neck and shoulder) Psychiatric Medical History: Reports: Hx Depression Infectious Medical History: Denies: Hx Hepatitis Past Surgical History: Reports: Hx Abdominal Surgery - hernia, bowel obstruction , Hx Bowel Surgery, Hx Breast Surgery, Hx Cardiac Catheterization, Hx Gynecologic Surgery - D&C, Hx Herniorrhaphy, Hx Hysterectomy, Hx Open Heart Surgery - CATHS, ABLATION, Hx Oral Surgery, Hx Orthopedic Surgery - R knee, R toe,R knee, Hx Tonsillectomy, Hx Tubal Ligation, Other - Ablation for atrial fibrillation. Denies: Hx Mastectomy, Hx Pacemaker - Immunizations Hx Diphtheria, Pertussis, Tetanus Vaccination: Yes Hx Pneumococcal Vaccination: 09/06/10 Review of Systems - Review of Systems Notes: REVIEW OF SYSTEMS: CONSTITUTIONAL : Denies fever, chills, or sweats. Denies recent illness. EENT: Denies eye, ear, throat, or mouth pain or symptoms. Denies nasal or sinus congestion or discharge. Denies throat, tongue, or mouth swelling or difficulty swallowing. CARDIOVASCULAR: Denies chest pain. Denies palpitations or racing or irregular heart beat. Denies ankle edema. RESPIRATORY: Denies cough, cold, or chest congestion. Denies shortness of breath, difficulty breathing, or wheezing. GASTROINTESTINAL: Admits to superficial mass on abdomen GENITOURINARY: Denies difficulty urinating, painful urination, burning, frequency, blood in urine, or discharge. FEMALE GENITOURINARY: Denies vaginal bleeding, heavy or abnormal periods, irregular periods. Denies vaginal discharge or odor. MUSCULOSKELETAL: Denies back or neck pain or stiffness. Denies joint pain or swelling. SKIN: Denies rash, lesions or sores. HEMATOLOGIC : Denies easy bruising or bleeding. LYMPHATIC: Denies swollen, enlarged glands. NEUROLOGICAL: Denies confusion or altered mental status. Denies passing out or loss of consciousness. Denies dizziness or lightheadedness. Denies headache. Denies weakness or paralysis or loss of use of either side. Denies problems with gait or speech. Denies sensory loss, numbness, or tingling. Denies seizures. PSYCHIATRIC: Denies anxiety or stress. Denies depression, suicidal ideation, or homicidal ideation. ALL OTHER SYSTEMS REVIEWED AND NEGATIVE. PHYSICAL EXAMINATION: GENERAL: Well-appearing, well-nourished and in no acute distress. HEAD: Atraumatic, normocephalic. EYES: Pupils equal round and reactive to light, extraocular movements intact, conjunctiva are normal. ENT: Nares patent, oropharynx clear without exudates. Moist mucous membranes. NECK: Normal range of motion, supple without lymphadenopathy LUNGS: Breath sounds clear to auscultation bilaterally and equal. No wheezes rales or rhonchi. HEART: Regular rate and rhythm without murmurs ABDOMEN: Soft,tender mass just right of the umbilicus , 6x8 cm erythemetous multiple surgical incisions scar tissue noted on abdomen Female : deferred Musculoskeletal: Normal range of motion, no pitting or edema. No cyanosis. NEUROLOGICAL: Cranial nerves grossly intact. Normal speech, normal gait. Normal sensory, motor exams PSYCH: Normal mood, normal affect. Dictation was performed using Inside voice recognition software Physical Exam - Vital signs Vitals: Pulse Resp BP Pulse Ox 80 20 135/66 H 100 07/26/17 07:00 07/26/17 07:00 07/26/17 07:00 07/26/17 07:00 Course - Re-evaluation Re-evalutation: 07/26/17 17:20 Patient is initially been seen by mid-level and I did take over care of the patient, I did speak with the surgical list, he agrees that the patient will require incision and drainage, he did have a drain placed under CT guidance. He does request patient to be discharged home with antibiotics. Patient otherwise looks well is in no distress is very happy that she gets to go home since she wishes to go on a flight, I did explain to her my strict return precautions and she states she understands After performing a Medical Screening Examination, I estimate there is LOW risk for OPEN FRACTURE, COMPARTMENT SYNDROME, TENDON RUPTURE, ACUTE NEUROVASCULAR INJURY, or RETAINED FOREIGN BODY, thus I consider the discharge disposition reasonable. Also, there is no evidence or peritonitis, sepsis, or toxicity. I have reevaluated this patient multiple times and no significant life threatening changes are noted. The patient and I have discussed the diagnosis and risks, and we agree with discharging home with close follow-up with the understanding that symptoms and presentations can change. We also discussed returning to the Emergency Department immediately if new or worsening symptoms occur. We have discussed the symptoms which are most concerning (e.g., changing or worsening pain, fever, numbness, weakness, cool or painful digits) that necessitate immediate return. - Vital Signs Vital signs: Temp Pulse Resp BP Pulse Ox 67 20 108/81 96 07/26/17 08:00 07/26/17 13:01 07/26/17 13:01 07/26/17 13:01 - Laboratory Result Diagrams: 07/26/17 06:10 07/26/17 06:10 Laboratory results interpreted by me: 07/26/17 07/26/17 07/26/17 05:30 06:10 06:10 Hgb 11.0 L Hct 32.9 L RDW 14.4 H PT APTT Glucose 137 H Urine Protein 30 H Urine Blood MODERATE H Urine Nitrite POSITIVE H Ur Leukocyte Esterase MODERATE H 07/26/17 07/26/17 06:10 06:10 Hgb Hct RDW PT 16.5 H APTT 44.6 H Glucose Urine Protein Urine Blood Urine Nitrite Ur Leukocyte Esterase - Diagnostic Test Radiology reviewed: Image reviewed, Reports reviewed Discharge - Discharge Clinical Impression: Abscess Condition: Stable Disposition: HOME, SELF-CARE Instructions: Post Incision and Drainage Additional Instructions: Follow up with your physician tomorrow for further care or return to the ED IMMEDIATELY if symptoms worsen or new concerns occur. If you cannot afford to follow up with your primary care physician a list of low cost clinics have been provided at the end of your discharge papers as well. Prescriptions: Clindamycin HCl 300 mg PO Q6 #40 capsule
[2017-07-26] MEDS ORDERED: FENTANYL CITRATE INJ/PF 100 MCG/2 ML AMPUL ONE (11:22)
--- NOTE | 2017-07-26 13:27 | RADIOLOGY REPORT (SQ) ---
EXAM DESCRIPTION: CT FLUID DRAINAGE WITH CATH COMPLETED DATE/TIME: 07/26/2017 12:26 pm REASON FOR STUDY: Recurrent Anterior abdominal wall Seroma COMPARISON: CT abdomen pelvis 07/26/2017, 07/15/2017, 05/13/2017, 04/12/2017, 11/30/2016 TECHNIQUE: CT guided drainage of the superficial anterior abdominal wall fluid collection performed with IV pain control with fentanyl. CT Fluoroscopy Time: 4.[address] scanners at this facility use dose modulation, iterative reconstruction, and/or weight based d osing when appropriate to reduce radiation dose to as low as reasonably achievable (ALARA). [facility]: Dose Right [facility]: CareDose [facility]: Dose Right [facility]: Teradose 4D [facility]: [employer] RADIATION DOSE: Up-to-date CT equipment and radiation dose reduction techniques were employed. CTDI vol: 4.0 - 20.2 mGy. DLP: 416 mGy-cm.mGy. FINDINGS: The procedure was discussed with the patient and the patient agreed to the procedure. Prio r to the procedure, a time out was performed to verify the patient's identity and planned procedure. A surgeons requests drainage of a superficial right anterior abdominal wall fluid collection. Milind barrett has a right rectus sheath chronic seroma with peripheral calcification. This was not drained. IV pain control was administered and physician direction by the registered nurse using 25 micrograms of fentanyl. Physiologic monitoring was provided before, during, and after sedation. The total sedation time was not applicable, IV pain medicine only. Documentation face to face time, the performing proceduralist, spent monitoring the patient: [address] scanning was performed to localize the percutaneous site for the drainage catheter savage cement approach. After sterile skin prep and local lidocaine for skin and deep tissue anesthesia, an 18 gauge 7 cm nee dle was used to access the superficial right anterior abdominal wall fluid collection. Prompt return of purulent material, specimens sent for Gram stain, culture and sensitivity. A 0.38 guidewire was placed through the needle into the superficial anterior abdominal wall fluid collection, needle withd rawn. 8 Turkmen dilator placed. After dilatation of the soft tissue tract and removal of the dilator , an 8 Turkmen locking pigtail catheter was placed, with the pigtail loop in the fluid collection. Ca theter was flushed with 10 mL of sterile saline. Catheter was [facility] to the [facility] was secured to the patient's skin with a hollyhesive dressing. There were no immediate complications. IMPRESSION: CT GUIDED 8 Turkmen pigtail catheter drainage catheter placement into superficial right a nterior abdominal wall fluid collection. Specimen of aspirated fluid sent for Gram stain culture and sensitivity. No immediate complication. COMMENT: Quality ID [id number]: Final reports for procedures using fluoroscopy that document radiation exp osure indices, or exposure time and number of fluorographic images (if radiation exposure indices are not available) Patient medication list reviewed: Yes- Quality ID# [id number]:Eligible professional attests to documenting i n the medical record they obtained, updated, or reviewed the patient's current medications.. TECHNICAL DOCUMENTATION: JOB ID: [id number] Quality ID# [id number]: Final reports with documentation of one or more dose reduction techniques (e.g., Aut omated exposure control, adjustment of the mA and/or kV according to patient size, use of iterative r econstruction technique) 2010 [employer]- All Rights Reserved
[2017-07-26 13:35] VITALS: BP 108/81
--- NOTE | 2017-07-26 17:56 | PDOC CONSULTATION ---
Consultation Consult Date: 07/26/17 Attending physician:: ELEUTERIO KRISHNAMURTHY Consult reason:: Recurrent Anterior abdominal wall fluid collection History of Present Illness Patient complains of: recurrent swelling and discomfort in the right paraumbilical abdominal wall History of Present Illness: this is a 72 yr old female well-known to the surgical service here who presents with recurrent swelling in the right side of the anterior abdominal wall. She has had multiple prior anterior abdominal wall hernia repairs and prior drainage of seroma of the anterior abdominal wall - culturers were negative. Her last seroma drainage was only a few months ago. She noticed recurrent swelling of the abdominal wall this time somewhat slightly superior to the site of prior drainage. She was brought to the ER where a CT abdomen revealed a new fluid collection superior and superficial to the smaller old chronic fluid collection she has. She denies fever, nausea, vomiting, constipation or generalized abdominal distension otherwise Past Medical History Cardiac Medical History: Reports: Atrial Fibrillation - A flutter, Congestive Heart Failure, Hyperlipidema, Heart Murmur - req SBE prophylaxis Denies: Coronary Artery Disease, Myocardial Infarction, Hypertension Pulmonary Medical History: Reports: Asthma - COPD, Bronchitis, Chronic Obstructive Pulmonary Disease (COPD), Sleep Apnea Denies: Pneumonia, Tuberculosis Neurological Medical History: Denies: Seizures Endocrine Medical History: Reports: Diabetes Mellitus Type 1, Diabetes Mellitus Type 2 Malignancy Medical History: Reports: Cervical Cancer GI Medical History: Reports: Hiatal Hernia Denies: Hepatitis Musculoskeltal Medical History: Reports: Arthritis Psychiatric Medical History: Reports: Depression Hematology: Reports: Anemia - hx of Denies: Hemophilia, Sickle Cell Disease Past Surgical History Past Surgical History: Reports: 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, Cardiac Catheterization, Herniorrhaphy, Hysterectomy, Orthopedic Surgery - R knee, R toe ,R knee, Tonsillectomy, Tubal Ligation, Other - Ablation for atrial fibrillation Denies: Mastectomy, Pacemaker Social History Smoking Status: Never Smoker Frequency of Alcohol Use: Rare Hx Recreational Drug Use: No Drugs: None Hx Prescription Drug Abuse: No Family History Family History: Hypertension, Other Parental Family History Reviewed: No Children Family History Reviewed: No Sibling(s) Family History Reviewed.: No Medication/Allergy Home Medications: Benazepril HCl [Lotensin 10 mg Tablet] 10 mg PO DAILY 05/14/17 Cyclosporine [Restasis Droperette] 1 each OU Q12 05/14/17 Duloxetine HCl [Cymbalta] 60 mg PO DAILY 05/14/17 Escitalopram Oxalate [Lexapro] 5 mg PO QHS 05/14/17 Furosemide [Lasix 20 mg Tablet] 20 mg PO DAILY 05/14/17 Levothyroxine Sodium [Synthroid] 125 mcg PO QAM 05/14/17 Lubiprostone [Amitiza 24 Mcg Capsule] 24 mcg PO BID 05/14/17 Metoprolol Succinate [Toprol Xl 25 mg Tab.sr] 37.5 mg PO DAILY 05/14/17 Montelukast Sodium [Singulair 10 mg Tablet] 10 mg PO QPM 05/14/17 Oxycodone HCl/Acetaminophen [Percocet 5-325 mg Tablet] 1 tab PO BIDP PRN Potassium Chloride 20 meq PO DAILY 05/14/17 Sitagliptin Phosphate [Januvia] 100 mg PO DAILY 05/14/17 Trazodone HCl [Desyrel 50 mg Tablet] 25 mg PO HSP PRN 05/14/17 Warfarin Sodium [Coumadin] 5 mg PO QHS 05/14/17 Clindamycin HCl 300 mg PO Q6 #40 capsule 07/26/17 Allergies/Adverse Reactions: captopril [Captopril] Allergy (Severe, Verified 09/26/16 12:23) cough thimerosal [From Merthiolate] Allergy (Severe, Verified 09/26/16 12:23) severe rash Review of Systems Constitutional: ABSENT: chills, fever(s), headache(s), weight gain, weight loss Eyes: ABSENT: visual disturbances Ears: ABSENT: hearing changes Cardiovascular: ABSENT: chest pain, dyspnea on exertion, edema, orthropnea, palpitations Respiratory: ABSENT: cough, hemoptysis Gastrointestinal: ABSENT: abdominal pain, constipation, diarrhea, hematemesis, hematochezia, nausea, vomiting Genitourinary: ABSENT: dysuria, hematuria Musculoskeletal: ABSENT: joint swelling Integumentary: ABSENT: rash, wounds Neurological: ABSENT: abnormal gait, abnormal speech, confusion, dizziness, focal weakness, syncope Psychiatric: ABSENT: anxiety, depression, homidical ideation, suicidal ideation Endocrine: ABSENT: cold intolerance, heat intolerance, polydipsia, polyuria Hematologic/Lymphatic: ABSENT: easy bleeding, easy bruising Physical Exam Vital Signs: Temp Pulse Resp BP Pulse Ox 67 20 108/81 96 11/20/17 08:00 07/26/17 13:01 07/26/17 13:01 07/26/17 13:01 Intake & Output 07/25/17 07/26/17 07/27/17 06:59 06:59 06:59 Output Total 925 Balance -925 Weight 169 kg General appearance: PRESENT: no acute distress Head exam: PRESENT: atraumatic Eye exam: PRESENT: conjunctiva pink Neck exam: PRESENT: full ROM Respiratory exam: PRESENT: clear to auscultation michele Cardiovascular exam: PRESENT: RRR, +S1, +S2 GI/Abdominal exam: PRESENT: other - Multiple scars on the anterior abdominal wall. There is an 8cm x 10cm swelling on the right upper paraumbilical area of the anterior abdominal wall with overlying slight erythema. It is tense and cystic. Gentrourinary exam: PRESENT: indwelling catheter Neurological exam: PRESENT: alert, oriented to person, oriented to place, oriented to time Psychiatric exam: PRESENT: normal mood Results Laboratory Results: 07/26/17 06:10 07/26/17 06:10 07/26/17 07/26/17 07/26/17 05:30 06:10 06:10 WBC 6.7 RBC 3.78 Hgb 11.0 L Hct 32.9 L MCV 87 MCH 29.2 MCHC 33.5 RDW 14.4 H Plt Count 271 Seg Neutrophils % 69.1 Lymphocytes % 17.9 Monocytes % 8.4 Eosinophils % 4.0 Basophils % 0.6 Absolute Neutrophils 4.6 Absolute Lymphocytes 1.2 Absolute Monocytes 0.6 Absolute Eosinophils 0.3 Absolute Basophils 0.0 Sodium 141.7 Potassium 4.0 Chloride 102 Carbon Dioxide 28 Anion Gap 12 BUN 14 Creatinine 0.91 Est GFR ( Amer) > 60 Est GFR (Non-Af Amer) > 60 Glucose 137 H Lactic Acid Calcium 9.3 Total Bilirubin 0.6 AST 15 ALT 36 Alkaline Phosphatase 75 Total Protein 7.2 Albumin 3.8 Lipase 184.1 Urine Color YELLOW Urine Appearance SLIGHTLY-CLOUDY Urine pH 6.0 Ur Specific Donaldson 1.011 Urine Protein 30 H Urine Glucose (UA) NEGATIVE Urine Ketones NEGATIVE Urine Blood MODERATE H Urine Nitrite POSITIVE H Ur Leukocyte Esterase MODERATE H Urine WBC (Auto) 44 Urine RBC (Auto) 56 07/26/17 06:10 WBC RBC Hgb Hct MCV MCH MCHC RDW Plt Count Seg Neutrophils % Lymphocytes % Monocytes % Eosinophils % Basophils % Absolute Neutrophils Absolute Lymphocytes Absolute Monocytes Absolute Eosinophils Absolute Basophils Sodium Potassium Chloride Carbon Dioxide Anion Gap BUN Creatinine Est GFR ( Amer) Est GFR (Non-Af Amer) Glucose Lactic Acid 1.0 Calcium Total Bilirubin AST ALT Alkaline Phosphatase Total Protein Albumin Lipase Urine Color Urine Appearance Urine pH Ur Specific Donaldson Urine Protein Urine Glucose (UA) Urine Ketones Urine Blood Urine Nitrite Ur Leukocyte Esterase Urine WBC (Auto) Urine RBC (Auto) Impressions: Drainage Catheter Insertion 07/26/17 00:00 IMPRESSION: CT GUIDED 8 Vietnamese pigtail catheter drainage catheter placement into superficial right anterior abdominal wall fluid collection. Specimen of aspirated fluid sent for Gram stain culture and sensitivity. No immediate complication. Abdomen/Pelvis CT 07/26/17 08:39 IMPRESSION: Chronic inflammatory changes associated with anterior abdominal wall mesh. Interval development of small superficial fluid collection. Assessment & Plan - Diagnosis (1) Abdominal wall seroma Is this a current diagnosis for this admission?: Yes Plan: The patient will have a CT-guided drainage of the seroma Commence oral antibiotics while waiting for the cultures She will follow up in the surgical outpatient - Time Time Spent: 30 to 50 Minutes Anticipated discharge: Home
--- NOTE | 2017-07-30 12:48 | ER Document Report ---
Doctor's Note Notes: 07/30/17 12:47 Approached by Marylin states that lab notified her of the microbiology findings for the patient's wound and urinalysis. Patient is time is currently on clindamycin which would not cover the E. coli. Review of antibiotic guidebook shows that possibly Keflex will cover not only the E. coli be the other bacteria seen in the wound. Therefore we will start patient on Keflex.
== END 2017-07-26 13:44 | disposition home or self-care (01) ==
LOC: ER 02:47
DX: L76.34 Postprocedural seroma of skin and subcutaneous tissue following other procedure (principal); Y83.9 Surgical procedure, unspecified as the cause of abnormal reaction of the patient, or of later complication, without mention of misadventure at the time of the procedure; I48.91 Unspecified atrial fibrillation; Z79.02 Long term (current) use of antithrombotics/antiplatelets; R10.10 Upper abdominal pain, unspecified; E11.9 Type 2 diabetes mellitus without complications; I50.9 Heart failure, unspecified; E78.5 Hyperlipidemia, unspecified; J44.9 Chronic obstructive pulmonary disease, unspecified; Z85.41 Personal history of malignant neoplasm of cervix uteri; Z90.710 Acquired absence of both cervix and uterus
CPT/HCPCS: 99285; 96361; 51702; 96374; 96375; 36415; 87040; 87086; 87205; 87070; 83605; 83690; 85025; 85610; 85730; 87075; 87077; 87088; 80053; 81001; 87186; 49405; 74177; C1729; C1894; C1769; J3490; J3010; J2270; J1170; J7030

== ENCOUNTER → 2017-09-22 | Outpatient (CLI) | payer MEDICARE, OTHER ==
[2017-09-22 17:03] LABS: INTERNATIONAL RATION (INR) 1.88; PROTHROMBIN TIME 22.7 SEC (11.4-15.4)
== END ==
LOC: OD 16:07
PROVIDERS: ATTEND Specialist
DX: I48.0 Paroxysmal atrial fibrillation (principal); Z79.01 Long term (current) use of anticoagulants
CPT/HCPCS: 36415; 85610

== ENCOUNTER → 2017-10-21 | Outpatient (CLI) | payer MEDICARE, OTHER ==
--- NOTE | 2017-10-21 09:10 | RADIOLOGY REPORT (SQ) ---
EXAM DESCRIPTION: CT ABD/PELVIS WITH IV ORAL COMPLETED DATE/TIME: 10/21/2017 8:43 am REASON FOR STUDY: CUTANEOUS ABSCESS OF ABD WALL (L02.211), FISTULA OF INTESTINE (K63.2) L02.211 CUT ANEOUS ABSCESS OF ABDOMINAL WALL COMPARISON: 06/14/2017 TECHNIQUE: CT scan of the abdomen and pelvis performed with intravenous and oral contrast using alva huber scanning technique with dynamic intravenous contrast injection. Images reviewed with lung, soft t issue, and bone windows. Reconstructed coronal and sagittal MPR images reviewed. Delayed images for e valuation of the urinary system also acquired. All images stored on PACS. All CT scanners at this facility use dose modulation, iterative reconstruction, and/or weight based d osing when appropriate to reduce radiation dose to as low as reasonably achievable (ALARA). [facility]: Dose Right [facility]: CareDose [facility]: Dose Right [facility]: Teradose 4D [facility]: [employer] CONTRAST TYPE AND DOSE: contrast/concentration: Isovue 370.00 mg/ml; Total Contrast Delivered: 100.0 ml; Total Saline Delivered: 70.0 ml RENAL FUNCTION: Creatinine 1.1 RADIATION DOSE: CT Rad equipment meets quality standard of care and radiation dose reduction techniq ues were employed. CTDIvol: 22.1 - 22.8 mGy. DLP: 2156 mGy-cm. . LIMITATIONS: None. FINDINGS: LOWER CHEST: Calcified granuloma. Cardiomegaly. Mitral annular calcifications. LIVER: Normal size. No masses. No dilated ducts. SPLEEN: Normal size. No focal lesions. PANCREAS: No masses. No significant calcifications. No adjacent inflammation or peripancreatic fluid collections. Pancreatic duct not dilated. GALLBLADDER: Gallstones. No inflammatory changes to suggest cholecystitis. ADRENAL GLANDS: No significant masses or asymmetry. RIGHT KIDNEY AND URETER: No solid masses. No significant calcifications. No hydronephrosis or hyd roureter. LEFT KIDNEY AND URETER: No solid masses. No significant calcifications. No hydronephrosis or hydr oureter. AORTA AND VESSELS: No aneurysm. RETROPERITONEUM: No retroperitoneal adenopathy, hemorrhage or masses. BOWEL AND PERITONEAL CAVITY: No obstruction. No visualized masses. No free fluid. No inflammatory ch anges or thickening of bowel wall. APPENDIX: Surgically absent. PELVIS: No significant masses. Normal bladder. No free fluid. ABDOMINAL WALL: Postsurgical changes from anterior abdominal wall hernia repair. There is unchanged thickening of the subcutaneous tissue adjacent to the surgical mesh. There is diastases of the rectu s musculature. There is anterior bulging of the fascia which is unchanged. No large fascia defect i s identified. BONES: No acute findings. OTHER: No other significant finding. IMPRESSION: Prior anterior abdominal wall herniorrhaphy with overall unchanged appearance since the prior. No large defect is identified. No abscess. TECHNICAL DOCUMENTATION: JOB ID: [id number] Quality ID # [id number]: Final reports with documentation of one or more dose reduction techniques (e.g., Au tomated exposure control, adjustment of the mA and/or kV according to patient size, use of iterative reconstruction technique) 2010 [employer]- All Rights Reserved
== END ==
LOC: RAD 07:54
PROVIDERS: ATTEND Surgery
DX: L02.211 Cutaneous abscess of abdominal wall (principal); K63.2 Fistula of intestine
CPT/HCPCS: 74177; 82565

== ENCOUNTER → 2017-11-02 | Outpatient (CLI) | payer MEDICARE, OTHER ==
[2017-11-02 15:11] LABS: INTERNATIONAL RATION (INR) 1.12; PARTIAL THROMBOPLASTIN TIME 35.5 SEC (23.5-35.8); PROTHROMBIN TIME 15.2 SEC (11.4-15.4)
== END ==
LOC: OD 14:00
PROVIDERS: ATTEND Student in an Organized Health Care Education/Training Program
DX: Z51.81 Encounter for therapeutic drug level monitoring (principal); Z79.01 Long term (current) use of anticoagulants
CPT/HCPCS: 36415; 85610; 85730

== ENCOUNTER → 2017-11-30 | Outpatient (CLI) | payer MEDICARE, OTHER ==
[2017-11-30 15:29] LABS: INTERNATIONAL RATION (INR) 2.86; PROTHROMBIN TIME 31.4 SEC (11.4-15.4)
== END ==
LOC: OD 13:13
PROVIDERS: ATTEND Specialist
DX: I48.0 Paroxysmal atrial fibrillation (principal); Z79.01 Long term (current) use of anticoagulants
CPT/HCPCS: 36415; 85610

== ENCOUNTER → 2018-01-24 | Outpatient (CLI) | payer MEDICARE, OTHER ==
[2018-01-24 09:29] LABS: PROTHROMBIN TIME 15.8 SEC (11.4-15.4)
[2018-01-24 09:30] LABS: PARTIAL THROMBOPLASTIN TIME 29.6 SEC (23.5-35.8)
[2018-01-24 09:45] LABS: PROTHROMBIN TIME 15.8 SEC (11.4-15.4)
== END ==
LOC: OD 08:10
PROVIDERS: ATTEND Student in an Organized Health Care Education/Training Program
DX: I48.0 Paroxysmal atrial fibrillation (principal); Z79.01 Long term (current) use of anticoagulants
CPT/HCPCS: 36415; 85610; 85730

== ENCOUNTER → 2018-02-03 | Outpatient (CLI) | payer MEDICARE, OTHER ==
[2018-02-03 18:01] LABS: INTERNATIONAL RATION (INR) 1.57; PROTHROMBIN TIME 19.5 SEC (11.4-15.4)
== END ==
LOC: OD 17:16
PROVIDERS: ATTEND Specialist
DX: I48.0 Paroxysmal atrial fibrillation (principal); Z79.01 Long term (current) use of anticoagulants
CPT/HCPCS: 36415; 85610

== ENCOUNTER → 2018-02-16 | Outpatient (CLI) | payer MEDICARE, OTHER ==
[2018-02-16 18:58] LABS: INTERNATIONAL RATION (INR) 4.94; PROTHROMBIN TIME 48.2 SEC (11.4-15.4)
== END ==
LOC: OD 17:39
PROVIDERS: ATTEND Specialist
DX: I48.0 Paroxysmal atrial fibrillation (principal); Z79.01 Long term (current) use of anticoagulants
CPT/HCPCS: 36415; 85610

== ENCOUNTER 2018-02-22 15:56 | Inpatient (IN) | payer MEDICARE, OTHER ==
[2018-02-22 17:27] LABS: INTERNATIONAL RATION (INR) 3.21; PROTHROMBIN TIME 34.3 SEC (11.4-15.4)
[2018-02-22 17:29] LABS: PARTIAL THROMBOPLASTIN TIME 57.8 SEC (23.5-35.8)
[2018-02-22 17:31] LABS: ALANINE AMINOTRANSFERASE 40 U/L (9-52); ALBUMIN 3.7 g/dL (3.5-5.0); ALKALINE PHOSPHATASE 55 U/L (38-126); ANION GAP 10 (5-19); ASPARTATE AMINO TRANSFERASE 40 U/L (14-36); BILIRUBIN,DIRECT 0.4 mg/dL (0.0-0.4); BILIRUBIN,TOTAL 0.5 mg/dL (0.2-1.3); BLOOD UREA NITROGEN 16 mg/dL (7-20); CALCIUM 9.1 mg/dL (8.4-10.2); CARBON DIOXIDE 28 mmol/L (22-30); CHLORIDE 104 mmol/L (98-107); GLUCOSE 137 mg/dL (75-110); LIPASE 153.8 U/L (23-300); POTASSIUM 3.6 mmol/L (3.6-5.0); SODIUM 141.9 mmol/L (137-145); TOTAL PROTEIN 6.3 g/dL (6.3-8.2)
[2018-02-22 17:32] LABS: MEAN CORPUSCULAR HEMOGLOBIN 29.9 pg (27.0-33.4); MEAN CORPUSCULAR HGB CONC 33.3 g/dL (32.0-36.0); MEAN CORPUSCULAR VOLUME 90 fl (80-97); PLATELET COUNT 306 10^3/uL (150-450); RED BLOOD COUNT 2.56 10^6/uL (3.72-5.28); RED CELL DISTRIBUTION WIDTH 16.9 % (11.5-14.0); WHITE BLOOD COUNT 5.1 10^3/uL (4.0-10.5)
[2018-02-22 17:58] LABS: ABSOLUTE LYMPHOCYTES# (MANUAL) 1.6 10^3/uL (0.5-4.7); ABSOLUTE MONOCYTES # (MANUAL) 0.4 10^3/uL (0.1-1.4); BASOPHILS % (MANUAL) 0 % (0-2); EOSINOPHILS % (MANUAL) 2 % (0-6); LYMPHOCYTES % (MANUAL) 31 % (13-45); METAMYELOCYTES % (MANUAL) 3 % (0); MONOCYTES % (MANUAL) 8 % (3-13); SEGMENTED NEUTROPHILS % (MAN) 56 % (42-78); TOTAL CELLS COUNTED 100
[2018-02-22 17:59] LABS: ANISOCYTOSIS 1+; PLATELET COMMENT ADEQUATE; POLYCHROMASIA SLIGHT
[2018-02-22 18:01] LABS: HEMOGLOBIN 7.7 g/dL (12.0-15.5)
[2018-02-22] MEDS ORDERED: NORMAL SALINE 250 ML IV PRN ×2 (18:32)
[2018-02-22] MEDS ORDERED: PANTOPRAZOLE SODIUM 40 MG VIAL IV ONE (18:56)
[2018-02-22] MEDS ORDERED: ONDANSETRON HCL INJ/PF 4 MG/2 ML SDV IV PRN (20:17)
--- NOTE | 2018-02-22 21:16 | ER Document Report ---
ED General - General Chief Complaint: Black/Tarry Stools Stated Complaint: SHORTNESS OF BREATH Time Seen by Provider: 02/22/18 16:11 TRAVEL OUTSIDE OF THE [place] IN LAST 30 DAYS: No - HPI Patient complains to provider of: Black tarry stools Notes: Patient coming in for evaluation of black stools. Patient states she has a history of black stools no abdominal pain no chest pain however the patient is on Coumadin due to paroxysmal atrial fibrillation. Patient states she was concerned that she was recently evaluated on 0 111 and had blood work performed showing a decrease in her hemoglobin. Patient states is been many years since she received blood transfusion. Patient states approximately 2-4 weeks ago did have a colonoscopy performed by Dr. Mccullough that was otherwise normal. Denies history of diverticulosis diverticulitis otherwise patient denies any symptoms no weakness no dizziness no nausea no vomiting - Related Data Allergies/Adverse Reactions: captopril [Captopril] Allergy (Severe, Verified 09/26/16 12:23) cough thimerosal [From Merthiolate] Allergy (Severe, Verified 09/26/16 12:23) severe rash Past Medical History - Social History Smoking Status: Never Smoker Chew tobacco use (# tins/day): No Frequency of alcohol use: Rare Drug Abuse: None Family History: Hypertension, Other Patient has suicidal ideation: No Patient has homicidal ideation: No - Past Medical History Cardiac Medical History: Reports: Hx Atrial Fibrillation - A flutter, Hx Congestive Heart Failure, Hx Hypercholesterolemia, Hx Heart Murmur - req SBE prophylaxis Denies: Hx Coronary Artery Disease, Hx Heart Attack, Hx Hypertension Pulmonary Medical History: Reports: Hx Asthma - COPD, Hx Bronchitis, Hx COPD, Hx Sleep Apnea Denies: Hx Pneumonia, Hx Tuberculosis Neurological Medical History: Denies: Hx Cerebrovascular Accident - QUESTIONABLE FOR STROKE, NEG CT SCAN 2009, Hx Seizures Endocrine Medical History: Reports: Hx Diabetes Mellitus Type 1, Hx Diabetes Mellitus Type 2 Renal/ Medical History: Denies: Hx Peritoneal Dialysis Malignancy Medical History: Reports: Hx Cervical Cancer GI Medical History: Reports: Hx Hiatal Hernia. Denies: Hx Hepatitis, Hx Ulcer Musculoskeltal Medical History: Reports Hx Arthritis, Reports Hx Muscle Weakness - L. upper Skin Medical History: Reports Hx Cellulitis - (neck and shoulder) Psychiatric Medical History: Reports: Hx Depression Infectious Medical History: Denies: Hx Hepatitis Past Surgical History: Reports: Hx Abdominal Surgery - hernia, bowel obstruction , Hx Bowel Surgery, Hx Breast Surgery, Hx Cardiac Catheterization, Hx Gynecologic Surgery - D&C, Hx Herniorrhaphy, Hx Hysterectomy, Hx Open Heart Surgery - CATHS, ABLATION, Hx Oral Surgery, Hx Orthopedic Surgery - R knee, R toe,R knee, Hx Tonsillectomy, Hx Tubal Ligation, Other - Ablation for atrial fibrillation. Denies: Hx Mastectomy, Hx Pacemaker - Immunizations Hx Diphtheria, Pertussis, Tetanus Vaccination: Yes Hx Pneumococcal Vaccination: 09/06/10 Review of Systems - Review of Systems Constitutional: No symptoms reported EENT: No symptoms reported Cardiovascular: No symptoms reported Respiratory: No symptoms reported Gastrointestinal: Black stools Genitourinary: No symptoms reported Female Genitourinary: No symptoms reported Musculoskeletal: No symptoms reported Skin: No symptoms reported Hematologic/Lymphatic: No symptoms reported Neurological/Psychological: No symptoms reported -: Yes All other systems reviewed and negative Physical Exam - Vital signs Vitals: Resp Pulse Ox 21 H 98 02/22/18 20:00 02/22/18 20:00 Interpretation: Normal - General General appearance: Appears well, Alert - HEENT Head: Normocephalic, Atraumatic Eyes: Normal Pupils: PERRL - Respiratory Respiratory status: No respiratory distress Chest status: Nontender Breath sounds: Normal Chest palpation: Normal - Cardiovascular Rhythm: Regular Heart sounds: Normal auscultation Murmur: No - Abdominal Inspection: Morbidly Obese Distension: No distension Bowel sounds: Normal Tenderness: Nontender Organomegaly: No organomegaly - Back Back: Normal, Nontender - Extremities General upper extremity: Normal inspection, Nontender, Normal color, Normal ROM , Normal temperature General lower extremity: Normal inspection, Nontender, Normal color, Normal ROM , Normal temperature, Normal weight bearing. No: Onesimo's sign - Neurological Neuro grossly intact: Yes Cognition: Normal Orientation: AAOx4 Kim Coma Scale Eye Opening: Spontaneous Kim Coma Scale Verbal: Oriented Kim Coma Scale Motor: Obeys Commands Kim Coma Scale Total: 15 Speech: Normal Motor strength normal: LUE, RUE, LLE, RLE Sensory: Normal - Psychological Associated symptoms: Normal affect, Normal mood - Skin Skin Temperature: Warm Skin Moisture: Dry Skin Color: Normal Course - Re-evaluation Re-evalutation: 02/22/18 22:44 Patient hemoglobin 7.7 with a hematocrit of 23. Occult cord was positive patient's INR was 3.2 discussed with the olive pitter he does agree at this time with blood transfusion however request to hold off on any FFP admission was discussed with the hospitalist service will admit to [facility] - Vital Signs Vital signs: Temp Pulse Resp BP Pulse Ox 26 H 121/57 L 100 02/22/18 22:01 02/22/18 22:01 02/22/18 22:01 - Laboratory Result Diagrams: 02/22/18 21:30 02/22/18 16:57 Laboratory results interpreted by me: 02/22/18 02/22/18 02/22/18 16:57 16:57 16:57 RBC 2.56 L Hgb 7.7 L Hct 23.0 L RDW 16.9 H Metamyelocytes % 3 H PT 34.3 H APTT 57.8 H Est GFR (Non-Af Amer) 56 L Glucose 137 H AST 40 H Crossmatch 02/22/18 16:57 RBC Hgb Hct RDW Metamyelocytes % PT APTT Est GFR (Non-Af Amer) Glucose AST Crossmatch See Detail Discharge - Discharge Clinical Impression: Paroxysmal atrial fibrillation, Anemia requiring transfusions Sleep apnea Qualifiers: Sleep apnea type: unspecified type Qualified Code(s): G47.30 - Sleep apnea, unspecified GI bleed Qualifiers: GI bleed type/associated pathology: unspecified gastrointestinal hemorrhage type Qualified Code(s): K92.2 - Gastrointestinal hemorrhage, unspecified Condition: Good Disposition: ADMITTED INPATIENT Admitting Provider: Hospitalist - [facility] Unit Admitted: [facility]
[2018-02-22 21:45] LABS: ABSOLUTE EOSINOPHILS # (AUTO) 0.1 10^3/uL (0.0-0.6); ABSOLUTE LYMPHOCYTES (AUTO) 1.7 10^3/uL (0.5-4.7); ABSOLUTE MONOCYTES (AUTO) 0.5 10^3/uL (0.1-1.4); ABSOLUTE NEUT (AUTO) 3.5 10^3/uL (1.7-8.2); BASOPHILS % (AUTO) 0.8 % (0-2); HEMATOCRIT 23.8 % (36.0-47.0); LYMPHOCYTES % (AUTO) 28.7 % (13-45); MEAN CORPUSCULAR HGB CONC 33.7 g/dL (32.0-36.0); MEAN CORPUSCULAR VOLUME 89 fl (80-97); MONOCYTES % (AUTO) 9.2 % (3-13); PLATELET COUNT 321 10^3/uL (150-450); RED BLOOD COUNT 2.67 10^6/uL (3.72-5.28); RED CELL DISTRIBUTION WIDTH 16.6 % (11.5-14.0); SEGMENTED NEUTROPHILS % (AUTO) 59.3 % (42-78); TOTAL CELLS COUNTED % (AUTO) 100 %; WHITE BLOOD COUNT 5.8 10^3/uL (4.0-10.5)
--- NOTE | 2018-02-22 21:53 | PDOC CONSULTATION ---
Consultation Consult Date: 02/22/18 Attending physician:: OLIVIA HENRIQUEZ Consult reason:: Gi bleeding. elevated coagulation profile History of Present Illness Admission Date/PCP: 02/22/18 20:23 History of Present Illness: LAM PETIT is a 72 year old female has history of A fib on current anticoagulation patient has anemia complaining of dark stools, apparently saw Dr Liriano recently, patient had negative EGD by report actually her initial BUN/ Creat ratio is normal usually with upper GI bleeding, would have elevated BUN patient has supratherapuetic INR of >3 will need to be corrected for any sort of procedure to be attempted try to get records from previous EGD May need colonoscopy agree with admission and will need to monitor H/H if blood count is decreasing, then would rapidly correct her INR with FFP for more urgent evaluation Past Medical History Cardiac Medical History: Reports: Atrial Fibrillation - A flutter, Congestive Heart Failure, Hyperlipidema, Heart Murmur - req SBE prophylaxis Denies: Coronary Artery Disease, Myocardial Infarction, Hypertension Pulmonary Medical History: Reports: Asthma - COPD, Bronchitis, Chronic Obstructive Pulmonary Disease (COPD), Sleep Apnea Denies: Pneumonia, Tuberculosis Neurological Medical History: Denies: Seizures Endocrine Medical History: Reports: Diabetes Mellitus Type 1, Diabetes Mellitus Type 2 Malignancy Medical History: Reports: Cervical Cancer GI Medical History: Reports: Hiatal Hernia Denies: Hepatitis Musculoskeltal Medical History: Reports: Arthritis Psychiatric Medical History: Reports: Depression Hematology: Reports: Anemia - hx of Denies: Hemophilia, Sickle Cell Disease Past Surgical History Past Surgical History: Reports: 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, Cardiac Catheterization, Herniorrhaphy, Hysterectomy, Orthopedic Surgery - R knee, R toe ,R knee, Tonsillectomy, Tubal Ligation, Other - Ablation for atrial fibrillation Denies: Mastectomy, Pacemaker Social History Smoking Status: Never Smoker Frequency of Alcohol Use: Rare Hx Recreational Drug Use: No Drugs: None Hx Prescription Drug Abuse: No Family History Family History: Hypertension, Other Parental Family History Reviewed: Yes Children Family History Reviewed: Unknown Sibling(s) Family History Reviewed.: Unknown Medication/Allergy Home Medications: Benazepril HCl [Lotensin 10 mg Tablet] 10 mg PO DAILY 05/14/17 Cyclosporine [Restasis Droperette] 1 drop OU Q12 05/14/17 Duloxetine HCl [Cymbalta] 60 mg PO DAILY 05/14/17 Escitalopram Oxalate [Lexapro] 5 mg PO QHS 05/14/17 Furosemide [Lasix 20 mg Tablet] 20 mg PO DAILY 05/14/17 Levothyroxine Sodium [Synthroid] 125 mcg PO QAM 05/14/17 Lubiprostone [Amitiza 24 Mcg Capsule] 24 mcg PO BID 05/14/17 Metoprolol Succinate [Toprol Xl 25 mg Tab.sr] 37.5 mg PO DAILY 05/14/17 Montelukast Sodium [Singulair 10 mg Tablet] 10 mg PO QPM 05/14/17 Oxycodone HCl/Acetaminophen [Percocet 5-325 mg Tablet] 1 tab PO BIDP PRN Potassium Chloride 20 meq PO DAILY 05/14/17 Sitagliptin Phosphate [Januvia] 100 mg PO DAILY 05/14/17 Trazodone HCl [Desyrel 50 mg Tablet] 50 mg PO HSP PRN 05/14/17 Warfarin Sodium [Coumadin] 5 mg PO QHS 05/14/17 Fluticasone Propionate [Flonase Nasal Clark 50 Mcg/Clark 16 gm] 2 spray NAREB Q12 02/22/18 Fluticasone/Salmeterol [Advair 250-50 Diskus 14 Dose/Diskus] 1 inh IH Q12 Allergies/Adverse Reactions: captopril [Captopril] Allergy (Severe, Verified 09/26/16 12:23) cough thimerosal [From Merthiolate] Allergy (Severe, Verified 09/26/16 12:23) severe rash Review of Systems Constitutional: ABSENT: fever(s), headache(s), night sweats, weakness Eyes: ABSENT: visual disturbances Ears: ABSENT: hearing changes Nose, Mouth, and Throat: ABSENT: mouth pain, sore throat Cardiovascular: ABSENT: edema, orthropnea, palpitations Respiratory: ABSENT: dyspnea, hemoptysis Gastrointestinal: PRESENT: melena. ABSENT: diarrhea, nausea, vomiting Genitourinary: ABSENT: dysuria, hematuria Musculoskeletal: ABSENT: deformity, joint swelling Integumentary: ABSENT: pruritus Neurological: ABSENT: syncope, tingling, tremor(s), vertigo Endocrine: ABSENT: polydipsia, polyphagia, polyuria Hematologic/Lymphatic: ABSENT: easy bruising Physical Exam General appearance: PRESENT: no acute distress, well-developed, well-nourished Head exam: PRESENT: atraumatic, normocephalic Eye exam: PRESENT: EOMI, PERRLA. ABSENT: nystagmus, scleral icterus Mouth exam: PRESENT: moist Throat exam: ABSENT: tonsillar exudate, tonsillogmegaly Respiratory exam: PRESENT: symmetrical, unlabored. ABSENT: tachypnea, wheezes Cardiovascular exam: PRESENT: irregular rhythm GI/Abdominal exam: ABSENT: rebound, rigid, soft, tenderness Extremities exam: ABSENT: calf tenderness, clubbing, joint swelling Musculoskeletal exam: PRESENT: full ROM Neurological exam: PRESENT: alert, awake, oriented to time, oriented to situation, CN II-XII grossly intact Focused psych exam: ABSENT: restlessness Skin exam: PRESENT: normal color. ABSENT: mottled, urticaria, vesicles Assessment & Plan - Diagnosis (1) GI bleed Plan: records of previous work up needs to be obtained patient of Dr Liriano who still has privileges at [facility] depending of what has been done, can plan for further work up ? repeat EGD vs colonoscopy vs repeating both if recent work up , then may need capsule endoscopy, unfortunately not available at [facility] monitor H/H transfuse as necessary start on PPI drip and depending on blood count, can reverse patient's elevated INR with FFP further recommendations to follow - Time Time Spent: 50 to 70 Minutes
--- NOTE | 2018-02-22 22:50 | EKG REPORT ---
SEVERITY:- ABNORMAL ECG - SINUS RHYTHM FIRST DEGREE AV BLOCK LEFT ANTERIOR FASCICULAR BLOCK BORDERLINE T ABNORMALITIES, ANT-LAT LEADS BORDERLINE PROLONGED QT INTERVAL : Confirmed by: Rashad Burger 22-Feb-2018 22:49:41
[2018-02-22] MEDS ORDERED: KETOROLAC TROMETHAMINE INJ/PF 30 MG/1 ML SDV IV PRN (23:08)
--- NOTE | 2018-02-23 03:36 | PDOC H&P ---
History of Present Illness Admission Date/PCP: 02/22/18 20:23 Patient complains of: Dark stools History of Present Illness: LAM PETIT is a 72 year old female with a 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 Patient was recently on Naprosyn and prednisone complaining of diffuse abdominal pain and constipation she noted dark stools prompting evaluation emergency room. She is found to have a supratherapeutic INR of 3.2, hemoglobin of 7.7 and hard black stool with Hemoccult stool positive for blood. Patient is lying flat in no acute distress but visibly anxious. Currently denies pain while receiving 1 of 2 units of packed red blood cells. Patient denies previous episode of GI bleed. Past Medical History Cardiac Medical History: Reports: Atrial Fibrillation - A flutter, Congestive Heart Failure, Hyperlipidema, Heart Murmur - req SBE prophylaxis Denies: Coronary Artery Disease, Myocardial Infarction, Hypertension Pulmonary Medical History: Reports: Asthma - COPD, Bronchitis, Chronic Obstructive Pulmonary Disease (COPD), Sleep Apnea Denies: Pneumonia, Tuberculosis Neurological Medical History: Denies: Seizures Endocrine Medical History: Reports: Diabetes Mellitus Type 1, Diabetes Mellitus Type 2 Malignancy Medical History: Reports: Cervical Cancer GI Medical History: Reports: Hiatal Hernia Denies: Hepatitis Musculoskeltal Medical History: Reports: Arthritis Psychiatric Medical History: Reports: Depression Hematology: Reports: Anemia - hx of Denies: Hemophilia, Sickle Cell Disease Past Surgical History Past Surgical History: Reports: 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, Cardiac Catheterization, Herniorrhaphy, Hysterectomy, Orthopedic Surgery - R knee, R toe ,R knee, Tonsillectomy, Tubal Ligation, Other - Ablation for atrial fibrillation Denies: Mastectomy, Pacemaker Social History Information Source: Patient, [facility] Records Smoking Status: Former Smoker Number of Years Smokin Last Time Smoked: 1992 Frequency of Alcohol Use: Rare Hx Recreational Drug Use: No Drugs: None Hx Prescription Drug Abuse: No - Advance Directive Resuscitation Status: Full Code Family History Family History: Hypertension, Other Parental Family History Reviewed: Yes Children Family History Reviewed: Yes Sibling(s) Family History Reviewed.: Yes Medication/Allergy Home Medications: Benazepril HCl [Lotensin 10 mg Tablet] 10 mg PO DAILY 05/14/17 Cyclosporine [Restasis Droperette] 1 drop OU Q12 05/14/17 Duloxetine HCl [Cymbalta] 60 mg PO DAILY 05/14/17 Escitalopram Oxalate [Lexapro] 5 mg PO QHS 05/14/17 Furosemide [Lasix 20 mg Tablet] 20 mg PO DAILY 05/14/17 Levothyroxine Sodium [Synthroid] 125 mcg PO QAM 05/14/17 Lubiprostone [Amitiza 24 Mcg Capsule] 24 mcg PO BID 05/14/17 Metoprolol Succinate [Toprol Xl 25 mg Tab.sr] 37.5 mg PO DAILY 05/14/17 Montelukast Sodium [Singulair 10 mg Tablet] 10 mg PO QPM 05/14/17 Oxycodone HCl/Acetaminophen [Percocet 5-325 mg Tablet] 1 tab PO BIDP PRN Potassium Chloride 20 meq PO DAILY 05/14/17 Sitagliptin Phosphate [Januvia] 100 mg PO DAILY 05/14/17 Trazodone HCl [Desyrel 50 mg Tablet] 50 mg PO HSP PRN 05/14/17 Warfarin Sodium [Coumadin] 5 mg PO QHS 05/14/17 Fluticasone Propionate [Flonase Nasal Tatum 50 Mcg/Tatum 16 gm] 2 spray NAREB Q12 02/22/18 Fluticasone/Salmeterol [Advair 250-50 Diskus 14 Dose/Diskus] 1 inh IH Q12 Allergies/Adverse Reactions: captopril [Captopril] Allergy (Severe, Verified 09/26/16 12:23) cough thimerosal [From Merthiolate] Allergy (Severe, Verified 09/26/16 12:23) severe rash Review of Systems Constitutional: ABSENT: chills, fever(s), headache(s), weight gain, weight loss Eyes: ABSENT: visual disturbances Ears: ABSENT: hearing changes Cardiovascular: ABSENT: chest pain, dyspnea on exertion, edema, orthropnea, palpitations Respiratory: ABSENT: cough, hemoptysis Gastrointestinal: ABSENT: abdominal pain, constipation, diarrhea, hematemesis, hematochezia, nausea, vomiting Genitourinary: ABSENT: dysuria, hematuria Musculoskeletal: ABSENT: joint swelling Integumentary: ABSENT: rash, wounds Neurological: ABSENT: abnormal gait, abnormal speech, confusion, dizziness, focal weakness, syncope Psychiatric: ABSENT: anxiety, depression, homidical ideation, suicidal ideation Endocrine: ABSENT: cold intolerance, heat intolerance, polydipsia, polyuria Hematologic/Lymphatic: ABSENT: easy bleeding, easy bruising Physical Exam Vital Signs: Temp Pulse Resp BP Pulse Ox 98.5 F 80 20 124/55 L 98 02/23/18 02:57 02/23/18 02:57 02/23/18 02:57 02/23/18 02:57 02/23/18 02:57 Intake & Output 02/21/18 02/22/18 02/23/18 11:59 11:59 11:59 Intake Total 350 Balance 350 Weight 111.6 kg General appearance: PRESENT: cooperative, mild distress, morbidly obese, well- developed, well-nourished Head exam: PRESENT: atraumatic, normocephalic Eye exam: PRESENT: conjunctiva pale, EOMI, PERRLA. ABSENT: scleral icterus Ear exam: PRESENT: normal external ear exam Mouth exam: PRESENT: moist, tongue midline Neck exam: ABSENT: carotid bruit, JVD, lymphadenopathy, thyromegaly Respiratory exam: PRESENT: clear to auscultation michele. ABSENT: rales, rhonchi, wheezes Cardiovascular exam: PRESENT: RRR. ABSENT: diastolic murmur, rubs, systolic murmur Pulses: PRESENT: normal dorsalis pedis pul Vascular exam: PRESENT: normal capillary refill GI/Abdominal exam: PRESENT: normal bowel sounds, soft. ABSENT: distended, guarding, mass, organolmegaly, rebound, tenderness Rectal exam: PRESENT: deferred Extremities exam: PRESENT: full ROM. ABSENT: calf tenderness, clubbing, pedal edema Neurological exam: PRESENT: alert, awake, oriented to person, oriented to place , oriented to time, oriented to situation, CN II-XII grossly intact. ABSENT: motor sensory deficit Psychiatric exam: PRESENT: appropriate affect, normal mood. ABSENT: homicidal ideation, suicidal ideation Skin exam: PRESENT: dry, intact, warm. ABSENT: cyanosis, rash Results Laboratory Results: 02/22/18 21:30 02/22/18 21:30 WBC 5.8 RBC 2.67 L Hgb 8.0 L Hct 23.8 L MCV 89 MCH 30.0 MCHC 33.7 RDW 16.6 H Plt Count 321 Seg Neutrophils % 59.3 Lymphocytes % 28.7 Monocytes % 9.2 Eosinophils % 2.0 Basophils % 0.8 Absolute Neutrophils 3.5 Absolute Lymphocytes 1.7 Absolute Monocytes 0.5 Absolute Eosinophils 0.1 Absolute Basophils 0.0 Assessment & Plan - Diagnosis (1) Anemia requiring transfusions Is this a current diagnosis for this admission?: Yes Plan: 102 units of packed red blood cells initiated, follow-up CBC every 8 hours. (2) GI bleed Qualifiers: GI bleed type/associated pathology: unspecified gastrointestinal hemorrhage type Qualified Code(s): K92.2 - Gastrointestinal hemorrhage, unspecified Is this a current diagnosis for this admission?: Yes Plan: Unclear source given history of risks for upper and lower GI bleeding, however lack of elevated BUN suggesting slow lower GI bleeding. Possibly related to surgeries and complicated by supratherapeutic INR. Follow-up CBC and GI consultation. (3) Paroxysmal atrial fibrillation Is this a current diagnosis for this admission?: Yes Plan: Continue beta-lacey, Coumadin held (4) Sleep apnea Qualifiers: Sleep apnea type: unspecified type Qualified Code(s): G47.30 - Sleep apnea , unspecified Is this a current diagnosis for this admission?: Yes Plan: BiPAP while asleep (5) Anticoagulated Is this a current diagnosis for this admission?: Yes Plan: Supratherapeutic INR, Coumadin held - Time Time Spent: 50 to 70 Minutes - Inpatient Certification Medical Necessity: Need Close Monitoring Due to Risk of Patient Decompensation
[2018-02-23 05:19] LABS: ABSOLUTE EOSINOPHILS # (AUTO) 0.1 10^3/uL (0.0-0.6); ABSOLUTE LYMPHOCYTES (AUTO) 1.7 10^3/uL (0.5-4.7); ABSOLUTE MONOCYTES (AUTO) 0.4 10^3/uL (0.1-1.4); ABSOLUTE NEUT (AUTO) 2.9 10^3/uL (1.7-8.2); BASOPHILS % (AUTO) 0.8 % (0-2); EOSINOPHILS % (AUTO) 2.3 % (0-6); HEMATOCRIT 25.6 % (36.0-47.0); HEMOGLOBIN 8.7 g/dL (12.0-15.5); LYMPHOCYTES % (AUTO) 33.1 % (13-45); MEAN CORPUSCULAR HEMOGLOBIN 29.3 pg (27.0-33.4); MEAN CORPUSCULAR HGB CONC 34.1 g/dL (32.0-36.0); MEAN CORPUSCULAR VOLUME 86 fl (80-97); MONOCYTES % (AUTO) 8.4 % (3-13); PLATELET COUNT 263 10^3/uL (150-450); RED BLOOD COUNT 2.98 10^6/uL (3.72-5.28); SEGMENTED NEUTROPHILS % (AUTO) 55.4 % (42-78); TOTAL CELLS COUNTED % (AUTO) 100 %; WHITE BLOOD COUNT 5.3 10^3/uL (4.0-10.5)
[2018-02-23 05:41] LABS: ANION GAP 9 (5-19); BLOOD UREA NITROGEN 16 mg/dL (7-20); CARBON DIOXIDE 28 mmol/L (22-30); CHLORIDE 108 mmol/L (98-107); GLUCOSE 129 mg/dL (75-110); POTASSIUM 3.4 mmol/L (3.6-5.0); SODIUM 144.9 mmol/L (137-145)
[2018-02-23] MEDS: NORMAL SALINE 100 ML with PANTOPRAZOLE SODIUM 80 MG IV PRN ×4 (07:55→17:28)
--- NOTE | 2018-02-23 08:05 | PDOC PROGRESS REPORT ---
Subjective Progress Note for:: 02/23/18 Subjective:: patient seen this am sitting by side of bed gives reasonably good history does have chronic anemia and does see Dr Pierce patient has CHF as well had colonoscopy done about 4 weeks ago and had polyp removed apparently had EGD as well patient was told it was negative patient came in with dark tarry stools, Hgb is stable but BUN is normal patient is agreeable to have repeat EGD and colonoscopy done she is on chronic pain meds and will need Propofol sedation patient still has elevated INR and will need correction first probably will need FFP today I will write orders for prep today and will proceed with EGD and colonoscopy tomorrow once INR is 1.5 patient is agreeable to proceed Reason For Visit: GIB,SUPRATHERAPUTIC INR, AFIB Physical Exam Vital Signs: Temp Pulse Resp BP Pulse Ox 97 F L 80 18 110/49 L 97 02/23/18 04:31 02/23/18 07:00 02/23/18 04:31 02/23/18 04:31 02/23/18 04:31 Intake & Output 02/22/18 02/23/18 02/24/18 06:59 06:59 06:59 Intake Total 745 Balance 745 Weight 111.6 kg General appearance: PRESENT: no acute distress, well-developed, well-nourished Head exam: PRESENT: normocephalic Eye exam: PRESENT: EOMI, PERRLA. ABSENT: scleral icterus Mouth exam: PRESENT: moist, neck supple Throat exam: ABSENT: tonsillar exudate, tonsillogmegaly Neck exam: ABSENT: meningismus, tenderness, thyromegaly Respiratory exam: PRESENT: symmetrical, unlabored. ABSENT: tachypnea, wheezes Cardiovascular exam: PRESENT: irregular rhythm GI/Abdominal exam: PRESENT: soft. ABSENT: rebound, rigid, tenderness Musculoskeletal exam: PRESENT: full ROM Neurological exam: PRESENT: alert, awake, oriented to time, CN II-XII grossly intact Focused psych exam: ABSENT: restlessness Skin exam: PRESENT: normal color. ABSENT: mottled, pallor, urticaria, vesicles Results Laboratory Results: 02/23/18 05:00 02/23/18 05:00 02/22/18 02/23/18 02/23/18 21:30 05:00 05:00 WBC 5.8 5.3 RBC 2.67 L 2.98 L Hgb 8.0 L 8.7 L Hct 23.8 L 25.6 L MCV 89 86 MCH 30.0 29.3 MCHC 33.7 34.1 RDW 16.6 H 18.0 H Plt Count 321 263 Seg Neutrophils % 59.3 55.4 Lymphocytes % 28.7 33.1 Monocytes % 9.2 8.4 Eosinophils % 2.0 2.3 Basophils % 0.8 0.8 Absolute Neutrophils 3.5 2.9 Absolute Lymphocytes 1.7 1.7 Absolute Monocytes 0.5 0.4 Absolute Eosinophils 0.1 0.1 Absolute Basophils 0.0 0.0 Sodium 144.9 Potassium 3.4 L Chloride 108 H Carbon Dioxide 28 Anion Gap 9 BUN 16 Creatinine 1.05 Est GFR ( Amer) > 60 Est GFR (Non-Af Amer) 52 L Glucose 129 H Calcium 9.0 Assessment & Plan - Diagnosis (1) GI bleed Qualifiers: GI bleed type/associated pathology: unspecified gastrointestinal hemorrhage type Qualified Code(s): K92.2 - Gastrointestinal hemorrhage, unspecified Is this a current diagnosis for this admission?: Yes (2) GI bleeding Is this a current diagnosis for this admission?: Yes Plan: she has been on both prednisone and Aleve recently likely has ulcer, previous EGD was apparently negative she wants to have repeat testing (3) Chronic anemia Is this a current diagnosis for this admission?: Yes Plan: no source has been found patient would benefit from repeat work up since she is requesting a 2nd opinion (4) Colon polyp Qualifiers: Colon polyp type: unspecified Colon location: unspecified part of colon Qualified Code(s): K63.5 - Polyp of colon Is this a current diagnosis for this admission?: Yes Plan: has a history of polyp removal is a little far out for a post polypectomy bleed but would rule out other etiology patient may have AVM correct INR today prep over today will have anesthesia see her since she is at high risk for appropriate sedation - Time Time Spent with patient: 15-24 minutes
[2018-02-23] MEDS: OXYCODONE-ACETAMINOPHEN 5-325 MG TABLET PO PRN ×2 (09:59→21:41)
[2018-02-23] MEDS ORDERED: PEG 3350/NA SULF,BICARB,CL/KCL 4000 ML PO ONE (12:00)
[2018-02-23 12:07] LABS: HEMATOCRIT 26.9 % (36.0-47.0); HEMOGLOBIN 8.9 g/dL (12.0-15.5); MEAN CORPUSCULAR HEMOGLOBIN 28.9 pg (27.0-33.4); MEAN CORPUSCULAR HGB CONC 33.2 g/dL (32.0-36.0); MEAN CORPUSCULAR VOLUME 87 fl (80-97); PLATELET COUNT 279 10^3/uL (150-450); RED BLOOD COUNT 3.09 10^6/uL (3.72-5.28); RED CELL DISTRIBUTION WIDTH 18.4 % (11.5-14.0)
[2018-02-23 12:43] LABS: ABSOLUTE LYMPHOCYTES# (MANUAL) 2.1 10^3/uL (0.5-4.7); ABSOLUTE MONOCYTES # (MANUAL) 0.1 10^3/uL (0.1-1.4); ABSOLUTE NEUTROPHILS# (MANUAL) 2.7 10^3/uL (1.7-8.2); BAND NEUTROPHILS % (MANUAL) 3 % (3-5); BASOPHILS % (MANUAL) 0 % (0-2); EOSINOPHILS % (MANUAL) 4 % (0-6); LYMPHOCYTES % (MANUAL) 41 % (13-45); METAMYELOCYTES % (MANUAL) 2 % (0); MONOCYTES % (MANUAL) 2 % (3-13); SEGMENTED NEUTROPHILS % (MAN) 48 % (42-78); TOTAL CELLS COUNTED 100
[2018-02-23 12:45] LABS: ANISOCYTOSIS 1+; OVALOCYTES 1+; POIKILOCYTOSIS 1+; POLYCHROMASIA 1+; TOXIC GRANULATION 1+
[2018-02-23 12:46] LABS: PLATELET COMMENT ADEQUATE
[2018-02-23 17:09] LABS: ABSOLUTE EOSINOPHILS # (AUTO) 0.1 10^3/uL (0.0-0.6); ABSOLUTE LYMPHOCYTES (AUTO) 1.5 10^3/uL (0.5-4.7); ABSOLUTE MONOCYTES (AUTO) 0.4 10^3/uL (0.1-1.4); ABSOLUTE NEUT (AUTO) 2.6 10^3/uL (1.7-8.2); EOSINOPHILS % (AUTO) 2.8 % (0-6); HEMOGLOBIN 9.2 g/dL (12.0-15.5); LYMPHOCYTES % (AUTO) 31.4 % (13-45); MEAN CORPUSCULAR HEMOGLOBIN 28.3 pg (27.0-33.4); MEAN CORPUSCULAR HGB CONC 32.9 g/dL (32.0-36.0); MEAN CORPUSCULAR VOLUME 86 fl (80-97); MONOCYTES % (AUTO) 8.9 % (3-13); PLATELET COUNT 300 10^3/uL (150-450); RED BLOOD COUNT 3.25 10^6/uL (3.72-5.28); RED CELL DISTRIBUTION WIDTH 17.6 % (11.5-14.0); SEGMENTED NEUTROPHILS % (AUTO) 55.9 % (42-78); TOTAL CELLS COUNTED % (AUTO) 100 %; WHITE BLOOD COUNT 4.7 10^3/uL (4.0-10.5)
[2018-02-23] MEDS ORDERED: HALOPERIDOL LACTATE INJ 5 MG/1 ML VIAL IV ONE (20:30)
[2018-02-23 20:59] LABS: ABSOLUTE EOSINOPHILS # (AUTO) 0.1 10^3/uL (0.0-0.6); ABSOLUTE LYMPHOCYTES (AUTO) 1.5 10^3/uL (0.5-4.7); ABSOLUTE MONOCYTES (AUTO) 0.4 10^3/uL (0.1-1.4); ABSOLUTE NEUT (AUTO) 2.8 10^3/uL (1.7-8.2); ABSOLUTE RETICS # 0.148 10^6/uL (0.028-0.122); BASOPHILS % (AUTO) 0.6 % (0-2); EOSINOPHILS % (AUTO) 2.9 % (0-6); HEMATOCRIT 27.9 % (36.0-47.0); HEMOGLOBIN 9.3 g/dL (12.0-15.5); MEAN CORPUSCULAR HEMOGLOBIN 28.9 pg (27.0-33.4); MEAN CORPUSCULAR HGB CONC 33.4 g/dL (32.0-36.0); MEAN CORPUSCULAR VOLUME 87 fl (80-97); MONOCYTES % (AUTO) 7.6 % (3-13); PLATELET COUNT 288 10^3/uL (150-450); RED BLOOD COUNT 3.22 10^6/uL (3.72-5.28); RED CELL DISTRIBUTION WIDTH 18.2 % (11.5-14.0); SEGMENTED NEUTROPHILS % (AUTO) 57.9 % (42-78); TOTAL CELLS COUNTED % (AUTO) 100 %; WHITE BLOOD COUNT 4.8 10^3/uL (4.0-10.5)
[2018-02-23 21:07] LABS: IRON(TIBC) 77.4 ug/dL (37-170)
[2018-02-23] MEDS: TRAZODONE HCL 50 MG TABLET PO PRN (21:41)
[2018-02-24 00:12] LABS: ANION GAP 9 (5-19); BLOOD UREA NITROGEN 12 mg/dL (7-20); CALCIUM 9.1 mg/dL (8.4-10.2); CARBON DIOXIDE 27 mmol/L (22-30); CHLORIDE 107 mmol/L (98-107); GLUCOSE 124 mg/dL (75-110); POTASSIUM 3.1 mmol/L (3.6-5.0)
[2018-02-24] MEDS ORDERED: POTASSIUM CHLORIDE 10 MEQ CAPSULE.ER PO ONE (01:00)
[2018-02-24] MEDS ORDERED: POTASSI CL 20 MEQ/50 ML RIDER 20 MEQ/50 ML RTUPB IV ONE (02:01)
[2018-02-24] MEDS ORDERED: METOPROLOL TARTRATE PF/INJ 5 MG/5 ML SDV IV ONE (02:30)
[2018-02-24] MEDS ORDERED: METOPROLOL TARTRATE PF/INJ 5 MG/5 ML SDV IV PRN (02:35)
[2018-02-24] MEDS: POTASSIUM CHLORIDE 20 MEQ/50 ML RTU IV SCH ×2 (02:46→04:57)
[2018-02-24] MEDS: NORMAL SALINE 100 ML with PANTOPRAZOLE SODIUM 80 MG IV PRN ×4 (05:20→18:20)
[2018-02-24 07:01] LABS: APPEARANCE,URINE SLIGHTLY-CLOUDY; BILIRUBIN,URINE NEGATIVE (NEGATIVE); COLOR,URINE YELLOW; GLUCOSE, URINE NEGATIVE (NEGATIVE); KETONES,URINE NEGATIVE (NEGATIVE); LEUKOCYTE ESTERASE,URINE NEGATIVE (NEGATIVE); NITRITE,URINE NEGATIVE (NEGATIVE); PROTEIN,URINE NEGATIVE (NEGATIVE); URINE SPECIFIC GRAVITY 1.009; UROBILINOGEN,URINE NEGATIVE mg/dL (<2.0)
[2018-02-24 07:39] LABS: ABSOLUTE EOSINOPHILS # (AUTO) 0.2 10^3/uL (0.0-0.6); ABSOLUTE LYMPHOCYTES (AUTO) 1.3 10^3/uL (0.5-4.7); ABSOLUTE MONOCYTES (AUTO) 0.4 10^3/uL (0.1-1.4); ABSOLUTE NEUT (AUTO) 2.7 10^3/uL (1.7-8.2); EOSINOPHILS % (AUTO) 3.7 % (0-6); HEMATOCRIT 25.1 % (36.0-47.0); HEMOGLOBIN 8.5 g/dL (12.0-15.5); LYMPHOCYTES % (AUTO) 28.5 % (13-45); MEAN CORPUSCULAR HEMOGLOBIN 29.3 pg (27.0-33.4); MEAN CORPUSCULAR VOLUME 86 fl (80-97); MONOCYTES % (AUTO) 8.3 % (3-13); PLATELET COUNT 293 10^3/uL (150-450); RED BLOOD COUNT 2.91 10^6/uL (3.72-5.28); RED CELL DISTRIBUTION WIDTH 17.8 % (11.5-14.0); SEGMENTED NEUTROPHILS % (AUTO) 58.5 % (42-78); TOTAL CELLS COUNTED % (AUTO) 100 %; WHITE BLOOD COUNT 4.6 10^3/uL (4.0-10.5)
[2018-02-24 07:46] LABS: INTERNATIONAL RATION (INR) 1.87; PROTHROMBIN TIME 22.4 SEC (11.4-15.4)
[2018-02-24 07:47] LABS: PARTIAL THROMBOPLASTIN TIME 43.6 SEC (23.5-35.8)
--- NOTE | 2018-02-24 09:40 | EKG REPORT ---
SEVERITY:- ABNORMAL ECG - SINUS TACHYCARDIA ATRIAL PREMATURE COMPLEX LEFT ANTERIOR FASCICULAR BLOCK PROBABLE LVH WITH SECONDARY REPOL ABNRM : Confirmed by: Rashad Burger 24-Feb-2018 09:40:33
--- NOTE | 2018-02-24 09:58 | Physician Advisory Note ---
Physician Advisor ProgressNote .: Pursuant to the plan for [facility], I have reviewed the medical record for this patient. Physician Advisor Statement: Please consider documenting, if you agree: 1. "Possible Acute Blood Loss Anemia, last Hgb here was 11.0 on 07/26/17" 2. "Chronic diastolic CHF", or "chronic HFpEF" (ECHO 2013 = impaired LV relaxation, EF 73%) Thanks! CK
[2018-02-24] MEDS: DULOXETINE HCL 30 MG CAPSULE.DR PO SCH (10:14)
[2018-02-24] MEDS: ESCITALOPRAM OXALATE 10 MG TABLET PO SCH (10:14)
[2018-02-24] MEDS: METOPROLOL SUCCINATE 25 MG TAB.SR.24H PO SCH (10:14)
[2018-02-24 11:25] LABS: ABSOLUTE EOSINOPHILS # (AUTO) 0.1 10^3/uL (0.0-0.6); ABSOLUTE LYMPHOCYTES (AUTO) 1.2 10^3/uL (0.5-4.7); ABSOLUTE MONOCYTES (AUTO) 0.4 10^3/uL (0.1-1.4); ABSOLUTE NEUT (AUTO) 3.2 10^3/uL (1.7-8.2); BASOPHILS % (AUTO) 0.7 % (0-2); HEMOGLOBIN 9.1 g/dL (12.0-15.5); LYMPHOCYTES % (AUTO) 23.9 % (13-45); MEAN CORPUSCULAR HEMOGLOBIN 29.1 pg (27.0-33.4); MEAN CORPUSCULAR HGB CONC 33.7 g/dL (32.0-36.0); MEAN CORPUSCULAR VOLUME 86 fl (80-97); MONOCYTES % (AUTO) 8.4 % (3-13); PLATELET COUNT 301 10^3/uL (150-450); RED BLOOD COUNT 3.13 10^6/uL (3.72-5.28); RED CELL DISTRIBUTION WIDTH 17.9 % (11.5-14.0); TOTAL CELLS COUNTED % (AUTO) 100 %
[2018-02-24 11:27] LABS: ANION GAP 5 (5-19); BLOOD UREA NITROGEN 8 mg/dL (7-20); CALCIUM 9.4 mg/dL (8.4-10.2); CARBON DIOXIDE 28 mmol/L (22-30); CHLORIDE 113 mmol/L (98-107); GLUCOSE 129 mg/dL (75-110); POTASSIUM 3.8 mmol/L (3.6-5.0); SODIUM 146.4 mmol/L (137-145)
[2018-02-24] MEDS ORDERED: PROPOFOL INJ 200 MG/20 ML VIAL IV ONE (13:03)
[2018-02-24] MEDS ORDERED: MIDAZOLAM 2 MG/2 ML INJ ONE (13:03)
[2018-02-24] MEDS ORDERED: FENTANYL CITRATE INJ/PF 100 MCG/2 ML AMPUL IV PRN ×3 (13:33)
--- NOTE | 2018-02-24 13:45 | PDOC PROGRESS REPORT ---
Subjective Progress Note for:: 02/24/18 Subjective:: I seen patient while resting in bed comfortably she is not in pain or any form of distress. She is awake alert oriented to time place and person. Patient kept n.p.o. since she is scheduled this morning for colonoscopy and upper endoscopy. Reason For Visit: GIB,SUPRATHERAPUTIC INR, AFIB Physical Exam Vital Signs: Temp Pulse Resp BP Pulse Ox 98.4 F 87 20 153/61 H 95 02/24/18 11:28 02/24/18 11:28 02/24/18 11:28 02/24/18 11:28 02/24/18 11:28 Intake & Output 02/23/18 02/24/18 02/25/18 06:59 06:59 06:59 Intake Total 745 2224 Balance 745 2224 Weight 111.6 kg 110.5 kg General appearance: PRESENT: no acute distress, well-developed, well-nourished Head exam: PRESENT: atraumatic, normocephalic Neck exam: ABSENT: carotid bruit, JVD, lymphadenopathy, thyromegaly Respiratory exam: PRESENT: clear to auscultation michele. ABSENT: rales, rhonchi, wheezes Cardiovascular exam: PRESENT: RRR. ABSENT: diastolic murmur, rubs, systolic murmur GI/Abdominal exam: PRESENT: normal bowel sounds, soft, other - Obese abdomen. ABSENT: distended, guarding, mass, organolmegaly, rebound, tenderness Neurological exam: PRESENT: alert, awake, oriented to time, oriented to situation Psychiatric exam: PRESENT: normal mood Results Laboratory Results: 02/24/18 11:02 02/24/18 11:02 02/23/18 02/23/18 02/23/18 16:57 20:47 20:47 WBC 4.7 4.8 RBC 3.25 L 3.22 L Hgb 9.2 L 9.3 L Hct 28.0 L 27.9 L MCV 86 87 MCH 28.3 28.9 MCHC 32.9 33.4 RDW 17.6 H 18.2 H Plt Count 300 288 Seg Neutrophils % 55.9 57.9 Lymphocytes % 31.4 31.0 Monocytes % 8.9 7.6 Eosinophils % 2.8 2.9 Basophils % 1.0 0.6 Absolute Neutrophils 2.6 2.8 Absolute Lymphocytes 1.5 1.5 Absolute Monocytes 0.4 0.4 Absolute Eosinophils 0.1 0.1 Absolute Basophils 0.0 0.0 Retic Count (auto) 4.60 H Absolute Retic 0.148 H Sodium Potassium Chloride Carbon Dioxide Anion Gap BUN Creatinine Est GFR ( Amer) Est GFR (Non-Af Amer) Glucose Calcium Magnesium Iron 77.4 TIBC 361 % Saturation 21 Ferritin 16.40 Vitamin B12 676.0 Folate 18.50 Urine Color Urine Appearance Urine pH Ur Specific [place] Urine Protein Urine Glucose (UA) Urine Ketones Urine Blood Urine Nitrite Ur Leukocyte Esterase Urine WBC (Auto) Urine RBC (Auto) 02/23/18 02/24/18 02/24/18 23:50 06:30 07:20 WBC 4.6 RBC 2.91 L Hgb 8.5 L Hct 25.1 L MCV 86 MCH 29.3 MCHC 34.0 RDW 17.8 H Plt Count 293 Seg Neutrophils % 58.5 Lymphocytes % 28.5 Monocytes % 8.3 Eosinophils % 3.7 Basophils % 1.0 Absolute Neutrophils 2.7 Absolute Lymphocytes 1.3 Absolute Monocytes 0.4 Absolute Eosinophils 0.2 Absolute Basophils 0.0 Retic Count (auto) Absolute Retic Sodium 143.0 Potassium 3.1 L Chloride 107 Carbon Dioxide 27 Anion Gap 9 BUN 12 Creatinine 0.92 Est GFR ( Amer) > 60 Est GFR (Non-Af Amer) > 60 Glucose 124 H Calcium 9.1 Magnesium 1.9 Iron TIBC % Saturation Ferritin Vitamin B12 Folate Urine Color YELLOW Urine Appearance SLIGHTLY-CLOUDY Urine pH 7.0 Ur Specific [place] 1.009 Urine Protein NEGATIVE Urine Glucose (UA) NEGATIVE Urine Ketones NEGATIVE Urine Blood MODERATE H Urine Nitrite NEGATIVE Ur Leukocyte Esterase NEGATIVE Urine WBC (Auto) 1 Urine RBC (Auto) 1 02/24/18 02/24/18 11:02 11:02 WBC 5.0 RBC 3.13 L Hgb 9.1 L Hct 27.0 L MCV 86 MCH 29.1 MCHC 33.7 RDW 17.9 H Plt Count 301 Seg Neutrophils % 64.0 Lymphocytes % 23.9 Monocytes % 8.4 Eosinophils % 3.0 Basophils % 0.7 Absolute Neutrophils 3.2 Absolute Lymphocytes 1.2 Absolute Monocytes 0.4 Absolute Eosinophils 0.1 Absolute Basophils 0.0 Retic Count (auto) Absolute Retic Sodium 146.4 H Potassium 3.8 Chloride 113 H Carbon Dioxide 28 Anion Gap 5 BUN 8 Creatinine 0.82 Est GFR ( Amer) > 60 Est GFR (Non-Af Amer) > 60 Glucose 129 H Calcium 9.4 Magnesium Iron TIBC % Saturation Ferritin Vitamin B12 Folate Urine Color Urine Appearance Urine pH Ur Specific [place] Urine Protein Urine Glucose (UA) Urine Ketones Urine Blood Urine Nitrite Ur Leukocyte Esterase Urine WBC (Auto) Urine RBC (Auto) Assessment & Plan - Diagnosis (1) Acute blood loss anemia due to GI bleedi Is this a current diagnosis for this admission?: Yes Plan: Status post packed RBC transfusion. Today patient scheduled for colonoscopy and upper endoscopy by GI. (2) Atrial fibrillation Qualifiers: Atrial fibrillation type: paroxysmal Qualified Code(s): I48.0 - Paroxysmal atrial fibrillation Is this a current diagnosis for this admission?: Yes Plan: Rate controlled. Coumadin has been stopped since patient has GI bleeding and will discuss with his cigarette paper tester and nutter up for possible resumption of Coumadin or to stop it totally. (3) Diastolic congestive heart failure Qualifiers: Heart failure chronicity: chronic Qualified Code(s): I50.32 - Chronic diastolic (congestive) heart failure Is this a current diagnosis for this admission?: Yes Plan: Compensated. (4) Obstructive sleep apnea Is this a current diagnosis for this admission?: Yes Plan: Continue CPAP - Time Time Spent with patient: 25-34 minutes
--- NOTE | 2018-02-24 14:55 | Operative Report ---
Operative Report DATE OF SURGERY: 02/24/18 Operative Report: The risks, benefits and alternatives of the procedure including risks of bleeding, perforation requiring surgery are explained to the patient in detail and informed consent was obtained. patient was taken back to the operating room and placed in the left, lateral decubital position. Timeout was called. Propofol medication is administered. A rectal examination is done which did not reveal any masses, tears or fissures. An Olympus videoscope was inserted into the patient's rectum. The scope was then carefully advanced all the way to the cecum. The cecum was identified by the usual anatomical landmarks including the ileocecal valve as well as the appendiceal office. Photodocumentation was obtained. Prep is not as good. The scope was then sequentially pulled back via the rest segments of the colon including the ascending colon, hepatic flexure, transverse colon, splenic flexure, descending colon and finally into the rectosigmoid portions of the colon. Retroflexion maneuvers performed. The risks benefits and alternatives of the procedure explained to the patient in detail and informed consent is obtained.A GIF Olympus video scope was inserted into the patient's mouth and hypopharynx, the esophagus is identified intubated and insufflated, the scope was then advanced through the esophagus stomach and duodenum, retroflexion maneuver is done, the esophagus stomach and first and second portions of the duodenum examined PREOPERATIVE DIAGNOSIS: History of polyps, melena POSTOPERATIVE DIAGNOSIS: AVM in the ascending colon that is ablated. Diverticulosis. Internal hemorrhoids. Gastritis status post biopsy rule out Helicobacter pylori. Hiatal hernia OPERATION: Colonoscopy with ablation. EGD with biopsy SURGEON: OLIVIA HENRIQUEZ ANESTHESIA: LMAC TISSUE REMOVED OR ALTERED: As noted above. COMPLICATIONS: None. ESTIMATED BLOOD LOSS: None. INTRAOPERATIVE FINDINGS: As noted above. PROCEDURE: Patient tolerated the procedure well. No immediate postprocedure complications are noted. Patient discharged back to her room in good condition. We will wait on biopsy results Follow H&H I will call the hospitalist to make further recommendations
[2018-02-24] MEDS: IPRATROPIUM/ALBUTEROL 0.5-2.5 MG/3 ML AMPUL NEB SCH (20:45)
[2018-02-24] MEDS: FLUTICASONE/SALMETEROL DISKUS 250-50 MCG/DOSE IH SCH (21:04)
[2018-02-24] MEDS: TRAZODONE HCL 50 MG TABLET PO PRN (21:04)
[2018-02-24] MEDS ORDERED: HALOPERIDOL LACTATE INJ 5 MG/1 ML VIAL IV ONE (21:45)
[2018-02-25] MEDS: OXYCODONE-ACETAMINOPHEN 5-325 MG TABLET PO PRN ×2 (00:28→21:30)
[2018-02-25] MEDS: IPRATROPIUM/ALBUTEROL 0.5-2.5 MG/3 ML AMPUL NEB SCH ×4 (01:55→19:55)
[2018-02-25] MEDS: METOPROLOL SUCCINATE 25 MG TAB.SR.24H PO SCH (09:13)
[2018-02-25] MEDS: ESCITALOPRAM OXALATE 10 MG TABLET PO SCH (09:14)
[2018-02-25] MEDS: DULOXETINE HCL 30 MG CAPSULE.DR PO SCH (09:14)
[2018-02-25] MEDS: NORMAL SALINE 100 ML with PANTOPRAZOLE SODIUM 80 MG IV PRN ×4 (09:15→19:26)
[2018-02-25] MEDS: FLUTICASONE/SALMETEROL DISKUS 250-50 MCG/DOSE IH SCH ×2 (09:15→21:26)
--- NOTE | 2018-02-25 15:49 | PDOC PROGRESS REPORT ---
Subjective Subjective:: I seen and examined the patient at bedside. She is awake alert and oriented. She is not in pain or distress. Yesterday she had colonoscopy and EGD the colonoscopy revealed AVM on ascending colon which was ablated. Her H&H is stable. I will consult Dr. Hall, if I can start the patient on anticoagulant. Reason For Visit: GIB,SUPRATHERAPUTIC INR, AFIB Physical Exam Vital Signs: Temp Pulse Resp BP Pulse Ox 98.3 F 77 16 138/62 H 96 02/25/18 12:25 02/25/18 14:26 02/25/18 14:26 02/25/18 12:25 02/25/18 14:26 Intake & Output 02/24/18 02/25/18 02/26/18 06:59 06:59 06:59 Intake Total 2224 840 222 Output Total 0 Balance 2224 840 222 Weight 110.5 kg 109.2 kg General appearance: PRESENT: no acute distress, well-developed, well-nourished Head exam: PRESENT: atraumatic, normocephalic Eye exam: PRESENT: conjunctiva pink, EOMI, PERRLA. ABSENT: scleral icterus Ear exam: PRESENT: normal external ear exam Mouth exam: PRESENT: moist, tongue midline Neck exam: ABSENT: carotid bruit, JVD, lymphadenopathy, thyromegaly Respiratory exam: PRESENT: clear to auscultation michele. ABSENT: rales, rhonchi, wheezes Cardiovascular exam: PRESENT: RRR. ABSENT: diastolic murmur, rubs, systolic murmur Pulses: PRESENT: normal dorsalis pedis pul Vascular exam: PRESENT: normal capillary refill GI/Abdominal exam: PRESENT: normal bowel sounds, soft. ABSENT: distended, guarding, mass, organolmegaly, rebound, tenderness Rectal exam: PRESENT: deferred Extremities exam: PRESENT: full ROM. ABSENT: calf tenderness, clubbing, pedal edema Neurological exam: PRESENT: alert, awake, oriented to person, oriented to place , oriented to time, oriented to situation, CN II-XII grossly intact. ABSENT: motor sensory deficit Psychiatric exam: PRESENT: appropriate affect, normal mood. ABSENT: homicidal ideation, suicidal ideation Skin exam: PRESENT: dry, intact, warm. ABSENT: cyanosis, rash Results Laboratory Results: 02/24/18 11:02 02/24/18 11:02 Assessment & Plan - Diagnosis (1) Acute blood loss anemia due to GI bleedi Is this a current diagnosis for this admission?: Yes Plan: Her H&H is stable. Status post colonoscopy and EGD. EGD revealed gastritis and a colonoscopy revealed AVM (2) Atrial fibrillation Qualifiers: Atrial fibrillation type: paroxysmal Qualified Code(s): I48.0 - Paroxysmal atrial fibrillation Is this a current diagnosis for this admission?: Yes Plan: Rate controlled. Patient is off Coumadin and her INR is subtherapeutic. If I get the greenlight to start her on anticoagulants possibly I will switch her Coumadin to Eliquis. (3) Diastolic congestive heart failure Qualifiers: Heart failure chronicity: chronic Qualified Code(s): I50.32 - Chronic diastolic (congestive) heart failure Is this a current diagnosis for this admission?: Yes Plan: Compensated. (4) Obstructive sleep apnea Is this a current diagnosis for this admission?: Yes Plan: Continue CPAP
[2018-02-25] MEDS: TRAZODONE HCL 50 MG TABLET PO PRN (21:27)
[2018-02-25] MEDS ORDERED: NORMAL SALINE 100 ML with PANTOPRAZOLE SODIUM 80 MG IV PRN ×2 (22:00)
[2018-02-26] MEDS: IPRATROPIUM/ALBUTEROL 0.5-2.5 MG/3 ML AMPUL NEB SCH ×4 (02:33→20:14)
[2018-02-26] MEDS: LEVOTHYROXINE SODIUM 0.025 MG TABLET PO SCH (05:03)
[2018-02-26] MEDS: LEVOTHYROXINE SODIUM 0.1 MG TABLET PO SCH (05:03)
[2018-02-26] MEDS: NORMAL SALINE 100 ML with PANTOPRAZOLE SODIUM 80 MG IV PRN ×4 (05:03→17:16)
[2018-02-26] MEDS ORDERED: (PENDING PHARMACY ID) (Levothyroxine Sodium [Synthroid] 125 MCG) PO SCH (08:00)
[2018-02-26] MEDS: DULOXETINE HCL 30 MG CAPSULE.DR PO SCH (08:35)
[2018-02-26] MEDS: METOPROLOL SUCCINATE 25 MG TAB.SR.24H PO SCH (08:36)
[2018-02-26] MEDS: FLUTICASONE/SALMETEROL DISKUS 250-50 MCG/DOSE IH SCH ×2 (08:38→21:33)
[2018-02-26] MEDS: ESCITALOPRAM OXALATE 10 MG TABLET PO SCH ×2 (08:41→21:32)
--- NOTE | 2018-02-26 11:02 | PDOC PROGRESS REPORT ---
Subjective Progress Note for:: 02/26/18 Subjective:: patient's H/H has remained stable no further bleeding noted patient has not restarted her anticoagulation she had an AVM that likely bled with her elevated anticoagulation status she likely can be started back on her anticoagulation but needs to be maintained in the narrow therapeutic range Reason For Visit: GIB,SUPRATHERAPUTIC INR, AFIB Physical Exam Vital Signs: Temp Pulse Resp BP Pulse Ox 98.9 F 93 16 149/78 H 100 02/26/18 07:54 02/26/18 08:44 02/26/18 08:44 02/26/18 07:54 02/26/18 08:44 Intake & Output 02/25/18 02/26/18 02/27/18 06:59 06:59 06:59 Intake Total 840 911 Output Total 0 Balance 840 911 Weight 109.2 kg 109 kg General appearance: PRESENT: no acute distress, well-nourished Head exam: PRESENT: normocephalic Eye exam: PRESENT: EOMI, nystagmus, PERRLA. ABSENT: scleral icterus Mouth exam: PRESENT: moist, neck supple Throat exam: ABSENT: tonsillar exudate, tonsillogmegaly Neck exam: ABSENT: meningismus, tenderness Respiratory exam: PRESENT: symmetrical, unlabored. ABSENT: tachypnea, wheezes Cardiovascular exam: PRESENT: irregular rhythm, +S1, +S2 GI/Abdominal exam: PRESENT: soft. ABSENT: rebound, rigid, tenderness Extremities exam: ABSENT: joint swelling Musculoskeletal exam: PRESENT: full ROM Neurological exam: PRESENT: oriented to time, oriented to situation, CN II-XII grossly intact Focused psych exam: ABSENT: restlessness Skin exam: PRESENT: normal color. ABSENT: mottled, pallor, urticaria, vesicles Results Laboratory Results: 02/24/18 11:02 02/24/18 11:02 Assessment & Plan - Diagnosis (1) GI bleed Qualifiers: GI bleed type/associated pathology: unspecified gastrointestinal hemorrhage type Qualified Code(s): K92.2 - Gastrointestinal hemorrhage, unspecified Is this a current diagnosis for this admission?: Yes Plan: likely due to AVM that bled secondary to elevated INR ? diverticular restart anticoagulation maintain in therapeutic window patient is followed by Dr Liriano as an outpatient she can follow up with him can be discharged if INR is therapeutic range without any GI bleeding (2) GI bleeding Is this a current diagnosis for this admission?: Yes (3) Chronic anemia Is this a current diagnosis for this admission?: Yes (4) Colon polyp Qualifiers: Colon polyp type: unspecified Colon location: unspecified part of colon Qualified Code(s): K63.5 - Polyp of colon Is this a current diagnosis for this admission?: Yes - Time Time Spent with patient: 15-24 minutes
--- NOTE | 2018-02-26 11:13 | PDOC PROGRESS REPORT ---
Subjective Progress Note for:: 02/26/18 Subjective:: I seen patient while she sitting by the bedside. She is awake alert and oriented. She complains that she has generalized body ache which keeps her awake all night. Patient has been getting Percocet but it did not help her. I started her with fentanyl patch 25 Dre every 72 hours. I discontinued her Coumadin and started her on Eliquis 5 mg twice a day. Otherwise patient's clinical stable. Patient lives by herself at home. Since patient is debilitated and deconditioned she requires acute rehab placement. Reason For Visit: GIB,SUPRATHERAPUTIC INR, AFIB Physical Exam Vital Signs: Temp Pulse Resp BP Pulse Ox 98.9 F 93 16 149/78 H 100 02/26/18 07:54 02/26/18 08:44 02/26/18 08:44 02/26/18 07:54 02/26/18 08:44 Intake & Output 02/25/18 02/26/18 02/27/18 06:59 06:59 06:59 Intake Total 840 911 Output Total 0 Balance 840 911 Weight 109.2 kg 109 kg General appearance: PRESENT: no acute distress, well-developed, well-nourished, other - Obese Head exam: PRESENT: atraumatic, normocephalic Eye exam: PRESENT: conjunctiva pink, EOMI, PERRLA. ABSENT: scleral icterus Ear exam: PRESENT: normal external ear exam Mouth exam: PRESENT: moist, tongue midline Neck exam: ABSENT: carotid bruit, JVD, lymphadenopathy, thyromegaly Respiratory exam: PRESENT: clear to auscultation michele. ABSENT: rales, rhonchi, wheezes Cardiovascular exam: PRESENT: RRR. ABSENT: diastolic murmur, rubs, systolic murmur Pulses: PRESENT: normal dorsalis pedis pul Vascular exam: PRESENT: normal capillary refill GI/Abdominal exam: PRESENT: normal bowel sounds, soft. ABSENT: distended, guarding, mass, organolmegaly, rebound, tenderness Rectal exam: PRESENT: deferred Extremities exam: PRESENT: full ROM. ABSENT: calf tenderness, clubbing, pedal edema Neurological exam: PRESENT: alert, awake, oriented to person, oriented to place , oriented to time, oriented to situation, CN II-XII grossly intact. ABSENT: motor sensory deficit Psychiatric exam: PRESENT: appropriate affect, normal mood. ABSENT: homicidal ideation, suicidal ideation Skin exam: PRESENT: dry, intact, warm. ABSENT: cyanosis, rash Results Laboratory Results: 02/24/18 11:02 02/24/18 11:02 Assessment & Plan - Diagnosis (1) Acute blood loss anemia due to GI bleedi Is this a current diagnosis for this admission?: Yes Plan: Her H&H is stable. Status post colonoscopy and EGD. EGD revealed gastritis and a colonoscopy revealed AVM (2) Atrial fibrillation Qualifiers: Atrial fibrillation type: paroxysmal Qualified Code(s): I48.0 - Paroxysmal atrial fibrillation Is this a current diagnosis for this admission?: Yes Plan: Rate is controlled. Patient used to be on Coumadin now I switched her to Eliquis. (3) Diastolic congestive heart failure Qualifiers: Heart failure chronicity: chronic Qualified Code(s): I50.32 - Chronic diastolic (congestive) heart failure Is this a current diagnosis for this admission?: Yes Plan: Compensated. (4) Obstructive sleep apnea Is this a current diagnosis for this admission?: Yes Plan: Continue CPAP - Time Time Spent with patient: 25-34 minutes
[2018-02-26] MEDS ORDERED: DEXTROSE 50%-WATER SYRINGE 25 GM/50 ML DOSE IV PRN (11:31)
[2018-02-26] MEDS ORDERED: GLUCAGON,HUMAN RECOMB 1 MG INJ IM PRN (11:31)
[2018-02-26] MEDS ORDERED: DEXTROSE 40% GEL 15 GM TUBE X 2 PO PRN (11:31)
[2018-02-26] MEDS ORDERED: DEXTROSE 40% GEL 15 GM TUBE PO PRN (11:31)
[2018-02-26] MEDS ORDERED: DEXTROSE 50%-WATER SYRINGE 12.5 GM/25 ML DOSE IV PRN (11:31)
[2018-02-26] MEDS ORDERED: FENTANYL 25 MCG/HR PATCH.TD72 TD SCH (12:00)
[2018-02-26] MEDS ORDERED: TUBERCULIN,PURIF.PROT.DERIV. 5 TU/0.1 ML TEST 1 ML VIAL ID ONE (12:30)
[2018-02-26] MEDS ORDERED: SITAGLIPTIN PHOSPHATE 50 MG TABLET PO ONE (13:00)
[2018-02-26] MEDS ORDERED: POTASSIUM CHLORIDE 10 MEQ CAPSULE.ER PO ONE (13:00)
[2018-02-26] MEDS ORDERED: BENAZEPRIL HCL 10 MG TABLET PO ONE (13:00)
[2018-02-26] MEDS ORDERED: FUROSEMIDE 20 MG TABLET PO ONE (13:00)
[2018-02-26] MEDS: LUBIPROSTONE 24 MCG CAPSULE PO SCH (17:17)
[2018-02-26] MEDS: MONTELUKAST SODIUM 10 MG TABLET PO SCH (17:17)
[2018-02-26] MEDS: APIXABAN 5 MG TABLET PO SCH (17:17)
[2018-02-26] MEDS: CYCLOSPORINE 0.05% OPH EMULSIO 0.4 ML DROPERETTE OU SCH (21:32)
[2018-02-26] MEDS: TRAZODONE HCL 50 MG TABLET PO PRN (21:32)
[2018-02-26] MEDS: FLUTICASONE NASAL SPRAY 50 MCG/SPRY 120 SPRAY/16 GM NAREB SCH (21:33)
[2018-02-26] MEDS: INSULIN LISPRO 100 UNIT/ML 3 ML VIAL SUBCUT PRN (21:33)
[2018-02-26] MEDS: OXYCODONE-ACETAMINOPHEN 5-325 MG TABLET PO PRN (21:37)
[2018-02-27] MEDS: IPRATROPIUM/ALBUTEROL 0.5-2.5 MG/3 ML AMPUL NEB SCH ×4 (02:09→20:33)
[2018-02-27] MEDS: LEVOTHYROXINE SODIUM 0.025 MG TABLET PO SCH (05:15)
[2018-02-27] MEDS: LEVOTHYROXINE SODIUM 0.1 MG TABLET PO SCH (05:15)
[2018-02-27] MEDS: NORMAL SALINE 100 ML with PANTOPRAZOLE SODIUM 80 MG IV PRN ×2 (05:17)
[2018-02-27] MEDS: DULOXETINE HCL 30 MG CAPSULE.DR PO SCH (09:13)
[2018-02-27] MEDS: METOPROLOL SUCCINATE 25 MG TAB.SR.24H PO SCH (09:14)
[2018-02-27] MEDS: APIXABAN 5 MG TABLET PO SCH ×2 (09:14→17:04)
[2018-02-27] MEDS: POTASSIUM CHLORIDE 10 MEQ CAPSULE.ER PO SCH (09:14)
[2018-02-27] MEDS: SITAGLIPTIN PHOSPHATE 50 MG TABLET PO SCH (09:15)
[2018-02-27] MEDS: LUBIPROSTONE 24 MCG CAPSULE PO SCH ×2 (09:15→17:04)
[2018-02-27] MEDS: FUROSEMIDE 20 MG TABLET PO SCH (09:15)
[2018-02-27] MEDS: BENAZEPRIL HCL 10 MG TABLET PO SCH (09:15)
[2018-02-27] MEDS: FLUTICASONE NASAL SPRAY 50 MCG/SPRY 120 SPRAY/16 GM NAREB SCH ×2 (09:18→22:08)
[2018-02-27] MEDS: FLUTICASONE/SALMETEROL DISKUS 250-50 MCG/DOSE IH SCH ×2 (09:18→22:08)
[2018-02-27] MEDS: CYCLOSPORINE 0.05% OPH EMULSIO 0.4 ML DROPERETTE OU SCH ×2 (09:19→22:07)
--- NOTE | 2018-02-27 11:59 | PDOC PROGRESS REPORT ---
Subjective Progress Note for:: 02/27/18 Subjective:: I seen patient lying in bed comfortably she is not in pain or distress. She is awake alert and oriented. She has been started on fentanyl patch and patient reports her pain is well controlled. Patient wants to be placed assisted living but it seems that her insurance will not cover for assisted-living. The 2 options left are acute rehab placement or home health. I will discuss tomorrow with environmental planner and potentially patient can be discharged. Reason For Visit: GIB,SUPRATHERAPUTIC INR, AFIB Physical Exam Vital Signs: Temp Pulse Resp BP Pulse Ox 98.3 F 85 16 134/56 H 93 02/27/18 07:43 02/27/18 08:39 02/27/18 08:39 02/27/18 07:43 02/27/18 08:39 Intake & Output 02/26/18 02/27/18 02/28/18 06:59 06:59 06:59 Intake Total 911 1422 Balance 911 1422 Weight 109 kg 113.4 kg General appearance: PRESENT: no acute distress Eye exam: PRESENT: conjunctiva pink Neck exam: ABSENT: carotid bruit, JVD, lymphadenopathy, thyromegaly Respiratory exam: PRESENT: clear to auscultation michele. ABSENT: rales, rhonchi, wheezes Cardiovascular exam: PRESENT: RRR. ABSENT: diastolic murmur, rubs, systolic murmur GI/Abdominal exam: PRESENT: normal bowel sounds, soft. ABSENT: distended, guarding, mass, organolmegaly, rebound, tenderness Neurological exam: PRESENT: alert, awake, oriented to time, oriented to situation Results Laboratory Results: 02/24/18 11:02 02/24/18 11:02 Assessment & Plan - Diagnosis (1) Acute blood loss anemia due to GI bleedi Is this a current diagnosis for this admission?: Yes Plan: Her H&H is stable. Status post colonoscopy and EGD. EGD revealed gastritis and a colonoscopy revealed AVM which is ablated. Her Protonix changed to p.o. (2) Atrial fibrillation Qualifiers: Atrial fibrillation type: paroxysmal Qualified Code(s): I48.0 - Paroxysmal atrial fibrillation Is this a current diagnosis for this admission?: Yes Plan: Rate is controlled. Patient used to be on Coumadin now I switched her to Eliquis. (3) Diastolic congestive heart failure Qualifiers: Heart failure chronicity: chronic Qualified Code(s): I50.32 - Chronic diastolic (congestive) heart failure Is this a current diagnosis for this admission?: Yes Plan: Compensated. (4) Obstructive sleep apnea Is this a current diagnosis for this admission?: Yes Plan: Continue CPAP - Time Time Spent with patient: 25-34 minutes
[2018-02-27] MEDS: MONTELUKAST SODIUM 10 MG TABLET PO SCH (17:04)
[2018-02-27] MEDS: INSULIN LISPRO 100 UNIT/ML 3 ML VIAL SUBCUT PRN (17:05)
[2018-02-27] MEDS: ESCITALOPRAM OXALATE 10 MG TABLET PO SCH (22:09)
[2018-02-27] MEDS: OXYCODONE-ACETAMINOPHEN 5-325 MG TABLET PO PRN (22:48)
[2018-02-28] MEDS: IPRATROPIUM/ALBUTEROL 0.5-2.5 MG/3 ML AMPUL NEB SCH ×4 (01:59→20:30)
[2018-02-28 05:52] LABS: HEMATOCRIT 28.3 % (36.0-47.0); HEMOGLOBIN 9.4 g/dL (12.0-15.5); MEAN CORPUSCULAR HEMOGLOBIN 28.6 pg (27.0-33.4); MEAN CORPUSCULAR HGB CONC 33.1 g/dL (32.0-36.0); MEAN CORPUSCULAR VOLUME 86 fl (80-97); PLATELET COUNT 397 10^3/uL (150-450); RED BLOOD COUNT 3.28 10^6/uL (3.72-5.28); WHITE BLOOD COUNT 5.5 10^3/uL (4.0-10.5)
[2018-02-28 06:03] LABS: ANION GAP 9 (5-19); BLOOD UREA NITROGEN 12 mg/dL (7-20); CALCIUM 9.5 mg/dL (8.4-10.2); CARBON DIOXIDE 27 mmol/L (22-30); CHLORIDE 105 mmol/L (98-107); GLUCOSE 129 mg/dL (75-110); POTASSIUM 4.1 mmol/L (3.6-5.0); SODIUM 141.4 mmol/L (137-145)
[2018-02-28] MEDS: LEVOTHYROXINE SODIUM 0.025 MG TABLET PO SCH (06:18)
[2018-02-28] MEDS: LEVOTHYROXINE SODIUM 0.1 MG TABLET PO SCH (06:18)
[2018-02-28] MEDS ORDERED: LANSOPRAZOLE 30 MG TAB.RAP.DR PO SCH (08:00)
[2018-02-28] MEDS ORDERED: PANTOPRAZOLE SODIUM 40 MG VIAL IV SCH (10:00)
[2018-02-28] MEDS: METOPROLOL SUCCINATE 25 MG TAB.SR.24H PO SCH (10:10)
[2018-02-28] MEDS: POTASSIUM CHLORIDE 10 MEQ CAPSULE.ER PO SCH (10:10)
[2018-02-28] MEDS: LUBIPROSTONE 24 MCG CAPSULE PO SCH ×2 (10:10→17:57)
[2018-02-28] MEDS: SITAGLIPTIN PHOSPHATE 50 MG TABLET PO SCH (10:10)
[2018-02-28] MEDS: CYCLOSPORINE 0.05% OPH EMULSIO 0.4 ML DROPERETTE OU SCH (10:10)
[2018-02-28] MEDS: DULOXETINE HCL 30 MG CAPSULE.DR PO SCH (10:10)
[2018-02-28] MEDS: FLUTICASONE NASAL SPRAY 50 MCG/SPRY 120 SPRAY/16 GM NAREB SCH (10:10)
[2018-02-28] MEDS: APIXABAN 5 MG TABLET PO SCH ×2 (10:11→17:57)
[2018-02-28] MEDS: BENAZEPRIL HCL 10 MG TABLET PO SCH (10:11)
[2018-02-28] MEDS: FLUTICASONE/SALMETEROL DISKUS 250-50 MCG/DOSE IH SCH (10:11)
[2018-02-28] MEDS: FUROSEMIDE 20 MG TABLET PO SCH (10:11)
--- NOTE | 2018-02-28 12:56 | PDOC TRANSFER SUMMARY ---
General - Admit/Disc Date/PCP Admission Date/Primary Care Provider: 02/22/18 20:23 Discharge Date: 02/28/18 - Discharge Diagnosis (1) Acute blood loss anemia due to GI bleedi Is this a current diagnosis for this admission?: Yes (2) Atrial fibrillation Is this a current diagnosis for this admission?: Yes (3) Diastolic congestive heart failure Is this a current diagnosis for this admission?: Yes (4) Obstructive sleep apnea Is this a current diagnosis for this admission?: Yes - Additional Information Resuscitation Status: Full Code Prescriptions: Apixaban [Eliquis 5 mg Tablet] 5 mg PO BID #60 tablet Home Medications: Benazepril HCl [Lotensin 10 mg Tablet] 10 mg PO DAILY 05/14/17 Cyclosporine [Restasis Droperette] 1 drop OU Q12 05/14/17 Duloxetine HCl [Cymbalta] 60 mg PO DAILY 05/14/17 Escitalopram Oxalate [Lexapro] 5 mg PO QHS 05/14/17 Furosemide [Lasix 20 mg Tablet] 20 mg PO DAILY 05/14/17 Levothyroxine Sodium [Synthroid] 125 mcg PO QAM 05/14/17 Lubiprostone [Amitiza 24 Mcg Capsule] 24 mcg PO BID 05/14/17 Metoprolol Succinate [Toprol Xl 25 mg Tab.sr] 37.5 mg PO DAILY 05/14/17 Montelukast Sodium [Singulair 10 mg Tablet] 10 mg PO QPM 05/14/17 Oxycodone HCl/Acetaminophen [Percocet 5-325 mg Tablet] 1 tab PO BIDP PRN Potassium Chloride 20 meq PO DAILY 05/14/17 Sitagliptin Phosphate [Januvia] 100 mg PO DAILY 05/14/17 Trazodone HCl [Desyrel 50 mg Tablet] 50 mg PO HSP PRN 05/14/17 Fluticasone Propionate [Flonase Nasal [place] 50 Mcg/[place] 16 gm] 2 spray NAREB Q12 02/22/18 Fluticasone/Salmeterol [Advair 250-50 Diskus 14 Dose/Diskus] 1 inh IH Q12 Apixaban [Eliquis 5 mg Tablet] 5 mg PO BID #60 tablet 02/28/18 History of Present Illness Admission Date/PCP: 02/22/18 20:23 History of Present Illness: LAM PETIT is a 72 year old female with a 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 Patient was recently on Naprosyn and prednisone complaining of diffuse abdominal pain and constipation she noted dark stools prompting evaluation emergency room. She is found to have a supratherapeutic INR of 3.2, hemoglobin of 7.7 and hard black stool with Hemoccult stool positive for blood. Patient is lying flat in no acute distress but visibly anxious. Currently denies pain while receiving 1 of 2 units of packed red blood cells. Patient denies previous episode of GI bleed. Hospital Course Hospital Course: This is 72s old black female patient admitted with chief complaint of abdominal pain entirety melanotic stool. Patient found to have dropping her hemoglobin which was 7.7. Patient transfused 2 units of packed RBC GI consultation was made and Dr. Hall performed upper and lower endoscopy and the colonoscopy revealed AVM at the ascending colon which was ablated. Her stay we discontinued her Coumadin and patient switched to Eliquis which she tolerated well. Since patient is deconditioned and debilitated she need recuperation at the rehab center. Today on the day of discharge on physical examination I found the patient sitting up by the bedside she is awake alert and oriented and she does not have any acute complaints. Physical Exam Vital Signs: Temp Pulse Resp BP Pulse Ox 98.5 F 72 18 114/63 98 02/28/18 11:51 02/28/18 11:51 02/28/18 11:51 02/28/18 11:51 02/28/18 11:51 Intake & Output 02/27/18 02/28/18 03/01/18 06:59 06:59 06:59 Intake Total 1422 1026 356 Balance 1422 1026 356 Weight 113.4 kg 114 kg General appearance: PRESENT: no acute distress Eye exam: PRESENT: conjunctiva pink Mouth exam: PRESENT: moist Neck exam: ABSENT: carotid bruit, JVD, lymphadenopathy, thyromegaly Respiratory exam: PRESENT: clear to auscultation michele. ABSENT: rales, rhonchi, wheezes Cardiovascular exam: PRESENT: RRR. ABSENT: diastolic murmur, rubs, systolic murmur GI/Abdominal exam: PRESENT: normal bowel sounds, soft. ABSENT: distended, guarding, mass, organolmegaly, rebound, tenderness Neurological exam: PRESENT: alert, awake, oriented to time, oriented to situation Psychiatric exam: PRESENT: normal mood Results Laboratory Results: 02/28/18 04:41 02/28/18 04:41 02/28/18 02/28/18 04:41 04:41 WBC 5.5 RBC 3.28 L Hgb 9.4 L Hct 28.3 L MCV 86 MCH 28.6 MCHC 33.1 RDW 17.0 H Plt Count 397 Sodium 141.4 Potassium 4.1 Chloride 105 Carbon Dioxide 27 Anion Gap 9 BUN 12 Creatinine 1.05 Est GFR ( Amer) > 60 Est GFR (Non-Af Amer) 52 L Glucose 129 H Calcium 9.5 Qualifiers - * PATIENT BEING DISCHARGED WITH ANY OF THE FOLLOWING DIAGNOSIS: Heart Failure VTE patient discharged on overlapping Therapy?: No Reason(s) for not prescribing Overlap Therapy:: Not indicated Stroke Pt being discharged on Anti-thrombolytic therapy?: No Reason(s) for not prescribing Anti-thrombolytic therapy:: Not indicated Stroke Pt being discharged on Anti-coagulation therapy?: No Reason(s) for not prescribing Anti-coagulation therapy:: Contraindicated Stroke Pt being discharged on Statins?: No Reason(s) for not prescribing Statins therapy:: Contraindicated OR Pt being discharged on Aspirin therapy?: No Reason(s) for not prescribing Aspirin therapy:: Not indicated OR Pt being discharged on Statins?: No Reason(s) for not prescribing Statin therapy:: Not indicated OR Pt discharged ACEI/ARBS?: No Reason(s) for not prescribing ACEI/ARBS:: Not indicated HF Pt being discharged on ACEI for LVEF less than 40%?: Yes HF Pt being discharged on ARBS for LVEF less than 40%?: Yes HF Pt with Afib discharged with Warfarin?: Yes HF Pt discharged on evidence-based Beta Yvette:: Yes
[2018-02-28] MEDS: MONTELUKAST SODIUM 10 MG TABLET PO SCH (17:57)
[2018-02-28 20:37] VITALS: BP 120/54
--- NOTE | 2018-03-08 06:43 | PDOC PROGRESS REPORT ---
Subjective Progress Note for:: 02/23/18 Subjective:: Patient seen and examined with nurse. Overnight patient had several episodes of anxiety requiring home dose of trazodone in addition to Haldol. Patient is tolerating p.o., denying abdominal pain, no new nursing issues otherwise. Reason For Visit: GIB,SUPRATHERAPUTIC INR, AFIB Physical Exam Vital Signs: Temp Pulse Resp BP Pulse Ox 98.4 F 75 16 120/54 L 97 02/28/18 19:34 02/28/18 20:32 02/28/18 20:32 02/28/18 19:34 02/28/18 20:32 General appearance: PRESENT: no acute distress, well-developed, well-nourished Head exam: PRESENT: atraumatic, normocephalic Eye exam: PRESENT: conjunctiva pink, EOMI, PERRLA. ABSENT: scleral icterus Ear exam: PRESENT: normal external ear exam Mouth exam: PRESENT: moist, tongue midline Neck exam: ABSENT: carotid bruit, JVD, lymphadenopathy, thyromegaly Respiratory exam: PRESENT: clear to auscultation michele. ABSENT: rales, rhonchi, wheezes Cardiovascular exam: PRESENT: RRR. ABSENT: diastolic murmur, rubs, systolic murmur Pulses: PRESENT: normal dorsalis pedis pul Vascular exam: PRESENT: normal capillary refill GI/Abdominal exam: PRESENT: normal bowel sounds, soft. ABSENT: distended, guarding, mass, organolmegaly, rebound, tenderness Rectal exam: PRESENT: deferred Extremities exam: PRESENT: full ROM. ABSENT: calf tenderness, clubbing, pedal edema Neurological exam: PRESENT: alert, awake, oriented to person, oriented to place , oriented to time, oriented to situation, CN II-XII grossly intact. ABSENT: motor sensory deficit Psychiatric exam: PRESENT: appropriate affect, normal mood. ABSENT: homicidal ideation, suicidal ideation Skin exam: PRESENT: dry, intact, warm. ABSENT: cyanosis, rash Results Laboratory Results: 02/28/18 04:41 02/28/18 04:41 Assessment & Plan - Diagnosis (1) Anemia requiring transfusions Is this a current diagnosis for this admission?: Yes Plan: 102 units of packed red blood cells initiated, follow-up CBC every 8 hours. (2) GI bleed Qualifiers: GI bleed type/associated pathology: unspecified gastrointestinal hemorrhage type Qualified Code(s): K92.2 - Gastrointestinal hemorrhage, unspecified Is this a current diagnosis for this admission?: Yes Plan: Unclear source given history of risks for upper and lower GI bleeding, however lack of elevated BUN suggesting slow lower GI bleeding. Possibly related to surgeries and complicated by supratherapeutic INR. IV Protonix initiated, follow-up CBC and GI consultation. (3) Paroxysmal atrial fibrillation Is this a current diagnosis for this admission?: Yes Plan: Continue beta-lacey, Coumadin held (4) Sleep apnea Qualifiers: Sleep apnea type: unspecified type Qualified Code(s): G47.30 - Sleep apnea , unspecified Is this a current diagnosis for this admission?: Yes Plan: BiPAP while asleep (5) Anticoagulated Is this a current diagnosis for this admission?: Yes Plan: Supratherapeutic INR, Coumadin held (6) Anxiety Is this a current diagnosis for this admission?: Yes Plan: Home regiment with Haldol as needed - Time Time Spent with patient: Less than 15 minutes - Inpatient Certification Medical Necessity: Need Close Monitoring Due to Risk of Patient Decompensation
== END 2018-02-28 21:47 | DRG 378 ==
LOC: ER 15:56 → EH 20:23 → 3N 02-23 01:44
PROVIDERS: ADMIT Internal Medicine; ATTEND Internal Medicine
PROC: 30233N1 Transfusion of Nonautologous Red Blood Cells into Peripheral Vein, Percutaneous Approach (ICD-10-PCS; 2018-02-22)
PROC: 30233K1 Transfusion of Nonautologous Frozen Plasma into Peripheral Vein, Percutaneous Approach (ICD-10-PCS; 2018-02-23)
PROC: 30233N1 Transfusion of Nonautologous Red Blood Cells into Peripheral Vein, Percutaneous Approach (ICD-10-PCS; 2018-02-23)
PROC: 30233K1 Transfusion of Nonautologous Frozen Plasma into Peripheral Vein, Percutaneous Approach (ICD-10-PCS; 2018-02-24)
PROC: 0W3P8ZZ Control Bleeding in Gastrointestinal Tract, Via Natural or Artificial Opening Endoscopic (ICD-10-PCS; principal; 2018-02-24 13:00)
PROC: 0DB68ZX Excision of Stomach, Via Natural or Artificial Opening Endoscopic, Diagnostic (ICD-10-PCS; 2018-02-24 13:00)
DX: K55.21 Angiodysplasia of colon with hemorrhage (principal); Z68.41 Body mass index [BMI] 40.0-44.9, adult; D62 Acute posthemorrhagic anemia; I50.32 Chronic diastolic (congestive) heart failure; D68.32 Hemorrhagic disorder due to extrinsic circulating anticoagulants; I48.0 Paroxysmal atrial fibrillation; T45.515A Adverse effect of anticoagulants, initial encounter; E03.9 Hypothyroidism, unspecified; E11.9 Type 2 diabetes mellitus without complications; K57.30 Diverticulosis of large intestine without perforation or abscess without bleeding; K64.8 Other hemorrhoids; E66.01 Morbid (severe) obesity due to excess calories; M79.7 Fibromyalgia; M35.3 Polymyalgia rheumatica; J44.9 Chronic obstructive pulmonary disease, unspecified; K44.9 Diaphragmatic hernia without obstruction or gangrene; M19.90 Unspecified osteoarthritis, unspecified site; F32.9 Major depressive disorder, single episode, unspecified; G47.33 Obstructive sleep apnea (adult) (pediatric); F41.9 Anxiety disorder, unspecified; Z85.41 Personal history of malignant neoplasm of cervix uteri; Z89.422 Acquired absence of other left toe(s); Z90.49 Acquired absence of other specified parts of digestive tract; Z82.49 Family history of ischemic heart disease and other diseases of the circulatory system; Z79.899 Other long term (current) drug therapy; Z88.8 Allergy status to other drugs, medicaments and biological substances; Z79.891 Long term (current) use of opiate analgesic; Z86.010 Personal history of colon polyps; Z79.02 Long term (current) use of antithrombotics/antiplatelets
CPT/HCPCS: 00813; 36415; 36430; 43239; 45388; 80048; 80053; 81001; 82272; 82607; 82728; 82746; 82962; 83540; 83550; 83690; 83735; 85025; 85027; 85045; 85610; 85730; 86850; 86900; 86901; 86920; 87070; 87077; 87186; 87205; 88305; 88342; 93005; 93010; 94640; 99285; G8978-GP; G8979-GP; G8980-GP; G8987-GO; G8988-GO; G8989-GO; J1630; J1815; J1885; J2250; J2704; J3480; J3490; J7620; P9016; P9017; S0164

== ENCOUNTER 2018-03-14 21:26 | Emergency (ER) | payer MEDICARE ==
[2018-03-14 21:54] VITALS: BP 139/77
[2018-03-14] MEDS ORDERED: VALACYCLOVIR HCL 500 MG TABLET PO ONE (23:59)
[2018-03-14] MEDS ORDERED: GABAPENTIN 300 MG CAPSULE PO ONE (23:59)
--- NOTE | 2018-03-15 00:05 | ER Document Report ---
ED General - General Chief Complaint: Skin Problem Stated Complaint: POSSIBLE RASH Time Seen by Provider: 03/14/18 23:36 Mode of Arrival: Ambulatory Information source: Patient Notes: Chief complaint: Skin rash History of complain:( obtained from----patient) 22 years old female presents today with a skin rash for the last nearly 7 days. Distributed along the right upper shoulder both anterior and posteriorly as well as the right upper arm over the elbow. Erythematous rash in crops. Which is very painful. With a history of chickenpox Onset: Sudden Duration: 1 week Severity: Moderate Quality: Sharp Context: Chickenpox Exacerbating factor and relieving factors: None REVIEW OF SYSTEMS: CONSTITUTIONAL : Denies fever, chills, or sweats. Denies recent illness. EENT: Denies eye, ear, throat, or mouth pain or symptoms. Denies nasal or sinus congestion or discharge. Denies throat, tongue, or mouth swelling or difficulty swallowing. CARDIOVASCULAR: Denies chest pain. Denies palpitations or racing or irregular heart beat. Denies ankle edema. RESPIRATORY: Denies cough, cold, or chest congestion. Denies shortness of breath, difficulty breathing, or wheezing. GASTROINTESTINAL: Denies distention. Denies nausea, vomiting, or diarrhea. Denies blood in vomitus, stools, or per rectum. Denies black, tarry stools. Denies constipation. GENITOURINARY: Denies difficulty urinating, painful urination, burning, frequency, blood in urine, or discharge. FEMALE GENITOURINARY: Denies vaginal bleeding, heavy or abnormal periods, irregular periods. Denies vaginal discharge or odor. MUSCULOSKELETAL: Denies back or neck pain or stiffness. Denies joint pain or swelling. SKIN: HEMATOLOGIC : Denies easy bruising or bleeding. LYMPHATIC: Denies swollen, enlarged glands. NEUROLOGICAL: Denies confusion or altered mental status. Denies passing out or loss of consciousness. Denies dizziness or lightheadedness. Denies headache. Denies weakness or paralysis or loss of use of either side. Denies problems with gait or speech. Denies sensory loss, numbness, or tingling. Denies seizures. PSYCHIATRIC: Denies anxiety or stress. Denies depression, suicidal ideation, or homicidal ideation. ALL OTHER SYSTEMS REVIEWED AND NEGATIVE. PHYSICAL EXAMINATION: GENERAL: Well-appearing, well-nourished and in no acute distress. Obesity HEAD: Atraumatic, normocephalic. EYES: Pupils equal round and reactive to light, extraocular movements intact, conjunctiva are normal. ENT: Nares patent, oropharynx clear without exudates. Moist mucous membranes. NECK: Normal range of motion, supple without lymphadenopathy LUNGS: Breath sounds clear to auscultation bilaterally and equal. No wheezes rales or rhonchi. HEART: Regular rate and rhythm without murmurs ABDOMEN: Soft, nontender, nondistended abdomen. No guarding, no rebound. No masses appreciated. Examination of genitals-deferred Musculoskeletal: . NEUROLOGICAL: Cranial nerves grossly intact. Normal speech, normal gait. Normal sensory, motor exams PSYCH: Normal mood, normal affect. SKIN: Skin over the C7 distribution involving the shoulder as well as elbow and inner arm has multiple erythematous scaly rash in crops. Dictation was performed using [employer] voice recognition software TRAVEL OUTSIDE OF THE [place] IN LAST 30 DAYS: No - HPI Context: Dictated - Related Data Allergies/Adverse Reactions: captopril [Captopril] Allergy (Severe, Verified 09/26/16 12:23) cough thimerosal [From Merthiolate] Allergy (Severe, Verified 09/26/16 12:23) severe rash Past Medical History - Social History Smoking Status: Never Smoker Chew tobacco use (# tins/day): No Smoking Education Provided: No Frequency of alcohol use: None Drug Abuse: None Lives with: Family Family History: Reviewed & Not Pertinent - 5 days, Hypertension, Other Patient has suicidal ideation: No Patient has homicidal ideation: No - Past Medical History Cardiac Medical History: Reports: Hx Atrial Fibrillation - A flutter, Hx Congestive Heart Failure, Hx Hypercholesterolemia, Hx Heart Murmur - req SBE prophylaxis Denies: Hx Coronary Artery Disease, Hx Heart Attack, Hx Hypertension Pulmonary Medical History: Reports: Hx Asthma - COPD, Hx Bronchitis, Hx COPD, Hx Sleep Apnea Denies: Hx Pneumonia, Hx Tuberculosis Neurological Medical History: Denies: Hx Cerebrovascular Accident - QUESTIONABLE FOR STROKE, NEG CT SCAN 2009, Hx Seizures Endocrine Medical History: Reports: Hx Diabetes Mellitus Type 1, Hx Diabetes Mellitus Type 2 Renal/ Medical History: Denies: Hx Peritoneal Dialysis Malignancy Medical History: Reports: Hx Cervical Cancer GI Medical History: Reports: Hx Hiatal Hernia. Denies: Hx Hepatitis, Hx Ulcer Musculoskeltal Medical History: Reports Hx Arthritis, Reports Hx Muscle Weakness - L. upper Skin Medical History: Reports Hx Cellulitis - (neck and shoulder) Psychiatric Medical History: Reports: Hx Depression Infectious Medical History: Denies: Hx Hepatitis Past Surgical History: Reports: Hx Abdominal Surgery - hernia, bowel obstruction , Hx Bowel Surgery, Hx Breast Surgery, Hx Cardiac Catheterization, Hx Gynecologic Surgery - D&C, Hx Herniorrhaphy, Hx Hysterectomy, Hx Open Heart Surgery - CATHS, ABLATION, Hx Oral Surgery, Hx Orthopedic Surgery - R knee, R toe,R knee, Hx Tonsillectomy, Hx Tubal Ligation, Other - Ablation for atrial fibrillation. Denies: Hx Mastectomy, Hx Pacemaker - Immunizations Hx Diphtheria, Pertussis, Tetanus Vaccination: Yes Hx Pneumococcal Vaccination: 09/06/10 Review of Systems - Review of Systems Notes: Dictated Physical Exam - Vital signs Vitals: Temp Pulse BP Pulse Ox 99.1 F 86 139/77 H 98 03/14/18 21:52 03/14/18 21:52 03/14/18 21:52 03/14/18 21:52 - Notes Notes: Dictated - General General appearance: No: Appears well Course - Re-evaluation Re-evalutation: 03/15/18 00:02 The disease process was explained to the family as well as the patient. - Vital Signs Vital signs: Temp Pulse Resp BP Pulse Ox 99.1 F 86 139/77 H 98 03/14/18 21:52 03/14/18 21:52 03/14/18 21:52 03/14/18 21:52 Discharge - Discharge Clinical Impression: Herpes zoster Qualifiers: Herpes zoster complications: without complications Qualified Code(s): B02.9 - Zoster without complications Condition: Fair Instructions: Shingles ([facility]) Prescriptions: Gabapentin 200 mg PO QID #60 capsule Valacyclovir HCl [Valtrex] 1,000 mg PO TID #30 tablet Referrals: FRANCISCO DICKINSON MD [Primary Care Provider] - Follow up as needed
== END 2018-03-15 00:57 ==
LOC: ER 21:26
DX: B02.9 Zoster without complications (principal); R21 Rash and other nonspecific skin eruption; M25.511 Pain in right shoulder; M79.601 Pain in right arm; M25.521 Pain in right elbow; J44.9 Chronic obstructive pulmonary disease, unspecified; E11.9 Type 2 diabetes mellitus without complications
CPT/HCPCS: 99282; A9270 ×2

== ENCOUNTER 2018-03-18 14:16 | Emergency (ER) | payer MEDICARE, OTHER ==
[2018-03-18] MEDS ORDERED: PANTOPRAZOLE SODIUM 40 MG VIAL IV ONE (14:46)
--- NOTE | 2018-03-18 14:55 | ER Document Report ---
ED General - General Chief Complaint: Rectal Bleeding Stated Complaint: BLOOD IN STOOL Time Seen by Provider: 03/18/18 14:32 Mode of Arrival: Medic Information source: Patient Notes: 72-year-old female presents the emergency department with complaints of black tarry stools. Patient states that this is been going on for the last couple of days. She denies any chest pain or abdominal pain. Patient states that she has a history of GI bleeding. She states that she was admitted to the hospital in January for similar. She has followed up outpatient with her lip cutter and scorer. Patient states that she has had polyps removed. Patient states that along with the GI bleeding she has also had some episodes of lightheadedness and has had a difficulty finding words. She denies any numbness , tingling, weakness, vision changes, slurred speech. Patient has a history of atrial fibrillation and is on eliquis. TRAVEL OUTSIDE OF THE [place] IN LAST 30 DAYS: No - HPI Onset: Last week Onset/Duration: Gradual Quality of pain: No pain Severity: None Pain Level: Denies Associated symptoms: Other - Lightheadedness Exacerbated by: Denies Relieved by: Denies Similar symptoms previously: Yes Recently seen / treated by doctor: No - Related Data Allergies/Adverse Reactions: captopril [Captopril] Allergy (Severe, Verified 03/18/18 14:36) cough thimerosal [From Merthiolate] Allergy (Severe, Verified 03/18/18 14:36) severe rash Past Medical History - Social History Smoking Status: Unknown if Ever Smoked Frequency of alcohol use: None Family History: Reviewed & Not Pertinent - 5 days, Hypertension, Other Patient has suicidal ideation: No Patient has homicidal ideation: No - Past Medical History Cardiac Medical History: Reports: Hx Atrial Fibrillation, Hx Congestive Heart Failure, Hx Hypercholesterolemia, Hx Heart Murmur - req SBE prophylaxis Denies: Hx Coronary Artery Disease, Hx Heart Attack, Hx Hypertension Pulmonary Medical History: Reports: Hx Asthma - COPD, Hx Bronchitis, Hx COPD, Hx Sleep Apnea Denies: Hx Pneumonia, Hx Tuberculosis Neurological Medical History: Denies: Hx Cerebrovascular Accident - QUESTIONABLE FOR STROKE, NEG CT SCAN 2009, Hx Seizures Endocrine Medical History: Reports: Hx Diabetes Mellitus Type 1, Hx Diabetes Mellitus Type 2 Renal/ Medical History: Denies: Hx Peritoneal Dialysis Malignancy Medical History: Reports: Hx Cervical Cancer GI Medical History: Reports: Hx Hiatal Hernia. Denies: Hx Hepatitis, Hx Ulcer Musculoskeletal Medical History: Reports Hx Arthritis, Reports Hx Muscle Weakness - L. upper Skin Medical History: Reports Hx Cellulitis - (neck and shoulder) Psychiatric Medical History: Reports: Hx Depression Infectious Medical History: Denies: Hx Hepatitis Past Surgical History: Reports: Hx Abdominal Surgery - hernia, bowel obstruction , Hx Bowel Surgery, Hx Breast Surgery, Hx Cardiac Catheterization, Hx Gynecologic Surgery - D&C, Hx Herniorrhaphy, Hx Hysterectomy, Hx Open Heart Surgery - CATHS, ABLATION, Hx Oral Surgery, Hx Orthopedic Surgery - R knee, R toe,R knee, Hx Tonsillectomy, Hx Tubal Ligation, Other - Ablation for atrial fibrillation. Denies: Hx Mastectomy, Hx Pacemaker - Immunizations Hx Diphtheria, Pertussis, Tetanus Vaccination: Yes Hx Pneumococcal Vaccination: 09/06/10 Review of Systems - Review of Systems Constitutional: Weakness EENT: No symptoms reported Cardiovascular: Lightheaded Respiratory: No symptoms reported Gastrointestinal: Nausea Genitourinary: No symptoms reported Female Genitourinary: No symptoms reported Musculoskeletal: No symptoms reported Skin: No symptoms reported Hematologic/Lymphatic: No symptoms reported Neurological/Psychological: No symptoms reported -: Yes All other systems reviewed and negative Physical Exam - Vital signs Vitals: Temp Pulse Resp BP Pulse Ox 98.8 F 84 16 122/49 L 97 03/18/18 14:28 03/18/18 14:28 03/18/18 14:28 03/18/18 14:28 03/18/18 14:28 Interpretation: Normal - Notes Notes: PHYSICAL EXAMINATION: GENERAL: Well-appearing, well-nourished and in no acute distress. HEAD: Atraumatic, normocephalic. EYES: Pupils equal round and reactive to light, extraocular movements intact, conjunctiva are normal. ENT: Nares patent, oropharynx clear without exudates. Moist mucous membranes. NECK: Normal range of motion, supple without lymphadenopathy LUNGS: Breath sounds clear to auscultation bilaterally and equal. No wheezes rales or rhonchi. HEART: Regular rate and rhythm without murmurs ABDOMEN: Soft, nontender, nondistended abdomen. No guarding, no rebound. No masses appreciated. No gross blood appreciated on rectal exam. No hemorrhoids. Female : deferred Musculoskeletal: Normal range of motion, no pitting or edema. No cyanosis. NEUROLOGICAL: Cranial nerves grossly intact. Normal speech, normal gait. Normal sensory, motor exams PSYCH: Normal mood, normal affect. SKIN: Warm, Dry, normal turgor, no rashes or lesions noted. Course - Re-evaluation Re-evalutation: 03/18/18 18:09 Labs and imaging obtained. Hemoccult negative stool. Hemoglobin is stable. Today's hemoglobin is 9.2. On 02/28/18 it was 9.4. Patient has not had any episodes of hematemesis while in the emergency department. She denies any abdominal pain. Patient feels comfortable with discharge back to [facility]. I instructed the patient to follow-up with her lip cutter and scorer this week, to continue taking medications as directed, and to return to the emergency department if she is having any worsening symptoms. Patient feels comfortable with the plan of care. - Vital Signs Vital signs: Temp Pulse Resp BP Pulse Ox 98.8 F 84 21 H 122/57 L 96 03/18/18 14:28 03/18/18 14:28 03/18/18 16:00 03/18/18 15:01 03/18/18 16:00 - Laboratory Result Diagrams: 03/18/18 14:35 03/18/18 14:35 Laboratory results interpreted by me: 03/18/18 03/18/18 03/18/18 14:35 14:35 14:35 RBC 3.44 L Hgb 9.2 L Hct 28.1 L MCH 26.8 L RDW 18.4 H Plt Count 459 H PT 17.5 H Est GFR (Non-Af Amer) 53 L Glucose 156 H Urine Blood 03/18/18 16:35 RBC Hgb Hct MCH RDW Plt Count PT Est GFR (Non-Af Amer) Glucose Urine Blood LARGE H - EKG Interpretation by Me Additional EKG results interpreted by me: 03/18/18 16:02 EKG: Ventricular rate 82, [place] interval 224, castration 102, QTc 491, sinus rhythm , left anterior fascicular block Discharge - Discharge Clinical Impression: Dark stools Anemia Qualifiers: Anemia type: unspecified type Qualified Code(s): D64.9 - Anemia, unspecified Condition: Stable Instructions: Anemia ([facility]) Referrals: FRANCISCO DICKINSON MD [Primary Care Provider] - Follow up as needed
[2018-03-18 15:06] LABS: ABSOLUTE BASOPHILS # (AUTO) 0.1 10^3/uL (0.0-0.2); ABSOLUTE EOSINOPHILS # (AUTO) 0.2 10^3/uL (0.0-0.6); ABSOLUTE LYMPHOCYTES (AUTO) 1.6 10^3/uL (0.5-4.7); ABSOLUTE MONOCYTES (AUTO) 0.5 10^3/uL (0.1-1.4); ABSOLUTE NEUT (AUTO) 4.3 10^3/uL (1.7-8.2); RED BLOOD COUNT 3.44 10^6/uL (3.72-5.28); RED CELL DISTRIBUTION WIDTH 18.4 % (11.5-14.0)
[2018-03-18 15:18] LABS: INTERNATIONAL RATION (INR) 1.36; PROTHROMBIN TIME 17.5 SEC (11.4-15.4)
[2018-03-18 15:19] LABS: BASOPHILS % (AUTO) 1.1 % (0-2); EOSINOPHILS % (AUTO) 3.3 % (0-6); HEMATOCRIT 28.1 % (36.0-47.0); HEMOGLOBIN 9.2 g/dL (12.0-15.5); LYMPHOCYTES % (AUTO) 23.7 % (13-45); MEAN CORPUSCULAR HEMOGLOBIN 26.8 pg (27.0-33.4); MEAN CORPUSCULAR HGB CONC 32.8 g/dL (32.0-36.0); MONOCYTES % (AUTO) 7.1 % (3-13); PLATELET COUNT 459 10^3/uL (150-450); SEGMENTED NEUTROPHILS % (AUTO) 64.8 % (42-78); TOTAL CELLS COUNTED % (AUTO) 100 %; WHITE BLOOD COUNT 6.6 10^3/uL (4.0-10.5)
[2018-03-18 15:20] LABS: MEAN CORPUSCULAR VOLUME 82 fl (80-97)
--- NOTE | 2018-03-18 15:24 | RADIOLOGY REPORT (SQ) ---
EXAM DESCRIPTION: CHEST SINGLE VIEW COMPLETED DATE/TIME: 03/18/2018 3:04 pm REASON FOR STUDY: lightheaded COMPARISON: 12/17/2016 EXAM PARAMETERS: NUMBER OF VIEWS: One view. TECHNIQUE: Single frontal radiographic view of the chest acquired. RADIATION DOSE: NA LIMITATIONS: None. FINDINGS: LUNGS AND PLEURA: No opacities, masses or pneumothorax. No pleural effusion. MEDIASTINUM AND HILAR STRUCTURES: No masses. Contour normal. HEART AND VASCULAR STRUCTURES: Cardiomegaly. No pulmonary edema. BONES: No acute findings. HARDWARE: None in the chest. OTHER: No other significant finding. IMPRESSION: Cardiomegaly without CHF. TECHNICAL DOCUMENTATION: JOB ID: [id number] [email or web address]- All Rights Reserved Reading location - IP/workstation name: [email or web address]
[2018-03-18 15:30] LABS: ALANINE AMINOTRANSFERASE 23 U/L (9-52); ALKALINE PHOSPHATASE 74 U/L (38-126); ANION GAP 14 (5-19); ASPARTATE AMINO TRANSFERASE 36 U/L (14-36); BILIRUBIN,DIRECT 0.4 mg/dL (0.0-0.4); BILIRUBIN,TOTAL 0.5 mg/dL (0.2-1.3); BLOOD UREA NITROGEN 16 mg/dL (7-20); CALCIUM 9.4 mg/dL (8.4-10.2); CARBON DIOXIDE 27 mmol/L (22-30); CHLORIDE 104 mmol/L (98-107); GLUCOSE 156 mg/dL (75-110); LIPASE 196.2 U/L (23-300); POTASSIUM 4.6 mmol/L (3.6-5.0); SODIUM 144.6 mmol/L (137-145); TOTAL PROTEIN 7.7 g/dL (6.3-8.2)
--- NOTE | 2018-03-18 15:46 | RADIOLOGY REPORT (SQ) ---
EXAM DESCRIPTION: CT HEAD WITHOUT COMPLETED DATE/TIME: 03/18/2018 3:34 pm REASON FOR STUDY: confusion COMPARISON: None. TECHNIQUE: Axial images acquired through the brain without intravenous contrast. Images reviewed wi th bone, brain and subdural windows. Additional sagittal and coronal reconstructions were generated. Images stored on PACS. All CT scanners at this facility use dose modulation, iterative reconstruction, and/or weight based d osing when appropriate to reduce radiation dose to as low as reasonably achievable (ALARA). [facility]: Dose Right [facility]: CareDose [facility]: Dose Right [facility]: Teradose 4D [facility]: ElectroCore RADIATION DOSE: CT Rad equipment meets quality standard of care and radiation dose reduction techniq ues were employed. CTDIvol: 48.5 mGy. DLP: 855 mGy-cm. mGy. LIMITATIONS: None. FINDINGS: VENTRICLES: Normal size and contour. CEREBRUM: No masses. No hemorrhage. No midline shift. No evidence for acute infarction. Normal gra y/white matter differentiation. No areas of low density in the white matter. CEREBELLUM: No masses. No hemorrhage. No alteration of density. No evidence for acute infarction. EXTRAAXIAL SPACES: No fluid collections. No masses. ORBITS AND GLOBE: No intra- or extraconal masses. Normal contour of globe without masses. CALVARIUM: No fracture. PARANASAL SINUSES: Maxillary ethmoid sinus disease. SOFT TISSUES: No mass or hematoma. OTHER: No other significant finding. IMPRESSION: NORMAL BRAIN CT WITHOUT CONTRAST. EVIDENCE OF ACUTE STROKE: NO. COMMENT: Quality ID # [id number]: Final reports with documentation of one or more dose reduction techniques (e.g., Automated exposure control, adjustment of the mA and/or kV according to patient size, use of iterative reconstruction technique) TECHNICAL DOCUMENTATION: JOB ID: [id number] [employer]- All Rights Reserved Reading location - IP/workstation name: [email or web address]
[2018-03-18 17:06] LABS: AMORPHOUS SEDIMENT,URINE TRACE /HPF; APPEARANCE,URINE SLIGHTLY-CLOUDY; BILIRUBIN,URINE NEGATIVE (NEGATIVE); COLOR,URINE YELLOW; GLUCOSE, URINE NEGATIVE (NEGATIVE); KETONES,URINE NEGATIVE (NEGATIVE); LEUKOCYTE ESTERASE,URINE NEGATIVE (NEGATIVE); NITRITE,URINE NEGATIVE (NEGATIVE); PROTEIN,URINE NEGATIVE (NEGATIVE); URINE SPECIFIC GRAVITY 1.014; UROBILINOGEN,URINE NEGATIVE mg/dL (<2.0)
[2018-03-18 18:26] VITALS: BP 112/63
--- NOTE | 2018-03-18 19:40 | EKG REPORT ---
SEVERITY:- ABNORMAL ECG - SINUS RHYTHM VENTRICULAR PREMATURE COMPLEX FIRST DEGREE AV BLOCK LEFT ANTERIOR FASCICULAR BLOCK BORDERLINE T ABNORMALITIES, ANT-LAT LEADS : Confirmed by: Maria Luisa Gama MD 18-Mar-2018 19:39:37
--- NOTE | 2018-03-18 19:40 | EKG REPORT ---
SEVERITY:- ABNORMAL ECG - SINUS RHYTHM ATRIAL PREMATURE COMPLEX FIRST DEGREE AV BLOCK LEFT ANTERIOR FASCICULAR BLOCK BORDERLINE T ABNORMALITIES, ANT-LAT LEADS BORDERLINE PROLONGED QT INTERVAL : Confirmed by: Maria Luisa aGma MD 18-Mar-2018 19:39:30
== END 2018-03-18 19:25 | disposition home or self-care (01) ==
LOC: ER 14:16
DX: R19.5 Other fecal abnormalities (principal); D64.9 Anemia, unspecified; R42 Dizziness and giddiness; J44.9 Chronic obstructive pulmonary disease, unspecified; E11.9 Type 2 diabetes mellitus without complications; Z98.890 Other specified postprocedural states
CPT/HCPCS: 93005; 99284; 96374; 36415; 83690; 85025; 85610; 82272; 80053; 81001; 84484; 71045; 70450; 93010; C9113; S0164

== ENCOUNTER → 2018-03-24 | Outpatient (CLI) | payer MEDICARE, OTHER ==
[2018-03-24 13:53] LABS: ABSOLUTE BASOPHILS # (AUTO) 0.1 10^3/uL (0.0-0.2); ABSOLUTE EOSINOPHILS # (AUTO) 0.2 10^3/uL (0.0-0.6); ABSOLUTE LYMPHOCYTES (AUTO) 1.7 10^3/uL (0.5-4.7); ABSOLUTE MONOCYTES (AUTO) 0.6 10^3/uL (0.1-1.4); ABSOLUTE NEUT (AUTO) 4.6 10^3/uL (1.7-8.2); BASOPHILS % (AUTO) 1.1 % (0-2); EOSINOPHILS % (AUTO) 2.9 % (0-6); HEMATOCRIT 25.7 % (36.0-47.0); HEMOGLOBIN 8.5 g/dL (12.0-15.5); MEAN CORPUSCULAR HEMOGLOBIN 26.7 pg (27.0-33.4); MEAN CORPUSCULAR HGB CONC 33.2 g/dL (32.0-36.0); MEAN CORPUSCULAR VOLUME 81 fl (80-97); MONOCYTES % (AUTO) 8.1 % (3-13); PLATELET COUNT 437 10^3/uL (150-450); RED BLOOD COUNT 3.19 10^6/uL (3.72-5.28); RED CELL DISTRIBUTION WIDTH 18.8 % (11.5-14.0); SEGMENTED NEUTROPHILS % (AUTO) 63.9 % (42-78); TOTAL CELLS COUNTED % (AUTO) 100 %; WHITE BLOOD COUNT 7.2 10^3/uL (4.0-10.5)
[2018-03-24 13:57] LABS: ANION GAP 10 (5-19); BLOOD UREA NITROGEN 17 mg/dL (7-20); CALCIUM 9.4 mg/dL (8.4-10.2); CARBON DIOXIDE 25 mmol/L (22-30); CHLORIDE 107 mmol/L (98-107); GLUCOSE 114 mg/dL (75-110); POTASSIUM 4.3 mmol/L (3.6-5.0); SODIUM 142.2 mmol/L (137-145)
== END ==
LOC: OD 12:57
PROVIDERS: ATTEND Internal Medicine
DX: E11.9 Type 2 diabetes mellitus without complications (principal); D62 Acute posthemorrhagic anemia; I48.91 Unspecified atrial fibrillation; E03.9 Hypothyroidism, unspecified
CPT/HCPCS: 36415; 80048; 83036; 84443; 85025

== ENCOUNTER → 2018-03-28 | Outpatient (CLI) | payer MEDICARE, OTHER ==
--- NOTE | 2018-03-28 15:10 | RADIOLOGY REPORT (SQ) ---
EXAM DESCRIPTION: BARIUM SWALLOW ESOPHAGUS COMPLETED DATE/TIME: 03/28/2018 10:08 am REASON FOR STUDY: DYSPHAGIA (R13.10) R13.10 DYSPHAGIA, UNSPECIFIED COMPARISON: None. TECHNIQUE: Under fluoroscopic guidance, patient ingested effervescent granules followed by thick and thin barium. Fluoroscopic spot images and routine radiographic images acquired and stored on PACS. 12 MM BARIUM TABLET GIVEN: The patient swallowed a 12 mm barium tablet which passed easily through th e esophagus and into the stomach without delay. LIMITATIONS: None. FLUOROSCOPY TIME: FLUORO TIME: 2.31 minutes 7 images saved to PACS. FINDINGS: NEUROMUSCULAR COORDINATION OF SWALLOW: Normal. No aspiration. ESOPHAGEAL MOTILITY: Moderate esophageal dysmotility with mild tertiary contractions seen. ESOPHAGEAL MUCOSA: Normal mucosa without masses or ulceration. GASTRO-ESOPHAGEAL JUNCTION: No hiatal hernia or reflux. NON-GI TRACT STRUCTURES: No significant finding. OTHER: No other significant finding. IMPRESSION: MODERATE ESOPHAGEAL DYSMOTILITY WITH MILD TERTIARY CONTRACTIONS SEEN. OTHERWISE UNREMAR KABLE STUDY. RECOMMENDATION: NONE COMMENT: NONE Quality ID [id number]: Final reports for procedures using fluoroscopy that document radiation exposure aurelia darryn, or exposure time and number of fluorographic images (if radiation exposure indices are not avail able) TECHNICAL DOCUMENTATION: JOB ID: [id number] [employer]- All Rights Reserved Reading location - IP/workstation name: [email or web address] [id number]
== END ==
LOC: RAD 09:21
PROVIDERS: ATTEND Otolaryngology
DX: R13.10 Dysphagia, unspecified (principal)
CPT/HCPCS: 74220

== ENCOUNTER → 2018-03-31 | Outpatient (CLI) | payer MEDICARE ==
--- NOTE | 2018-04-03 13:01 | XCELERA REPORT ---
[address] [address] Transthoracic Echocardiogram Report Name: LAM PETIT Age: 72 yrs Gender: Female : 1945 Patient Status: Preadmit Patient Location: Study Date: 03/31/2018 03:40 PM Height: 63 in Weight: 235 lb BSA: 2.1 m2 Procedure: A two-dimensional transthoracic echocardiogram with color flow Doppler was performed. Study Quality: Fair. Reason For Study: CHEST PAIN History: CHEST PAIN. Ordering Physician: MARIA LUISA RODRIGUEZ Performed By: Sujey Arrington Interpretation Summary The left ventricle is normal in size. There is normal left ventricular wall thickness. LV EF is 65% Left ventricular systolic function is normal. Doppler measurements suggest normal left ventricular diastolic function The left ventricular wall motion is normal. There is no thrombus. There is no ventricular septal defect visualized. The right ventricle is normal in size and function. The right atrium is normal. The left atrial size is normal. The interatrial septum is intact with no evidence for an atrial septal defect. There is no evidence of mitral valve prolapse. There is no vegetation seen on the mitral valve. There is no mitral valve stenosis. There is a mild amount of mitral regurgitation There is no aortic valvular vegetation. There is mild aortic stenosis There is a peak gradient of of 30 mm of Hg , and mean gradient of 18 mm of Hg. There is no LVOT obstruction. No hemodynamically significant valvular aortic stenosis. No aortic regurgitation is present. There is no tricuspid stenosis. There is a trace amount of tricuspid regurgitation Unable to calculate RVSP due to insufficient TR jet. There is a trace amount of pulmonic regurgitation There is no pulmonic valvular stenosis. The aortic root is normal size. There is no pericardial effusion. MMode/2D Measurements & Calculations RVDd: 2.3 cm LVIDd: 4.9 cm FS: 37.3 % Ao root diam: IVSd: 0.95 cm LVIDs: 3.1 cm EDV(Teich): 2.7 cm LVPWd: 0.97 cm 114.0 ml Ao root area: ESV(Teich): 37.5 ml 5.7 cm2 EF(Teich): LA dimension: 67.1 % 3.7 cm LVOT diam: 2.2 cm LA A2Cs: LA A4Cs: LA length: 6.4 cm LVOT area: 3.8 cm2 35.3 cm2 28.0 cm2 LA Vol Index (BP): LA Volume: 130.9 ml 63.2 ml/m2 Doppler Measurements & Calculations MV E max tere: MV P1/2t max tere: Ao V2 max: LV V1 max P.7 cm/sec 138.2 cm/sec 274.4 cm/sec 6.2 mmHg MV A max tere: MV P1/2t: 63.4 msec Ao max PG: LV V1 mean P.6 cm/sec MVA(P1/2t): 3.5 cm2 30.1 mmHg 4.0 mmHg MV E/A: 1.2 MV dec slope: Ao V2 mean: LV V1 max: 192.0 cm/sec 124.1 cm/sec 638.9 cm/sec2 Ao mean PG: LV V1 mean: MV dec time: 18.0 mmHg 90.8 cm/sec 0.21 sec Ao V2 VTI: 62.9 cm LV V1 VTI: MARQUIS(I,D): 2.1 cm2 34.8 cm MARQUIS(V,D): 1.7 cm2 SV(LVOT): 133.4 ml PA V2 max: PI end-d tere: 99.7 cm/sec 118.1 cm/sec PA max P.0 mmHg Left Ventricle The left ventricle is normal in size. There is normal left ventricular wall thickness. LV EF is 65%. Left ventricular systolic function is normal. Doppler measurements suggest normal left ventricular diastolic function. The left ventricular wall motion is normal. There is no thrombus. There is no ventricular septal defect visualized. Right Ventricle The right ventricle is normal in size and function. Atria The right atrium is normal. The left atrial size is normal. The interatrial septum is intact with no evidence for an atrial septal defect. Mitral Valve There is no evidence of mitral valve prolapse. There is no vegetation seen on the mitral valve. There is no mitral valve stenosis. There is a mild amount of mitral regurgitation. Aortic Valve There is no aortic valvular vegetation. There is mild aortic stenosis. There is a peak gradient of of 30 mm of Hg , and mean gradient of 18 mm of Hg. There is no LVOT obstruction. No hemodynamically significant valvular aortic stenosis. No aortic regurgitation is present. Tricuspid Valve There is no tricuspid stenosis. There is a trace amount of tricuspid regurgitation. Unable to calculate RVSP due to insufficient TR jet. Pulmonic Valve There is no pulmonic valvular stenosis. There is a trace amount of pulmonic regurgitation. Great Vessels The aortic root is normal size. Effusions There is no pericardial effusion. : MARIA LUISA RODRIGUEZ > Maria Luisa Rodriguez
== END ==
LOC: SP 16:21
PROVIDERS: ATTEND Specialist
DX: R07.9 Chest pain, unspecified (principal)
CPT/HCPCS: 93306

== ENCOUNTER → 2018-04-06 | Outpatient (CLI) | payer MEDICARE, OTHER ==
[~2018-04-06] MED LIST: REGADENOSON INJ 0.4 MG/5 ML DISP.SYRIN IV ONE
--- NOTE | 2018-04-12 23:03 | DRAGON STRESS TEST REPORT ---
Intravenous Lexiscan Cardiolite stress test using single photon emmision computerized tomography. Date of procedure: 04/06/2018. Ordering Provider: Dr. Maria Luisa Gama. Patient's status: Out Patient. Indication: Chest pain. Coronary risk factors: Age, diabetes, hypertension, dyslipidemia paroxysmal atrial fibrillation, and family history of coronary artery disease.. Resting EKG: Sinus Rhythm. First-degree AV block. Nonspecific IVCD. Stress EKG: No changes of ischemia. The patient no chest pain or discomfort, and there were no arrhythmias seen. Reason for termination: Protocol. Conclusions: Normal EKG and hemodynamic response to IV Lexiscan. Nuclear data: At rest the patient was given 13.10 millicuries of technetium 99m sestamibi injected intravenously. As per protocol rest non gated SPECT images were obtained. Subsequently the patient was given intravenous Lexiscan at a dose of 0.4 mg in 5 mL intravenously, followed by flush with normal saline. Subsequently the stress dose of 44.6 millicuries of technetium 99m sestamibi was injected intravenously. As per protocol stress gated images were obtained. Nuclear interpretation: Review of images showed that there is a perfusion defect in both the rest and stress images involving the anterior wall. This area has normal motion contraction and thickening the gated study. This is secondary to breast tissue attenuation artifact. The rest of the segments of the myocardium had normal perfusion at rest, and normal perfusion post stress with IV Lexiscan. All segments of the myocardium had normal motion, contraction, and thickening by gated study. T. I D. ratio was normal at 1.17. Computer read rest, and stress left ventricular ejection fraction were 67 %, and 71 %, respectively. Conclusion: 1. There is no scintigraphic evidence of Lexiscan induced myocardial ischemia. 2. There is no scintigraphic evidence of myocardial infarction/scar. Recommendations: Aggressive risk factor modification, and treating the underlying co- morbidities. MTDD
== END ==
LOC: RAD 06:51
PROVIDERS: ATTEND Specialist
DX: R07.9 Chest pain, unspecified (principal); I10 Essential (primary) hypertension; E78.5 Hyperlipidemia, unspecified; E11.9 Type 2 diabetes mellitus without complications
CPT/HCPCS: 93017; 78452; A9500; J2785; Q9969

== ENCOUNTER → 2018-04-15 | Outpatient (CLI) | payer MEDICARE ==
[2018-04-15 10:58] LABS: ABSOLUTE EOSINOPHILS # (AUTO) 0.2 10^3/uL (0.0-0.6); ABSOLUTE LYMPHOCYTES (AUTO) 1.4 10^3/uL (0.5-4.7); ABSOLUTE MONOCYTES (AUTO) 0.5 10^3/uL (0.1-1.4); ABSOLUTE NEUT (AUTO) 3.5 10^3/uL (1.7-8.2); BASOPHILS % (AUTO) 0.8 % (0-2); EOSINOPHILS % (AUTO) 3.2 % (0-6); HEMATOCRIT 27.5 % (36.0-47.0); HEMOGLOBIN 8.8 g/dL (12.0-15.5); LYMPHOCYTES % (AUTO) 25.6 % (13-45); MEAN CORPUSCULAR HEMOGLOBIN 25.8 pg (27.0-33.4); MEAN CORPUSCULAR VOLUME 81 fl (80-97); MONOCYTES % (AUTO) 8.2 % (3-13); PLATELET COUNT 333 10^3/uL (150-450); RED BLOOD COUNT 3.42 10^6/uL (3.72-5.28); RED CELL DISTRIBUTION WIDTH 20.3 % (11.5-14.0); SEGMENTED NEUTROPHILS % (AUTO) 62.2 % (42-78); TOTAL CELLS COUNTED % (AUTO) 100 %; WHITE BLOOD COUNT 5.6 10^3/uL (4.0-10.5)
[2018-04-15 11:19] LABS: ASPARTATE AMINO TRANSFERASE 21 U/L (14-36); BILIRUBIN,DIRECT 0.3 mg/dL (0.0-0.4); BILIRUBIN,TOTAL 0.5 mg/dL (0.2-1.3); BLOOD UREA NITROGEN 15 mg/dL (7-20); CALCIUM 9.6 mg/dL (8.4-10.2); CHOLESTEROL 155.91 mg/dL (0-200); TRIGLYCERIDES 95 mg/dL (<150)
[2018-04-15 11:26] LABS: ALANINE AMINOTRANSFERASE 21 U/L (9-52); ALBUMIN 3.9 g/dL (3.5-5.0); ALKALINE PHOSPHATASE 71 U/L (38-126); ANION GAP 11 (5-19); ASPARTATE AMINO TRANSFERASE 21 U/L (14-36); BILIRUBIN,DIRECT 0.3 mg/dL (0.0-0.4); BILIRUBIN,TOTAL 0.5 mg/dL (0.2-1.3); BLOOD UREA NITROGEN 15 mg/dL (7-20); CALCIUM 9.6 mg/dL (8.4-10.2); CARBON DIOXIDE 27 mmol/L (22-30); CHLORIDE 107 mmol/L (98-107); GLUCOSE 122 mg/dL (75-110); POTASSIUM 4.4 mmol/L (3.6-5.0); SODIUM 145.1 mmol/L (137-145); TOTAL PROTEIN 7.3 g/dL (6.3-8.2)
[2018-04-15 11:33] LABS: DIRECT LDL 61 mg/dL (<100)
[2018-04-15 11:39] LABS: FREE T4 (FREE THYROXINE) 1.34 ng/dL (0.78-2.19)
[2018-04-15 11:53] LABS: THYROID STIMULATING HORMONE 9.08 uIU/mL (0.47-4.68)
[2018-04-16 11:38] LABS: CREATININE URINE 58.9 mg/dL (Not Estab.); MICROALBUMIN URINE <3.0 ug/mL (Not Estab.)
[2018-04-18 13:42] LABS: GLUCOSE 122 mg/dL (75-110)
[2018-04-18 13:43] LABS: CHLORIDE 107 mmol/L (98-107); POTASSIUM 4.4 mmol/L (3.6-5.0)
[2018-04-18 13:44] LABS: ANION GAP 11 (5-19); CARBON DIOXIDE 27 mmol/L (22-30); SODIUM 145.1 mmol/L (137-145)
[2018-04-18 13:45] LABS: ALANINE AMINOTRANSFERASE 21 U/L (9-52); ALBUMIN 3.9 g/dL (3.5-5.0); ALKALINE PHOSPHATASE 71 U/L (38-126)
[2018-04-18 13:46] LABS: TOTAL PROTEIN 7.3 g/dL (6.3-8.2)
== END ==
LOC: OD 09:20
PROVIDERS: ATTEND Internal Medicine
DX: Z00.00 Encounter for general adult medical examination without abnormal findings (principal); E78.2 Mixed hyperlipidemia; E11.9 Type 2 diabetes mellitus without complications; I10 Essential (primary) hypertension; Z13.21 Encounter for screening for nutritional disorder; E03.9 Hypothyroidism, unspecified; I25.118 Atherosclerotic heart disease of native coronary artery with other forms of angina pectoris; I48.0 Paroxysmal atrial fibrillation; I35.0 Nonrheumatic aortic (valve) stenosis; Z79.01 Long term (current) use of anticoagulants; G45.9 Transient cerebral ischemic attack, unspecified; R07.2 Precordial pain; Z79.899 Other long term (current) drug therapy
CPT/HCPCS: 36415; 80053; 80061; 82043; 82306; 82570; 83036; 84439; 84443; 85025

== ENCOUNTER → 2018-04-27 | Outpatient (CLI) | payer MEDICARE, OTHER ==
--- NOTE | 2018-04-27 14:45 | WOMENS IMAGING REPORT ---
EXAM DESCRIPTION: 3D SCREENING MAMMO BILAT COMPLETED DATE/TIME: 04/27/2018 2:34 pm REASON FOR STUDY: ROUTINE SCREENING Z12.31 Z12.31 ENCNTR SCREEN MAMMOGRAM FOR MALIGNANT NEOPLASM OF [place] COMPARISON: [id number] TECHNIQUE: Standard craniocaudal and mediolateral oblique views of each breast recorded using digita l acquisition and breast tomosynthesis. LIMITATIONS: None. FINDINGS: Findings present which are benign by mammographic criteria. No suspicious masses, calcifi cations or architectural distortion. Pertinent benign findings: Bilateral calcifications. Read with the assistance of CAD. .[facility] - R2 Cenova Version 1.3 .[facility] Imaging - R2 Cenova Version 1.3 .[facility] - R2 Cenova Version 2.4 .[facility] - R2 Cenova Version 2.4 .[facility] - R2 [employer] Level Civil [employer] Version 9.2 Benign mammographic findings may include one or more of the following: Smooth masses, popcorn/rim/co arse calcifications, asymmetries, post-procedure changes, and lesions with long-standing stability. IMPRESSION: BENIGN MAMMOGRAPHIC FINDINGS. BIRADS 2 BREAST DENSITY: b. There are scattered areas of fibroglandular density. BIRAD: 2 BENIGN FINDING(S) RECOMMENDATION: RECOMMENDATION: ROUTINE SCREENING COMMENT: The patient has been notified of the results by letter per SA requirements. Additional no tification policies are in place for contacting patient with suspicious or incomplete findings. Quality ID #[id number]: The [employer] recommends an annual screening mammogram for women aged 40 years or over. This facility utilizes a reminder system to ensure that all patients receive reminder letters, and/or direct phone calls for appointments. This includes reminders for routine scr eening mammograms, diagnostic mammograms, or other Breast Imaging Interventions when appropriate. Th is patient will be placed in the appropriate reminder system. The [employer] (ACR) has developed recommendations for screening MRI of the breast s in certain patient populations, to be used in conjunction with mammography. Breast MRI surveillanc e may be appropriate for women with more than 20% lifetime risk of developing breast cancer as deter mined by genetic testing, significant family history of the disease, or history of mantle radiation f or Hodgkins Disease. ACR Practice Guidelines 2008. DBT Technology DBT is a type of tomographic mammography. With conventional mammography, overlapping breast tissue ma y make lesions difficult to detect, even with good compression. DBT uses an x-ray tube that rotates a round the breast, taking images at different angles. These images are then combined to create thin sl ices of the breast that the radiologist can view as a 3D reconstruction. The Hologic unit can perform full-field digital mammograms (2D imaging); or DBT (3D imaging); or both, in a combination mode that quickly performs both the mammogram and the tomosynthesis scan while the breast is still compressed. PQRS 6045F: Fluoroscopic imaging is not utilized for breast tomosynthesis. TECHNICAL DOCUMENTATION: FINDING NUMBER: (1) ASSESSMENT: (1) JOB ID: [id number] [employer]- All Rights Reserved Reading location - IP/workstation name: [email or web address]
== END ==
LOC: WI 14:08
PROVIDERS: ATTEND Nurse Practitioner
DX: Z12.31 Encounter for screening mammogram for malignant neoplasm of breast (principal)
CPT/HCPCS: 77063; 77067